=== PATIENT | female | born 1955 | race Caucasian/White ===

== ENCOUNTER → 2017-08-29 07:03 | Outpatient (CLI) | payer BC, SELFPAY ==
[2017-08-29 07:53] LABS: Absolute Lymphocyte Count 1.95 X10^3/ul (0.83-4.51); Absolute Neutrophil Count 3.5 X10^3/uL (2.0-7.7); Basophil# 0.03 X10^3/uL; Basophil% 0.5 % (0-1); Eosinophil# 0.12 X10^3/uL; Eosinophils% 1.9 % (0-5); Hematocrit 40.6 % (37-47); Hemoglobin 13.5 g/dl (12.0-15.0); Lymphocyte # 1.95 X10^3/ul (4.0); Lymphocyte % 31.3 % (19-41); Mean Corp Hgb Conc 33.3 g/gl (32-36); Mean Corpuscular Hgb 30.7 pg (27.0-32.0); Mean Corpuscular Volume 92.3 fL (81-99); Mean Platelet Vol. 9.9 fl (6.2-12.0); Monocyte# 0.65 X10^3/uL; Monocyte% 10.4 % (0-10); Neutrophil # 3.47 X10^3/uL (2.7-7.7); Neutrophil % 55.7 % (47-70); POSITIVE COUNT NO; POSITIVE DIFFERENTIAL NO; POSITIVE MORPHOLOGY NO; Platelet Count 281 K/mm3 (150-450); RBC Distribution Width CV 12.2 % (11.6-14.6); RBC Distribution Width SD 40.9 fl (35.1-43.9); White Blood Count 6.2 K/mm3 (4.4-11.0)
[2017-08-29 08:23] LABS: ALB/GLOB Ratio 1.1 RATIO (0.9-2.4); AST(SGOT) 18 U/L (15-37); Alanine Aminotransfer ALT/SGPT 28 U/L (13-56); Albumin, Serum 3.7 g/dL (3.2-5.0); Alkaline Phosphatase 88 U/L (45-117); Anion Gap 8 (5-15); BUN 15 mg/dL (7-18); BUN/Creat Ratio 18.9 RATIO (10-20); Calcium,Total 8.8 mg/dL (8.5-10.1); Chloride 107 mmol/L (98-107); Cholesterol 191 mg/dL (200); Creatinine, Serum 0.79 mg/dL (0.55-1.02); EST Glomerular Filtration Rate 78 mL/min (>60); Est Glom Filt Rate - Afr Amer 95 mL/min (>60); Globulin 3.5 g/dL (2.2-4.2); Glucose 128 mg/dL (74-106); High Density Lipoprotein 39 mg/dL; Potassium 4.6 mmol/L (3.5-5.1); Protein, Total 7.2 g/dL (6.4-8.2); Sodium Level 139 mmol/L (136-145); Thyroid Stim Hormone (TSH) 2.31 uIU/mL (0.358-3.74); Triglycerides 223 mg/dL; Very Low Density Lipoprotein 45 mg/dL (5-40)
[2017-08-29 08:46] LABS: Hemoglobin A1c 6.9 % (4.2-6.3)
[2017-08-31 10:00] LABS: Hep C Antibodies <0.1 s/co ratio (0.0-0.9)
[2017-08-31 13:14] LABS: Vitamin D,25 Hydroxy 35.8 ng/mL (29.95-100.01)
== END ==
PROVIDERS: Family Provider Family Medicine Geriatric Medicine; PCP Family Medicine Geriatric Medicine; Visit Provider Family Medicine Geriatric Medicine
DX: E11.9 Type 2 diabetes mellitus without complications (principal); E78.4 Other hyperlipidemia; E55.9 Vitamin D deficiency, unspecified; Z13.89 Encounter for screening for other disorder
CPT/HCPCS: 36415; 80053; 80061; 82306; 83036; 84443; 85025; 86803

== ENCOUNTER → 2018-02-11 15:43 | Outpatient (CLI) | payer BC, SELFPAY ==
--- NOTE | 2018-02-11 15:48 | BD_ITS ---
STUDY: DUAL ENERGY X-RAY ABSORPTIOMETRY / DXA REASON FOR EXAM: Female, 62 years old. The patient is postmenopausal. No loss of height. TECHNIQUE: Bone Mineral Density (BMD) measurements of lumbar spine and bilateral hips were obtained. COMPARISON: Comparison is made with prior study dated November 21, 2010. FINDINGS: Lumbar Spine (L1-L4): g/cm2 (1.213) / T-score (0.3) / Z-score (1.5) Findings are suggestive of normal bone density with a low fracture risk. Left Femur Total: g/cm2 (0.922) / T-score (-0.7) / Z-score (0.3) Left Femoral Neck: g/cm2 (0.915) / T-score (-0.9) / Z-score (0.4) Right Femur Total: g/cm2 (0.901) / T-score (-0.8) / Z-score (0.1) Right Femoral Neck: g/cm2 (0.872) / T-score (-1.2) / Z-score (0.1) The T-Scores on the most recent prior examination were: Lumbar Spine (L1-L4): There has been improvement of bone density since the previous examination. Left Femur Total: which represents a worsening of 3.3%. Right Femur Total: which represents a worsening of 7.5%. BD/Dexa Bone Density Study IMPRESSION: The patient is considered osteopenic as outlined below according to World Drew Organization (WHO) criteria with a low fracture risk. There has been worsening of bone density since the previous examination. Reference Information: The T-score is the number of standard deviations above or below the standard which is normal for young adults at their peak bone mineral density. The World Health Organization (WHO) interprets the T-scores as follows: Above -1 Normal bone density Between -1 and -2.5 Osteopenia Equal to / or below -2.5 Osteoporosis As a practical clinical guideline, osteopenia may be graded as follows: Mild -1 through -1.5 Moderate -1.6 through -2.0 Severe -2.1 through -2.4 The Z-score is the number of standard deviations above or below age-matched controls. A Z-score of less than -1.5 would be considered abnormal. References: 1. NIH Osteoporosis and Related Bone Diseases http://www.osteo.org 2. International Society for Clinical Densitometry http://www.iscd.org 3. National Osteoporosis Foundation http://www.nof.org Electronically Signed: Hira Hoyt MD at 16:04 EST Tel [phone], Service support ,
== END ==
PROVIDERS: Family Provider Family Medicine Geriatric Medicine; PCP Family Medicine Geriatric Medicine
DX: E89.40 Asymptomatic postprocedural ovarian failure (principal); M85.80 Other specified disorders of bone density and structure, unspecified site
CPT/HCPCS: 77080

== ENCOUNTER → 2018-03-06 06:54 | Outpatient (CLI) | payer BC, SELFPAY ==
[2018-03-06 09:05] LABS: Absolute Lymphocyte Count 1.97 X10^3/ul (0.83-4.51); Absolute Neutrophil Count 2.8 X10^3/uL (2.0-7.7); Basophil# 0.04 X10^3/uL; Basophil% 0.7 % (0-1); Eosinophil# 0.06 X10^3/uL; Eosinophils% 1.1 % (0-5); Hematocrit 41.3 % (37-47); Hemoglobin 13.4 g/dl (12.0-15.0); Lymphocyte # 1.97 X10^3/ul (4.0); Lymphocyte % 36.4 % (19-41); Mean Corp Hgb Conc 32.4 g/gl (32-36); Mean Corpuscular Hgb 30.2 pg (27.0-32.0); Monocyte# 0.51 X10^3/uL; Monocyte% 9.4 % (0-10); Neutrophil # 2.82 X10^3/uL (2.7-7.7); Neutrophil % 52.2 % (47-70); Platelet Count 268 K/mm3 (150-450); RBC Distribution Width CV 12.3 % (11.6-14.6); RBC Distribution Width SD 41.8 fl (35.1-43.9); Red Blood Count 4.44 M/mm3 (4.2-5.4); White Blood Count 5.4 K/mm3 (4.4-11.0)
[2018-03-06 09:06] LABS: POSITIVE COUNT NO; POSITIVE DIFFERENTIAL NO; POSITIVE MORPHOLOGY NO
[2018-03-06 09:27] LABS: Hemoglobin A1c 7.3 % (4.2-6.3)
[2018-03-06 09:43] LABS: ALB/GLOB Ratio 1.1 RATIO (0.9-2.4); AST(SGOT) 21 U/L (15-37); Alanine Aminotransfer ALT/SGPT 31 U/L (13-56); Albumin, Serum 3.8 g/dL (3.2-5.0); Alkaline Phosphatase 89 U/L (45-117); Anion Gap 9 (5-15); BUN 15 mg/dL (7-18); BUN/Creat Ratio 21.8 RATIO (10-20); Calcium,Total 8.9 mg/dL (8.5-10.1); Chloride 106 mmol/L (98-107); Cholesterol 185 mg/dL (200); Creatinine, Serum 0.69 mg/dL (0.55-1.02); EST Glomerular Filtration Rate 92 mL/min (>60); Est Glom Filt Rate - Afr Amer 112 mL/min (>60); Globulin 3.4 g/dL (2.2-4.2); Glucose 119 mg/dL (74-106); High Density Lipoprotein 41 mg/dL; Potassium 4.2 mmol/L (3.5-5.1); Protein, Total 7.2 g/dL (6.4-8.2); Sodium Level 141 mmol/L (136-145); Thyroid Stim Hormone (TSH) 1.98 uIU/mL (0.358-3.74); Triglycerides 192 mg/dL; Very Low Density Lipoprotein 38 mg/dL (5-40)
== END ==
PROVIDERS: Family Provider Family Medicine Geriatric Medicine; PCP Family Medicine Geriatric Medicine; Referring Provider Family Medicine Geriatric Medicine; Visit Provider Family Medicine Geriatric Medicine
DX: E11.9 Type 2 diabetes mellitus without complications (principal); E78.49 Other hyperlipidemia
CPT/HCPCS: 36415; 80053; 80061; 83036; 84443; 85025

== ENCOUNTER → 2018-07-27 07:54 | Outpatient (CLI) | payer BC, SELFPAY ==
[2018-07-01 13:52] VITALS: BMI 28.9
--- NOTE | 2018-07-27 07:56 | ECHOD_ITS ---
Reason For Study: MVP Procedure This was a 2D Doppler, Color Flow transthoracic echocardiogram. The exam was of adequate technical quality. Exam performed in department. Left Ventricle Normal LV size. Left ventricular systolic function is normal. The estimated ejection fraction is 65 %. Diastolic function is indeterminate. No regional wall motion abnormalities noted. Right Ventricle Normal RV size. Normal systolic function. Atria Normal left atrium. Normal right atrium. No doppler evidence for ASD. Mitral Valve There is no mitral annular calcification. Mild diffuse mitral valve thickening. Mild mitral valve prolapse. Trivial mitral valve insufficiency. Tricuspid Valve Normal tricuspid valve. Trivial tricuspid valve insufficiency. Right ventricular systolic pressure estimated to be 22 mmHg. Aortic Valve Trisinus/trileaflet aortic valve. Normal aortic valve. Pulmonic Valve The pulmonic valve is not well visualized. Great Vessels Normal sized aortic root. Pericardium/Pleural No pericardial effusion. MMode/2D Measurements & Calculations LVIDd: 4.1 cm IVSd: 0.81 cm Ao root diam: 3.4 cm LVIDs: 2.6 cm LVPWd: 0.84 cm RVDd: 2.3 cm FS: 35.3 % LAV(MOD-bp): 38.8 ml LA A4 area: 15.4 cm2 LA dimension(2D): 3.0 cm LAV(MOD-bp) Indexed: 20.8 ml/m2 LAV(MOD-sp2): 35.6 ml LAV(MOD-sp4): 40.5 ml RA A4 area: 9.8 cm2 Time Measurements MV dec time: 0.23 sec Doppler Measurements & Calculations MV E max rolly: 75.0 cm/sec Lat Peak E' Rolly: 7.7 cm/sec Med Peak E' Rolly: 5.4 cm/sec MV A max rolly: 63.4 cm/sec E/E' lat: 9.7 E/E' med: 13.8 MV E/A: 1.2 Ao V2 max: 91.3 cm/sec LV V1 max: 84.0 cm/sec PA V2 max: 95.2 cm/sec Ao max P.3 mmHg LV V1 max P.8 mmHg TR max rolly: 217.4 cm/sec TR max P.1 mmHg Interpretation Summary Left ventricular systolic function is normal. The estimated ejection fraction is 65 %. Mild diffuse mitral valve thickening. Mild mitral valve prolapse. Trivial mitral valve insufficiency. Trivial tricuspid valve insufficiency. Right ventricular systolic pressure estimated to be 22 mmHg. Diastolic function is indeterminate. Ordering Physician: Tee Haskins Referring Physician: GIAN CANTRELL CHI Performed By: Deana Booker, HENOKCS, RVT
== END ==
PROVIDERS: Family Provider Family Medicine Geriatric Medicine; PCP Family Medicine Geriatric Medicine; Referring Provider Internal Medicine Cardiovascular Disease; Visit Provider Internal Medicine Cardiovascular Disease
DX: R07.9 Chest pain, unspecified (principal); I34.1 Nonrheumatic mitral (valve) prolapse
CPT/HCPCS: 93306

== ENCOUNTER → 2018-07-30 09:17 | Outpatient (CLI) | payer BC, SELFPAY ==
[2018-07-01 13:52] VITALS: BMI 28.9
--- NOTE | 2018-07-30 09:20 | STE_ITS ---
Reason For Study: CHEST PAIN Stress Results Protocol: Stress Echocardiogram Maximum Predicted HR: 159 bpm Target HR: 135 bpm % Maximum Predicted HR: 104 % DurationHeart Rate Stage (mm:ss) (bpm) BP Comment BASELINE 79 110/70 BRENNA PROTOCOL- STAGE 1 3:00 102 114/74 BRENNA PROTOCOL- STAGE 2 3:00 122 120/68 BRENNA PROTOCOL- STAGE 3 3:00 146 124/70 BRENNA PROTOCOL- STAGE 4 1:00 166 / SL SOB, FATIGUE, NO CP RECOVERY 102 120/64 Stress Duration: 10:00 mm:ss Maximum Stress HR: 166 bpm METS: 13 Baseline Echocardiogram Findings Stress Echo Wall motion Data Resting WM Intermediate WM Stress WM Resting Wall Motion Wall Motion Stress All segments Normal. All segments Hyperkinetic. Ejection Fraction 55 %. Ejection Fraction 70 %. Stress Results Heart rate response: Appropriate Blood pressure response: Normal resting blood pressure-appropriate response Arrhythmias: None Functional capacity: Good Stopped secondary to fatigue. EKG Data Baseline ECG: Normal sinus rhythm. Peak exercise ECG: no obvious ECG changes. Symptoms with Stress No c/o chest discomfort during exercise / recovery. Interpretation Summary Negative (adequate) Stress Echocardiogram Ordering Physician: Tee Haskins Referring Physician: Tee Haskins Performed By: Nelda Osorio, MILTON, RVT
== END ==
PROVIDERS: Family Provider Family Medicine Geriatric Medicine; PCP Family Medicine Geriatric Medicine; Referring Provider Internal Medicine Cardiovascular Disease; Visit Provider Internal Medicine Cardiovascular Disease
DX: R07.9 Chest pain, unspecified (principal)
CPT/HCPCS: 93017; 93350

== ENCOUNTER → 2018-09-04 06:57 | Outpatient (CLI) | payer BC, SELFPAY ==
[2018-07-01 13:52] VITALS: BMI 28.9
[2018-09-04 08:05] LABS: Absolute Lymphocyte Count 2.12 X10^3/ul (0.83-4.51); Basophil# 0.03 X10^3/uL; Basophil% 0.5 % (0-1); Eosinophil# 0.13 X10^3/uL; Eosinophils% 2.2 % (0-5); Hematocrit 39.7 % (37-47); Lymphocyte # 2.12 X10^3/ul (4.0); Lymphocyte % 35.3 % (19-41); Mean Corp Hgb Conc 32.7 g/gl (32-36); Mean Corpuscular Hgb 30.4 pg (27.0-32.0); Mean Corpuscular Volume 92.8 fL (81-99); Mean Platelet Vol. 9.6 fl (6.2-12.0); Monocyte# 0.72 X10^3/uL; Neutrophil % 49.8 % (47-70); Platelet Count 277 K/mm3 (150-450); RBC Distribution Width CV 12.6 % (11.6-14.6); RBC Distribution Width SD 42.3 fl (35.1-43.9); Red Blood Count 4.28 M/mm3 (4.2-5.4)
[2018-09-04 08:08] LABS: POSITIVE COUNT NO; POSITIVE DIFFERENTIAL NO; POSITIVE MORPHOLOGY NO
[2018-09-04 08:44] LABS: Hemoglobin A1c 6.8 % (4.2-6.3)
[2018-09-04 08:47] LABS: ALB/GLOB Ratio 1.1 RATIO (0.9-2.4); AST(SGOT) 19 U/L (15-37); Alanine Aminotransfer ALT/SGPT 25 U/L (13-56); Albumin, Serum 3.5 g/dL (3.2-5.0); Alkaline Phosphatase 86 U/L (45-117); Anion Gap 6 (5-15); BUN 23 mg/dL (7-18); BUN/Creat Ratio 28.6 RATIO (10-20); Calcium,Total 8.5 mg/dL (8.5-10.1); Chloride 109 mmol/L (98-107); EST Glomerular Filtration Rate 77 mL/min (>60); Est Glom Filt Rate - Afr Amer 93 mL/min (>60); Globulin 3.3 g/dL (2.2-4.2); Glucose 121 mg/dL (74-106); Potassium 4.2 mmol/L (3.5-5.1); Protein, Total 6.8 g/dL (6.4-8.2); Sodium Level 142 mmol/L (136-145); Thyroid Stim Hormone (TSH) 1.95 uIU/mL (0.358-3.74)
== END ==
PROVIDERS: Family Provider Family Medicine Geriatric Medicine; PCP Family Medicine Geriatric Medicine; Referring Provider Family Medicine Geriatric Medicine; Visit Provider Family Medicine Geriatric Medicine
DX: E11.9 Type 2 diabetes mellitus without complications (principal); E78.5 Hyperlipidemia, unspecified; E55.9 Vitamin D deficiency, unspecified
CPT/HCPCS: 80053; 82306; 83036; 84443; 85025

== ENCOUNTER → 2018-09-25 07:02 | Outpatient (CLI) | payer BC, SELFPAY ==
[2018-07-01 13:52] VITALS: BMI 28.9
[2018-09-25 08:18] LABS: Cholesterol 202 mg/dL (200); High Density Lipoprotein 45 mg/dL; Triglycerides 203 mg/dL; Very Low Density Lipoprotein 41 mg/dL (5-40)
== END ==
PROVIDERS: Family Provider Family Medicine Geriatric Medicine; PCP Family Medicine Geriatric Medicine; Referring Provider Family Medicine Geriatric Medicine; Visit Provider Family Medicine Geriatric Medicine
DX: E78.49 Other hyperlipidemia (principal)
CPT/HCPCS: 80061

== ENCOUNTER → 2019-09-24 07:29 | Outpatient (CLI) | payer BC, SELFPAY ==
[2018-07-01 13:52] VITALS: BMI 28.9
[2019-09-24 08:25] LABS: Absolute Lymphocyte Count 2.12 X10^3/uL (0.83-4.51); Absolute Neutrophil Count 3.1 X10^3/uL (2.0-7.7); Basophil# 0.06 X10^3/uL; Eosinophil# 0.11 X10^3/uL; Eosinophils% 1.8 % (0-5); Hematocrit 42.2 % (37-47); Hemoglobin 13.5 g/dL (12.0-15.0); Lymphocyte # 2.12 X10^3/ul (4.0); Mean Corpuscular Hgb 30.1 pg (27.0-32.0); Mean Corpuscular Volume 94.2 fL (81-99); Mean Platelet Vol. 9.8 fl (6.2-12.0); Monocyte% 9.9 % (0-10); NRBC Flagged by Analyzer 0 % (0-5); Neutrophil # 3.14 X10^3/uL (2.7-7.7); Neutrophil % 51.8 % (47-70); Platelet Count 304 K/mm3 (150-450); RBC Distribution Width CV 11.9 % (11.6-14.6); RBC Distribution Width SD 41.2 fl (35.1-43.9); Red Blood Count 4.48 M/mm3 (4.2-5.4); White Blood Count 6.1 K/mm3 (4.4-11.0)
[2019-09-24 09:01] LABS: Cholesterol 201 mg/dL (200); High Density Lipoprotein 40 mg/dL; Thyroid Stim Hormone (TSH) 2.18 uIU/mL (0.358-3.74); Triglycerides 202 mg/dL; Very Low Density Lipoprotein 40 mg/dL (5-40)
[2019-09-24 09:09] LABS: Microalbumin,Random Urine 16.4 mg/L (NO RANGE EST.); Microalbumin:Creatinine Ratio 12.3 mg/g CRE (<30 mg/g CRE)
[2019-09-24 12:50] LABS: Hemoglobin A1c 6.7 % (3.8-5.6)
[2019-09-26 08:42] LABS: Vitamin D,25 Hydroxy 52.8 ng/mL
== END ==
PROVIDERS: PCP Family Medicine; Referring Provider Family Medicine; Visit Provider Family Medicine
DX: E11.9 Type 2 diabetes mellitus without complications (principal); E55.9 Vitamin D deficiency, unspecified; E03.9 Hypothyroidism, unspecified
CPT/HCPCS: 36415; 80061; 82043; 82306; 82570; 83036; 84443; 85025

== ENCOUNTER → 2020-08-25 07:46 | Outpatient (CLI) | payer OTHER, SELFPAY ==
[2018-07-01 13:52] VITALS: BMI 28.9
--- NOTE | 2020-08-25 07:50 | RAD_ITS ---
STUDY: X-RAY - CERVICAL SPINE REASON FOR EXAM: Female, 65 years old. left posterior neck pain/spasms TECHNIQUE: 3 view(s) of the cervical spine were obtained. COMPARISON: None FINDINGS: Normal anterior atlantoaxial articulation. Normal odontoid process. Normal cervical lordosis. Disc space narrowing with endplate sclerosis and uncovertebral hypertrophy at C5-C6 Normal remaining disc space heights. No subluxation. The soft tissue structures are unremarkable. RAD/Cerv Spine 2 or 3 Views IMPRESSION: Degenerative disc disease at C5-C6. Electronically Signed: Uziel Santiago MD (Brooks) at 15:33 EDT , Service support ,
== END ==
PROVIDERS: PCP Family Medicine; Referring Provider Family Medicine; Visit Provider Family Medicine
DX: M62.838 Other muscle spasm (principal)
CPT/HCPCS: 72040

== ENCOUNTER → 2020-09-08 07:08 | Outpatient (CLI) | payer OTHER, SELFPAY ==
[2018-07-01 13:52] VITALS: BMI 28.9
[2020-09-08 08:23] LABS: Hemoglobin A1c 6.7 % (3.8-5.6)
[2020-09-08 08:24] LABS: Microalbumin,Random Urine 14.5 mg/L (NO RANGE EST.); Microalbumin:Creatinine Ratio 13.8 mg/g CRE (<30 mg/g CRE)
[2020-09-08 08:34] LABS: Vitamin D,25 Hydroxy 44.1 ng/mL
[2020-09-08 08:45] LABS: ALB/GLOB Ratio 1.1 RATIO (0.9-2.4); AST(SGOT) 18 U/L (15-37); Alanine Aminotransfer ALT/SGPT 27 U/L (13-56); Albumin, Serum 3.9 g/dL (3.2-5.0); Alkaline Phosphatase 102 U/L (45-117); Anion Gap 7 (5-15); BUN 17 mg/dL (7-18); BUN/Creat Ratio 22.4 RATIO (10-20); Calcium,Total 8.7 mg/dL (8.5-10.1); Chloride 105 mmol/L (98-107); Cholesterol 183 mg/dL (200); Creatinine, Serum 0.76 mg/dL (0.55-1.02); EST Glomerular Filtration Rate 82 mL/min (>60); Est Glom Filt Rate - Afr Amer 99 mL/min (>60); Globulin 3.4 g/dL (2.2-4.2); Glucose 124 mg/dL (74-106); High Density Lipoprotein 47 mg/dL; Protein, Total 7.3 g/dL (6.4-8.2); Sodium Level 138 mmol/L (136-145); Thyroid Stim Hormone (TSH) 1.72 uIU/mL (0.358-3.74); Triglycerides 155 mg/dL; Very Low Density Lipoprotein 31 mg/dL (5-40)
== END ==
PROVIDERS: PCP Family Medicine; Visit Provider Family Medicine
DX: E11.9 Type 2 diabetes mellitus without complications (principal); E03.9 Hypothyroidism, unspecified; E55.9 Vitamin D deficiency, unspecified
CPT/HCPCS: 36415; 80053; 80061; 82043; 82306; 82570; 83036; 84443

== ENCOUNTER 2020-11-05 17:00 | Outpatient (RCR) | payer OTHER, SELFPAY ==
[2018-07-01 13:52] VITALS: BMI 28.9
--- NOTE | 2020-09-13 18:15 | HP.PTEVAL_ITS ---
Patient's Visit Information JONATHON LAW is a 65 year old F referred to Physical Therapy by Dr. Haydee Workman MD with a diagnosis of CERVICAL PAIN. Date of Evaluation: 09/13/20 Physical Therapist: Simone Chin PT, Cert MDT, OCS - Visit Plan Frequency: 2x /Week Duration: 4 Weeks Plan: PT INERVETIONS MODALTIES US/ICTX 15# 22# X15-20 MINS,CELIO EX'S ,AND POSTURAL EX'S - Subjective This 65 y/o female presents to physical therapy with left neck pain. Patient has had left neck pain for 9 months . Location of pain mastoid to jaw UT ,at one point patient has had triceps symptoms. Patient seen chiropractor and massage therapist didn't help. Seen DR x-rays DDD and muscle relaxers. Aggravating factors turning neck, flexion and lifting . Alleviating factors rest. Denies parathesia/tingling. Pain affects sleeping. Denies CANELA/tinnitus/nausea/dizziness. Patient pain affects job demands and housework . Patient goal to eliminate pain. Patient pain affects QOL. SOCIAL: . VOCATION: [employer] - Pain Left Neck Pain Intensity (Out of 10): 8 Pain Intensity Range: 10 - Objective POSTURE: mild forward posture. PALAPTION: tender C1-2 ,UT/levator. NEURO: denies parathesia/tingling, reflexes C5-6-7 2/3. CERVICAL ROM: flexion min pain, extension min/mod loss, lateral flexion /rotation min loss, retraction min loss. BUE: left shoulder 4-/5,right 4/5 except shoulder 4-/5 - Special Tests C/S Radiculapathy - Left Upper limb tension test: Negative C/S Radiculapathy - Right Upper limb tension test: Negative C/S Radiculapathy - Left Spurlings: Positive C/S Radiculapathy - Right Spurlings: Negative C/S Radiculapathy - Left Cervical distraction: Negative C/S Radiculapathy - Right Cervical distraction: Negative C/S Radiculapathy - Left Relief test: Negative Sharp Soco: Negative Vertebral Artery Test: Negative Alar Ligament Test: Negative Cervical Sitting: Protrusion - Mechanical Response: No effect Cervical Sitting: Protrusion - Symptoms During Testing: Increases Cervical Sitting: Protrusion - Symptoms After Testing: No worse Cervical Sitting: Retraction - Mechanical Response: No effect Cervical Sitting: Retraction - Symptoms During Testing: Increases Cervical Sitting: Retraction - Symptoms After Testing: No worse Cervical Sitting: Retraction-Extension - Mechanical Response: No effect Cerv Sitting: Retraction-Extension - Symptoms During Testing: Increases Cerv Sitting: Retraction-Extension - Symptoms After Testing: No worse Cervical Sitting: Sidebend Right - Mechanical Response: No effect Cervical Sitting: Sidebend Right - Symptoms After Testing: No worse Cervical Sitting: Sidebend Left - Mechanical Response: No effect Cervical Sitting: Sidebend Left - Symptoms During Testing: Increases Cervical Sitting: Sidebend Left - Symptoms After Testing: No worse Cervical Sitting: Rotation Right - Mechanical Response: No effect Cervical Sitting: Rotation Right - Symptoms During Testing: Increases Cervical Sitting: Rotation Right - Symptoms After Testing: No worse Cervical Sitting: Rotation Left - Mechanical Response: No effect Cervical Sitting: Rotation Left - Symptoms During Testing: Increases Cervical Sitting: Rotation Left - Symptoms After Testing: No worse Cervical Sitting: Flexion - Symptoms After Testing: Worse Cervical Lying: Retraction - Mechanical Response: No effect Cervical Lying: Retraction - Symptoms During Testing: Decreases Cervical Lying: Retraction - Symptoms After Testing: No better Comments:: increases in cervical spine - Goals Goal 1:: I with HEP Goal Time Frame: 4-6 Weeks Goal 2:: Improve posture for ADL'S Goal Time Frame: 4-6 Weeks Goal 3:: Decrease left neck pain by 50 % or greater to improve function Goal Time Frame: 4-6 Weeks Goal 4:: Patient improve cervical ROM for function of recovery Goal Time Frame: 4-6 Weeks Goal 5:: Patient to increase neck owestry score by 5 points or> to improve function/QOL. Goal Time Frame: 4-6 Weeks - Rehabilitation Potential Physical Therapy Diagnosis: This patient has left cervical pain increase with test movements , Spurling test to left ,positioning better ,decrease cervical ROM ,with supine neck retraction and traction thus benefit from skilled PT Rehabilitation Potential: Good - Anticipated Interventions Patient/Client Instruction: Educate patient on: Condition, Plan of Care For the Purpose of:: To decrease pain, To increase ROM, To improve muscle performance and motor function, To improve ability to perform ADL's, To increase tolerance to activity/condition/position, To decrease level of supervision to perform tasks, To improve health of tissue, To decrease soft tissue restriction, To increase flexibility/ROM, To reduce risk of recurrence, To improve ability to perform tasks related to life management Therapeutic Exercise to Include: Strength training, Postural training, Active ROM, Celio Exercises For the Purpose of:: To decrease pain, To improve muscle performance and motor function, To improve performance and independence with ADL's, To improve ability of physical actions for home/community/work/leisure, To improve health of tissue, To decrease soft tissue restriction, To increase flexibility/ROM, To reduce risk of recurrence, To improve ability to perform tasks related to life management TENS: Yes IF ES: Yes Cryotherapy (ice pack, ice massage): Yes Thermo therapy (hot pack): Yes Ultrasound (thermal/non thermal): Yes Intermittent cervical traction: Yes For the Purpose of:: To decrease pain, To increase ROM, To improve muscle performance and motor function, To improve ability to perform ADL's, To increase tolerance to activity/condition/position, To improve ability of physical actions for home/community/work/leisure, To improve gait and locomotor functions, To decrease soft tissue restriction, To increase flexibility/ROM, To reduce risk of recurrence, To improve ability to perform tasks related to life management Thank you for the opportunity to evaluate your patient. For Medicare and Medicare HMO plans, please review the plan of care and approve it. It will need to be FAXED BACK to us at [phone] for Medicare purposes. For Medicare only, by signing this I certify the plan of care. Please let me know if there are questions or concerns regarding this plan of care. Physician Signature: Date:
--- NOTE | 2020-11-05 17:26 | HP.PTDCSUM ---
It has been my pleasure to treat JONATHON LAW referred by Dr. Haydee Workman MD, with the diagnosis of CERVICAL PAIN for a total of 7 visit(s). Discharge Date: 11/05/20 Please see the following information for a summary of their discharge status. Subjective: Doing alot better, Ready for d/c . See how I do on own Left Neck Pain Intensity (Out of 10): 0 % Improvement: 90 Objective/Function: POSTURE: WFL. NEURO: INTACT. CERVICAL ROM; MIN LOSS LATERAL FLEXION/ROTATION,EXTENISON Goal 1:: I with HEP Goal Progress: Goal Met Goal 2:: Improve posture for ADL'S Goal Progress: Goal Met Goal 3:: Decrease left neck pain by 50 % or greater to improve function Goal Progress: Goal Met Goal 4:: Patient improve cervical ROM for function of recovery Goal Progress: Goal Met Goal 5:: Patient to increase neck owestry score by 5 points or> to improve function/QOL. Goal Progress: Goal Met Plan: d/c If there are questions or concerns regarding this patient's physical therapy, please feel free to call me at [phone]. Thank you for the referral of this patient. Sincerely, Simone Chin, PT, Cert MDT, OCS Balance/Gait/Functional tests - Balance/Special Test Scores Oswestry Neck Score: 2
== END 2020-11-05 19:00 | disposition home or self-care (01) ==
LOC: PT 17:00
PROVIDERS: PCP Family Medicine; Referring Provider Family Medicine; Visit Provider Family Medicine
DX: M54.2 Cervicalgia (principal)
CPT/HCPCS: 97012; 97035; 97162

== ENCOUNTER → 2021-09-14 | Outpatient (CLI) | payer BC, SELFPAY ==
[2021-09-14 08:28] LABS: Microalbumin,Random Urine 7.2 mg/L (NO RANGE EST.); Microalbumin:Creatinine Ratio 16.5 mg/g CRE (<30 mg/g CRE)
[2021-09-14 08:45] LABS: ALB/GLOB Ratio 1.1 RATIO (0.9-2.4); AST(SGOT) 19 U/L (15-37); Alanine Aminotransfer ALT/SGPT 30 U/L (13-56); Albumin, Serum 3.7 g/dL (3.2-5.0); Alkaline Phosphatase 96 U/L (45-117); Anion Gap 5 (5-15); BUN 18 mg/dL (7-18); BUN/Creat Ratio 23.2 RATIO (10-20); Calcium,Total 9.2 mg/dL (8.5-10.1); Chloride 108 mmol/L (98-107); Cholesterol 201 mg/dL (200); Creatinine, Serum 0.78 mg/dL (0.55-1.02); EST Glomerular Filtration Rate 79 mL/min (>60); Est Glom Filt Rate - Afr Amer 96 mL/min (>60); Globulin 3.3 g/dL (2.2-4.2); Glucose 131 mg/dL (74-106); High Density Lipoprotein 45 mg/dL; Potassium 4.5 mmol/L (3.5-5.1); Sodium Level 140 mmol/L (136-145); Thyroid Stim Hormone (TSH) 2.07 uIU/mL (0.358-3.74); Triglycerides 225 mg/dL; Very Low Density Lipoprotein 45 mg/dL (5-40)
[2021-09-14 08:46] LABS: Hemoglobin A1c 6.7 % (3.8-5.6)
[2021-09-16 08:30] LABS: Vitamin D,25 Hydroxy 37.2 ng/mL
== END | disposition home or self-care (01) ==
LOC: LAB 07:03
PROVIDERS: PCP Family Medicine; Visit Provider Family Medicine
DX: E11.9 Type 2 diabetes mellitus without complications (principal); E03.9 Hypothyroidism, unspecified; E55.9 Vitamin D deficiency, unspecified
CPT/HCPCS: 36415; 80053; 80061; 82043; 82306; 82570; 83036; 84443

== ENCOUNTER → 2022-08-27 | Outpatient (CLI) | payer BC, SELFPAY ==
[2022-08-27 08:10] LABS: Absolute Lymphocyte Count 1.59 X10^3/uL (0.83-4.51); Absolute Neutrophil Count 2.6 X10^3/uL (2.0-7.7); Basophil# 0.06 X10^3/uL; Basophil% 1.2 % (0-1); Eosinophil# 0.09 X10^3/uL; Eosinophils% 1.8 % (0-5); Hematocrit 42.1 % (37-47); Hemoglobin 13.9 g/dL (12.0-15.0); Lymphocyte # 1.59 X10^3/ul (0.83-4.51); Lymphocyte % 32.1 % (19-41); Mean Platelet Vol. 9.5 fl (6.2-12.0); Monocyte# 0.58 X10^3/uL; Monocyte% 11.7 % (0-10); NRBC Flagged by Analyzer 0 % (0-5); Neutrophil % 52.6 % (47-70); Platelet Count 258 K/mm3 (150-450); RBC Distribution Width CV 12.2 % (11.6-14.6); RBC Distribution Width SD 42.6 fl (35.1-43.9); Red Blood Count 4.48 M/mm3 (4.2-5.4)
[2022-08-27 08:33] LABS: Microalbumin,Random Urine 5.6 mg/L (NO RANGE EST.)
[2022-08-27 08:34] LABS: Vitamin D,25 Hydroxy 49.9 ng/mL
[2022-08-27 08:50] LABS: Hemoglobin A1c 6.9 % (3.8-5.6)
[2022-08-27 09:06] LABS: ALB/GLOB Ratio 1.1 RATIO (0.9-2.4); AST(SGOT) 24 U/L (15-37); Alanine Aminotransfer ALT/SGPT 37 U/L (13-56); Albumin, Serum 3.6 g/dL (3.2-5.0); Alkaline Phosphatase 91 U/L (45-117); Anion Gap 6 (5-15); BUN 15 mg/dL (7-18); BUN/Creat Ratio 22.6 RATIO (10-20); Calcium,Total 8.9 mg/dL (8.5-10.1); Chloride 108 mmol/L (98-107); Cholesterol 207 mg/dL (200); Creatinine, Serum 0.66 mg/dL (0.55-1.02); EST Glomerular Filtration Rate 95 mL/min (>60); Est Glom Filt Rate - Afr Amer 115 mL/min (>60); Globulin 3.3 g/dL (2.2-4.2); Glucose 142 mg/dL (74-106); High Density Lipoprotein 42 mg/dL; Potassium 4.3 mmol/L (3.5-5.1); Protein, Total 6.9 g/dL (6.4-8.2); Sodium Level 141 mmol/L (136-145); Thyroid Stim Hormone (TSH) 3.55 uIU/mL (0.358-3.74); Triglycerides 286 mg/dL; Very Low Density Lipoprotein 57 mg/dL (5-40)
== END | disposition home or self-care (01) ==
LOC: LAB 07:30
PROVIDERS: PCP Family Medicine; Referring Provider Family Medicine; Visit Provider Family Medicine
DX: E11.9 Type 2 diabetes mellitus without complications (principal); E03.9 Hypothyroidism, unspecified; E55.9 Vitamin D deficiency, unspecified
CPT/HCPCS: 36415; 80053; 80061; 82043; 82306; 82570; 83036; 84443; 85025

== ENCOUNTER → 2023-09-18 | Outpatient (CLI) | payer MEDICARE, SELFPAY ==
[2023-09-18 08:00] LABS: Absolute Lymphocyte Count 2.19 X10^3/uL (0.83-4.51); Absolute Neutrophil Count 3.5 X10^3/uL (2.0-7.7); Basophil# 0.07 X10^3/uL; Basophil% 1.1 % (0-1); Eosinophil# 0.09 X10^3/uL; Eosinophils% 1.4 % (0-5); Hematocrit 42.5 % (37-47); Hemoglobin 13.6 g/dL (12.0-15.0); Lymphocyte # 2.19 X10^3/ul (0.83-4.51); Lymphocyte % 33.4 % (19-41); Mean Corpuscular Hgb 30.1 pg (27.0-32.0); Monocyte# 0.68 X10^3/uL; Monocyte% 10.4 % (0-10); NRBC Flagged by Analyzer 0 % (0-5); Neutrophil % 53.4 % (47-70); Platelet Count 311 K/mm3 (150-450); RBC Distribution Width CV 12.1 % (11.6-14.6); RBC Distribution Width SD 41.5 fl (35.1-43.9); Red Blood Count 4.52 M/mm3 (4.2-5.4); White Blood Count 6.6 K/mm3 (4.4-11.0)
[2023-09-18 08:28] LABS: Microalbumin,Random Urine 24.7 mg/L (NO RANGE EST.); Microalbumin:Creatinine Ratio 15.8 mg/g CRE (<30 mg/g CRE)
[2023-09-18 08:53] LABS: Vitamin D,25 Hydroxy 45.5 ng/mL
[2023-09-18 20:28] LABS: Hemoglobin A1c 7.1 % (3.8-5.6)
[2023-09-19 06:51] LABS: ALB/GLOB Ratio 1.1 RATIO (0.9-2.4); AST(SGOT) 28 U/L (15-37); Alanine Aminotransfer ALT/SGPT 33 U/L (13-56); Albumin, Serum 3.9 g/dL (3.2-5.0); Alkaline Phosphatase 92 U/L (45-117); Anion Gap 6 (5-15); BUN 18 mg/dL (7-18); BUN/Creat Ratio 24.4 RATIO (10-20); Calcium,Total 9.3 mg/dL (8.5-10.1); Chloride 105 mmol/L (98-107); Cholesterol 202 mg/dL (200); Creatinine, Serum 0.74 mg/dL (0.55-1.02); EST Glomerular Filtration Rate 84 mL/min (>60); Est Glom Filt Rate - Afr Amer 101 mL/min (>60); Globulin 3.5 g/dL (2.2-4.2); Glucose 167 mg/dL (74-106); High Density Lipoprotein 40 mg/dL; Potassium 4.3 mmol/L (3.5-5.1); Protein, Total 7.4 g/dL (6.4-8.2); Sodium Level 138 mmol/L (136-145); Thyroid Stim Hormone (TSH) 1.98 uIU/mL (0.358-3.74); Triglycerides 270 mg/dL; Very Low Density Lipoprotein 54 mg/dL (5-40)
== END | disposition home or self-care (01) ==
LOC: LAB 07:11
PROVIDERS: PCP Family Medicine; Referring Provider Family Medicine; Visit Provider Family Medicine
DX: E11.9 Type 2 diabetes mellitus without complications (principal); E03.9 Hypothyroidism, unspecified; E55.9 Vitamin D deficiency, unspecified
CPT/HCPCS: 36415; 80053; 80061; 82043; 82306; 82570; 83036; 84443; 85025

== ENCOUNTER 2023-10-16 12:48 | Emergency (ER) | payer MEDICARE, SELFPAY ==
[2023-10-16 12:49] VITALS: PULSE 84; RESP 14; TEMP 35.4; O2SAT 100; BMI 32.4
--- NOTE | 2023-10-16 13:29 | EDS_ITS ---
HPI History of Present Illness Chief Complaint: Upper Extremity Injury Detail of Chief Complaint: Right wrist injury Informant: patient Narrative Narrative: Patient presents the emergency department with complaint of injury to the right wrist. Patient states that she was on a flat trailer about 2 feet off the ground when she lost her balance and fell onto her right side injuring her right wrist and hip. She denies wrecking her head. No loss of consciousness. She denies neck pain. She denies chest pain or abdominal pain. She has been ambulatory since the fall. Patient is right-hand dominant. [facility] Medical History (Updated 10/16/23 @ 14:[address] Kristi Pang, DO) Chest pain History of left heart catheterization (LHC) (~12/29/07) Hypothyroidism Mixed hyperlipidemia Type 2 diabetes mellitus Home Medications ?Medication ?Instructions ?Recorded ?Last Taken ?Type ergocalciferol (vitamin D2) 1,250 50,000 unit PO QMONTH 07/01/18 Unknown History mcg (50,000 unit) capsule levothyroxine 50 mcg tablet 50 mcg PO DAILY 07/01/18 Unknown History lisinopril 2.5 mg tablet 2.5 mg PO DAILY 07/01/18 Unknown History metformin 500 mg tablet 500 mg PO DAILY 07/01/18 Unknown History multivitamin 1 tab PO DAILY 07/01/18 Unknown History simvastatin 40 mg tablet 40 mg PO .COMPLEX 07/01/18 Unknown History hydrocodone-acetaminophen 5-325mg 1 tab PO Q4H PRN PRN Pain 2 days 10/16/23 Unknown Rx 5mg-325mg #10 TABLETS Allergy/AdvReac Type Severity Reaction Status Date / Time Sulfa (Sulfonamide Allergy Severe Rash Verified 10/16/23 12:51 Antibiotics) Tetanus Vaccines and Toxoid Allergy Severe swelling, Verified 10/16/23 12:51 pain Family History Father CAD (coronary artery disease) Myocardial infarction Surgical History History of total hysterectomy History of cholecystectomy Social History (Updated 07/01/18 @ 14:[address] Tee Haskins MD) Smoking Status: Never smoker alcohol intake: current details: occasional substance use type: does not use ROS ROS ED Review of Systems ROS Unobtainable: other Constitutional Constitutional ED: Reports lethargy; Denies chills, fever(s), sweats or weight loss Eyes Eyes: Denies blurry vision, change in vision or diplopia ENT ENT ED: Denies rhinorrhea or sore throat Cardiovascular Cardiovascular: Denies chest pain, orthopnea or racing heartbeat Respiratory/Chest Respiratory/Chest: Denies cough, dyspnea, dyspnea on exertion, orthopnea or sputum Gastrointestinal Gastrointestinal: Denies abdominal pain, diarrhea, nausea or vomiting Genitourinary Genitourinary ED: Denies dysuria, hematuria or urinary frequency Musculoskeletal Musculoskeletal: Reports other Details: Right wrist injury/pain ; Denies arthralgias, back pain, myalgias or neck pain Integumentary Denies abscess, Abrasions or rash Neurologic Neurologic: Denies headache(s) or weakness Psychiatric Psychiatric: Denies anxiety, depression or suicidal thoughts Endocrine Endocrinology: Denies polydipsia, polyphagia or polyuria Hematologic/Lymphatic Hematologic/Lymphatic: Denies easy bleeding, easy bruising or lymphadenopathy Allergic/Immunologic Allergic/Immunologic ED: Denies mouth swelling, tongue swelling or urticaria EXAM Physical Exam Const Vital Signs: 10/16/23 12:49 Temperature 95.7 F L Temperature Source Temporal Pulse Rate 84 Respiratory Rate 14 Pulse Ox 100 Oxygen Delivery Method Room Air Positive well nourished and well developed General Appearance ED: well developed and NAD HEENT Reports TM's clear and moist mucous membranes normocephalic and atraumatic; Negative for trauma or tenderness Tympanic Membrane ED: Yes TM's clear Eyes PERRL and EOMs intact bilaterally General Eye ED: Negative for pale conjunctiva or scleral icterus Neck no lymphadenopathy, supple and no JVD General: Negative for tenderness Chest Wall inspection of chest normal and palpation of chest normal Chest: Negative for tenderness Resp normal respiratory effort and clear to auscultation bilaterally Effort and Inspection: Negative for respiratory distress or pain with movement Auscultation: Negative for rhonchi, wheezes or diminished lung sounds Cardio regular rate, regular rhythm, S1 normal heart sound, S2 normal heart sound and no murmurs Peripheral Pulses: pulses 2+ throughout GI normal to inspection, nondistended, normoactive bowel sounds, soft to palpation, non-tender, non-distended and no masses Back/Spine no CVA tenderness and no thoracic nor lumbar tenderness Extremity Extremity Narrative: Right wrist-patient has some mild soft tissue swelling diffusely about the right wrist with tenderness diffusely over the distal radius and ulna. Neurovascular intact distally. Good range of motion flexion extension of all digits. She does have a ring on her right ring finger and this was removed. No pain at the elbow. General Extremety ED: Negative for edema General Extremity: Negative for edema Neuro oriented x3, CN's II-XII intact bilaterally, no sensory deficits noted and gait normal Sensorium / Orientation: awake, alert, oriented to person, oriented to place and oriented to time Motor Exam: strength 5/5 throughout and strength abnormal Psych mental status grossly normal Skin no rashes or lesions noted and no wounds MDM MDM MDM Narrative Medical decision making narrative: Patient presents with a fall and injury to the right wrist. Patient had x-rays of the wrist that showed a nondisplaced distal radius fracture that is intra- articular. Discussed case with orthopedic surgeon on-call Dr. Tello. I did place patient in an AP splint that was fabricated by myself with [employer]. Patient will follow-up with their office. She will be given a prescription for [place] for pain. She will be given a sling. She is instructed to ice and elevate the extremity. Radiography Diagnostic Testing: Three-view x-rays of the right wrist obtained interpreted by myself as fracture of the distal radius comminuted and intra-articular without significant displacement. Radiology in agreement. Discharge Plan Triage Chief Complaint: Upper Extremity Injury ED Provider: Kristi Pang Dx/Rx/DC Orders Clinical Impression: Closed fracture of right distal radius Instructions: Distal Radius Fx Prescriptions: New hydrocodone-acetaminophen 5-325 mg tablet 1 tab PO Q4H PRN PRN (Reason: Pain) 2 Days Qty: 10 0RF No Action simvastatin 40 mg tablet 40 mg PO .COMPLEX Patient Comments: 40 mg PO alternates 40mg, 20mg; Rx Instructions: 40 mg PO alternates 40mg, 20mg; lisinopril 2.5 mg tablet 2.5 mg PO DAILY levothyroxine 50 mcg tablet 50 mcg PO DAILY ergocalciferol (vitamin D2) 50,000 unit capsule 50,000 unit PO QMONTH multivitamin tablet 1 tab PO DAILY metformin 500 mg tablet 500 mg PO DAILY Primary Care Provider: Haydee Workman Referrals: Haydee Workman MD [Primary Care Provider] - Chano Tello DO [Med Staff - Active Staff] - 3-5 Days Print Language: Welsh Disposition Disposition: Home, Self Care
--- NOTE | 2023-10-16 13:35 | RAD_ITS ---
STUDY: X-RAY - RIGHT WRIST REASON FOR EXAM: Female, 68 years old. Pain and swelling following injury. TECHNIQUE: 3 view(s) of the wrist were obtained. COMPARISON: None. FINDINGS: Nondisplaced comminuted fracture through the distal radial metaphysis with extension to the articular surface. Avulsion fracture of the ulnar styloid. Normal radiocarpal articulation. Normal distal radioulnar articulation. Normal carpal bones. Normal carpal articulations. There is degenerative arthrosis of the carpometacarpal articulation of the thumb. Normal second through fifth carpometacarpal articulations. Normal visualized metacarpal bones. Soft tissue swelling. RAD/Wrist min 3 Views IMPRESSION: Nondisplaced comminuted fracture of the distal radial metaphysis with extension to the articular surface. Avulsion fracture of the ulnar styloid. Soft tissue swelling. Electronically Signed: Hira Hoyt MD at 13:46 EDT ,
[2023-10-16] MEDS: HYDROcodone Bitartrate/Apap 5/325 Tablet PO (14:24)
== END 2023-10-16 14:28 | disposition home or self-care (01) ==
PROVIDERS: Emergency Provider Emergency Medicine; PCP Family Medicine; Visit Provider Emergency Medicine
DX: S52.571A Other intraarticular fracture of lower end of right radius, initial encounter for closed fracture (principal); E11.9 Type 2 diabetes mellitus without complications; W17.89XA Other fall from one level to another, initial encounter; E78.2 Mixed hyperlipidemia; E03.9 Hypothyroidism, unspecified; Z79.84 Long term (current) use of oral hypoglycemic drugs; Z79.890 Hormone replacement therapy; Z79.899 Other long term (current) drug therapy
CPT/HCPCS: 29125; 73110; 99283

== ENCOUNTER 2024-01-07 08:30 | Outpatient (RCR) | payer MEDICARE, SELFPAY ==
--- NOTE | 2023-12-02 09:17 | HP.OTEVAL ---
Patient's Visit Information Visit Information Visit Information: JONATHON LAW is a 68 year old F, referred to Occupational Therapy by Dr. James Valencia MD, with a diagnosis of R distal radius fx. Date of Evaluation: 11/30/23 Occupational Therapist: Luh Knox, CADY/Phoebe, CHT Subjective Subjective: this 68-year-old female arrives with dx of R distal end radius fx, pt fell off end of trailer October 15, was casted and out of cast for a week now (11/24/23). pt arrives wearing R wrist brace. pt wearing L hand/forearm prosthetic. pt demo limited ROM and strength R hand/wrist. exercises from doctor ulnar/radial dev, squeezing out sponge, pro/sup, wrist flex/ex. pt difficulty with cooking/cleaning, self care, opening jars/containers, yard work, groceries. lives with who is able to help if needed. Pain R wrist: Current Pain Intensity: 1 Pain Intensity Range: 2 Objective Objective/Observation: pt arrives wearing R wrist brace. pt wearing L hand/forearm prosthetic. ROM Wrist: R 20/15 ROM Comments: R radial dev 10* R ulnar dev 15* Strength Transportation Dispatcher: R 13# Lateral Pinch: R 5# Tripod Pinch: R 4# Sensation Sensation Comments: denies Quick DASH-Disab of Arm,Shoulder& Hand Quick DASH Score: 65.9075 Goals Goal:: pt to increase RUE strength in order to complete daily functional tasks. pt will increase R kitchen mechanic strength 20# or more to increase I in ADLs/IADLs. Goal:: pt to increase R wrist extension by 20* or more in order to complete self-care and other daily functional tasks pt to increase R wrist flexion by 30* or more in order to complete self-care and other daily functional tasks Goal:: pt will demo 100% adherence to joint protection principles by end of POC. Goal:: pt will report increase I in all ADLs/IADLs by end of POC. Goal:: pt will improve QuickDASH score by 40 points or more to maximize use of RUE. (65.90) Rehabilitation General Assessment: This 68-year-old female arrives with dx of R distal radius fx. pt demo limited RUE ROM and strength impacting pt ability to complete ADLs/IADLs, cooking, cleaning, yard work, opening jars, carrying groceries, etc. pt recommended to complete OT services 1x a week for 6 weeks. to address above impairments. Therapy session was directly supervised and doc. approved by Luh LAZAR/Phoebe,ARTURT. Rehabilitation Potential: Good Anticipated Interventions Anticipated Interventions: A/AAROM/PROM, Strengthening, Modalities, Orthoses, Joint Protection/Energy Conservation, Ergonomic Education, Education re assistive Equipment, Education re Diagnosis and Home Program Visit Plan Frequency: 1x/Week Duration: 6 Weeks General Plan: improve ROM increase strength use wrist/hand normally again TEXT: Thank you for the opportunity to evaluate your patient. For Medicare and Medicare HMO plans, please review the plan of care and approve it. It will need to be FAXED BACK to us at [phone] for Medicare purposes. Please let me know if there are questions or concerns regarding this plan of care. Physician Signature: Date:
--- NOTE | 2024-01-07 12:32 | OTREVAL_ITS ---
Re-Evaluation Intro: Dr. James Valencia MD, It has been my pleasure to treat JONATHON LAW over the last 6 visits for R distal radius fx. Please see the progress note below for an update on the occupational therapy plan of care! Subjective Subjective: arrives doing well no new concerns. pt is 11 weeks and 6 days from sx Objective Objective/Function: Wrist 60/40 able to make full fist supination 70 degrees kelly machine operator strength 5# lateral pinch 5# tripod pinch 3# pt has progressed in ROM as well as strength reduction in pain and improved ability to utilize during all functional tasks Plan Plan Frequency: 1x/Week Duration: 6 Weeks Visits in this POC: (Insurance- No limit-Med Rani) 6 weeks (1x week) Plan: pt leaving on trip today was last scheduled visit however states she may decide to schedule more depending on how wrist is doing after vacation. to see Doctor in mean time. Goals Goals Patient Goals: Regain Strength, Decrease Pain, Decrease Swelling/Stiffness, Use Hand/Wrist/Arm Normally Again, Increase ROM, Be More Independent in ADLS, Resume Former Household Responsibilities (Cooking,Cleaning,Yard, etc.) and Resume Hobbies Goal:: pt to increase RUE strength in order to complete daily functional tasks. pt will increase R kelly machine operator strength 20# or more to increase I in ADLs/IADLs. R and L kelly machine operator 5# Ongoing Goal:: pt to increase R wrist extension by 20* or more in order to complete self-care and other daily functional tasks now 60 degrees pt to increase R wrist flexion by 30* or more in order to complete self-care and other daily functional tasks now 40 degrees Goal:: pt will demo 100% adherence to joint protection principles by end of POC. GOAL MET Goal:: pt will report increase I in all ADLs/IADLs by end of POC. assist for bathing otherwise able to complete ed on adaptive larger soap bar Goal:: pt will improve QuickDASH score by 40 points or more to maximize use of RUE. (65.90) now 38.63 Anticipated Interventions Anticipated Interventions Anticipated Interventions: A/AAROM/PROM, Strengthening, Modalities, Orthoses, Joint Protection/Energy Conservation, Ergonomic Education, Education re assistive Equipment, Education re Diagnosis and Home Program Re-Evaluation Ending Re-evaluation ending: Please do not hesitate to contact me at [phone] by phone or if you have questions or concerns regarding this new plan of care! Sincerely, Janice Canales
== END 2024-01-07 19:00 | disposition home or self-care (01) ==
LOC: OT 08:30
PROVIDERS: PCP Family Medicine; Referring Provider Orthopaedic Surgery; Visit Provider Orthopaedic Surgery
DX: S52.551A Other extraarticular fracture of lower end of right radius, initial encounter for closed fracture (principal)
CPT/HCPCS: 97110; 97140; 97165

== ENCOUNTER → 2024-02-18 | Outpatient (CLI) | payer MEDICARE, SELFPAY ==
--- NOTE | 2024-02-18 13:47 | BD_ITS ---
STUDY: DUAL ENERGY X-RAY ABSORPTIOMETRY / DXA REASON FOR EXAM: Female, 68 years old. 733.00OsteoporosisBONE DENSITY REASON FOR EXAM TECHNIQUE: Bone Mineral Density (BMD) measurements of lumbar spine and bilateral hips were obtained. COMPARISON: Comparison is made with prior study February 11, 2018. FINDINGS: Lumbar Spine (L1-L4): g/cm2 (1.017) / T-score (-0.3) / Z-score (1.6) Findings are suggestive of normal bone density with a low fracture risk. Left Femur Total: g/cm2 (0.849) / T-score (-0.8) / Z-score (0.6) Left Femoral Neck: g/cm2 (0.702) / T-score (-1.3) / Z-score (0.3) Right Femur Total: g/cm2 (0.800) / T-score (-1.2) / Z-score (0.2) Right Femoral Neck: g/cm2 (0.720) / T-score (-1.2) / Z-score (0.4) The T-Scores on the most recent prior examination were: Lumbar Spine (L1-L4): There has been worsening of bone density since the previous examination. Left Femur Total: which represents a worsening of 1.1%. Right Femur Total: which represents a worsening of 4.5%. BD/Dexa Bone Density Study IMPRESSION: The patient is considered osteopenic as outlined below according to World Drew Organization (WHO) criteria with a low fracture risk. There has been worsening of bone density since the previous examination. Reference Information: The T-score is the number of standard deviations above or below the standard which is normal for young adults at their peak bone mineral density. The World Health Organization (WHO) interprets the T-scores as follows: Above -1 Normal bone density Between -1 and -2.5 Osteopenia Equal to / or below -2.5 Osteoporosis As a practical clinical guideline, osteopenia may be graded as follows: Mild -1 through -1.5 Moderate -1.6 through -2.0 Severe -2.1 through -2.4 The Z-score is the number of standard deviations above or below age-matched controls. A Z-score of less than -1.5 would be considered abnormal. References: 1. NIH Osteoporosis and Related Bone Diseases www osteo.org 2. International Society for Clinical Densitometry www iscd.org 3. National Osteoporosis Foundation www nof.org Electronically Signed: Hira Hoyt MD at 15:27 EST ,
== END | disposition home or self-care (01) ==
LOC: OPBD 13:46
PROVIDERS: PCP Family Medicine; Referring Provider Family Medicine; Visit Provider Family Medicine
DX: Z13.820 Encounter for screening for osteoporosis (principal); E55.9 Vitamin D deficiency, unspecified; M81.0 Age-related osteoporosis without current pathological fracture
CPT/HCPCS: 77080

== ENCOUNTER → 2024-11-10 | Outpatient (CLI) | payer MEDICARE, SELFPAY ==
--- OUTSIDE RECORDS SUMMARY | 2024-11-10 07:38 | XMS RPT_ITS | CCD ---
Author Organization [facility] Care Team Providers Care Vp Customer Service Name Role Phone Sprpoornima, Frankie Unavailable Unavailable Sprang, Frankie Unavailable Unavailable Unavailable Primary Care Provider Unavailabl e Gail, Frankie Jes Unavailable [phone] Sprpoornima, Frankie Jes Primary Care Provider Sprang, Frankie Unavailable Sprang, Frankie Primary Care Provider [phone] Unavailable Primary Care Provider Unavailabl e Unavailable Primary Care Provider Unavailrory e Jacinta Haydeelino Kapadia Primary Care Provider [phone] Frankie Arias CNP Primary Care Provider [phone] Haydee Workman MD Primary Care Provider Frankie Arias CNP Primary Care Provider Haydee Workman MD Primary Care Provider FRANKIE ARIAS Attending Unavailable SPRANG, FRANKIE JES Primary Care Unavailable SPRANG, FRANKIE JES Referring Unavailable SPRANG, FRANKIE JES Attending Unavailable SPRANG, FRANKIE JES Primary Care Unavailable Mijayeshel, Haydee Attending Unavailable Miedel, Haydee Primary Care Unavailable Miedel, Haydee Primary Care Unavailable Miedel, Haydee Attending Unavailable Miedel, Haydee Referring Unavailable Miedel, Haydee Primary Care Unavailable Kristi Pang Attending Unavailable Miedel, Haydee Primary Care Unavailable Uriahel, Haydee Attending Unavailable Roroedel, Haydee Referring Unavailable Miedel, Haydee Primary Care Unavailable James Valencia Attending Unavailable James Valencia Referring Unavailable Haydee Workman Primary Care Unavailable Haydee Workman Attending Unavailable Haydee Workman Referring Unavailable RACHAEL MCARTHUR Attending Unavailable HAYDEE WORKMAN Primary Care Unavailable RACHAEL MCARTHUR Attending Unavailable HAYDEE WORKMAN Primary Care Unavailable Allergies Allergy Classification Reported Allergen(s) Allergy Type Date of Onset Reaction(s) Facility (9 sources) Sulfonamides (Antibiotic); Translations: [SULFA (SULFONAMIDE ANTIBIOTICS)] Propensity to adverse reactions to drug 5 Rash [facility] Work Phone: (8 sources) TETANUS VACCINES AND TOXOID; Translations: [TETANUS VACCINES AND TOXOID] Propensity to adverse reactions to drug 5 swelling, pain [facility] Work Phone: (15 sources) Sulfonamides (Antibiotic) Drug Allergy 5 Hives [facility] (11 sources) Tetanus vaccine; Translations: [TETANUS TOXOID] Drug Allergy 8 Other: See Comments [facility] (5 sources) Tetanus Vaccines And Toxoid Propensity to adverse reactions to drug 5 [facility] (1 source) Sulfonamides (Antibiotic) Drug allergy (disorder) 4 [facility] (1 source) Tetanus Vaccines and Toxoid Drug allergy (disorder) 4 [facility] Medications Current Medications Medication Drug Class(es) Dates Sig (Normalized) Sig (Original) amoxicillin 875 mg / clavulanate 125 mg oral tablet (3 sources) Penicillin-class Antibacterial Start: 10-17-2021 End: 10-27-2021 take 1 tablet by mouth twice daily amoxicillin-clavula marek acid (AUGMENTIN) 875-125 mg per tablet Take 1 tablet by mouth twice daily for 10 days. 20 tablet 0 10/17/2021 10/27/2021 Active Comment on above: Take 1 tablet by michael twice daily for 10 days. cephalexin 500 mg oral capsule (1 source) Cephalosporin Antibacterial Start: 01-28-2022 End: 02-04-2022 take 1 capsule by mouth twice daily cephALEXin (KEFLEX) 500 mg capsule Take 1 capsule by mouth twice daily for 7 days. 14 capsule 0 01/28/2022 02/04/2022 Active Comment on above: Take 1 capsule by [facility] twice daily for 7 days. ergocalciferol 1.25 mg oral capsule (8 sources) Provitamin D2 Compound Start: 07-01-2018 take 85401 [IU] by mouth every month Ergocalciferol (Vitamin D2) Active 44331 UNIT PO EVERY MONTH July 01, 2018 1:54pm Start: 12-21-2014 End: 04-08-2023 ergocalciferol (ERGOCALCIFER OL) 50,000 unit capsule Take by mouth every 30 (thirty) days. 0 12/21/2014 04/08/2023 Discontinued (Patient's Request) ergocalciferol, vitamin D2, (VITAMIN D2 ORAL) (10 sources) ergocalciferol, vitamin D2, (VITAMIN D2 ORAL) Take by mouth. Active ergocalciferol, vitamin D2, (VITAMIN D2 ORAL) Take by mouth. 0 Active Comment on above: Take by mouth. erythromycin 0.005 mg/mg ophthalmic ointment (9 sources) Macrolide, Macrolide Antimicrobial Start: 12-21-2014 erythromycin 0.5% (ROMYCIN) ophthalmic ointment Apply to eye at bedtime. 12/21/2014 Active estradiol 0.1 mg/ml vaginal cream (9 sources) Estrogen Start: 06-14-2024 End: 10-10-2024 estradioL (ESTRACE) 0.01 % (0.1 mg/gram) vaginal cream Indications: Atrophic vaginitis INSERT 1 GRAM VAGINALLY TWICE A WEEK 43 g 10/10/2024 Active Start: 02-24-2022 End: 04-21-2025 estradioL (ESTRACE) 0.01 % ( 0.1 mg/gram) vaginal cream Indications: Atrophic vaginitis Insert 1 (one) g into the vagina twice weekly Start: 04/21/24. 42.5 g 2 04/21/2024 06/14/2024 Discontinued FA/mv,Ca,iron,min/lycopene/l ut (MULTIVITAL ORAL) (10 sources) FA/mv,Ca,iron,mi n/lycopene/lut (MULTIVITAL ORAL) Take by mouth. Active FA/mv,Ca,iron,mi n/lycopene/lut (MULTIVITAL ORAL) Take by mouth. 0 Active Comment on above: Take by mouth. fluticasone propionate 0.05 mg/actuat metered dose nasal spray (19 sources) Corticosteroid Start: 01-03-20 18 take 2 spray(s) by mouth once daily fluticasone (FLONASE) 50 mcg/actuation nasal spray Use 2 Sprays in each nostril once daily. Rinse mouth after use. 11.1 mL 10/17/2021 Active Comment on above: Use 2 Sprays in each nostril once daily. Rinse mouth after use. levothyroxine sodium 0.05 mg oral tablet (20 sources) l-Thyroxine Start: 01-01-20 15 levothyroxine (SYNTHROID, LEVOTHROID) 50 MCG tablet Take by mouth daily. 12/31/2014 Active Levothyroxine 50 mcg cap Take by mouth. Active Comment on above: Take by mouth. lisinopril 2.5 mg oral tablet (12 sources) Angiotensin Converting Enzyme Inhibitor Start: 07-01-2018 take 2.5 mg by mouth once daily Lisinopril Active 2.5 MG PO DAILY July 01, 2018 1:54pm LISINOPRIL ORAL Take by mouth. Active LISINOPRIL ORAL Take by mouth. 0 Active Comment on above: Take by mouth. metFORMIN hydrochloride 500 mg oral tablet (20 sources) Biguanide Start: 06-28-2018 End: 07-01-2018 take 500 mg by mouth twice daily Metformin Discontinued 500 MG PO TWICE A DAY June 28, 2018 8:28am July 01, 2018 1:55pm Start: 11-21-2014 metFORMIN (GLU COPHAGE) 500 MG tablet Take by mouth daily. 11/21/2014 Active metformin HCl (M ETFORMIN ORAL) Take by mouth. Active metformin HCl (M ETFORMIN ORAL) Take by mouth. 0 Active Comment on above: Take by mouth. multivitamin per tablet (4 sources) take 1 tablet by mouth once daily multivitamin per tablet Take 1 (one) tablet by mouth daily . Active take 1 tablet by mouth once kim y multivitamin per tablet Take 1 (one) tablet by mouth daily . 0 Active Multivitamin preparation (2 sources) Start: 07-01-2018 take 1 tablet by mouth once daily Multivitamin Active 1 TABLET PO DAILY July 01, 2018 1:55pm Start: 07-01-2018 take 1 tablet by [facility] once daily Multivitamin Active 1 TABLET PO DAILY July 01, 2018 12:00am phenazopyridine hydrochloride 100 mg oral tablet (1 source) Start: 01-28-2022 End: 01-30-2022 take 2 tablets by mouth every eight hours as needed phenazopyridine (PYRIDIUM) 100 mg tablet Take 2 tablets by mouth three times daily as needed for up to 2 days. 6 tablet 0 01/28/2022 01/30/2022 Active Comment on above: Take 2 tablets by mo uth three times daily as needed for up to 2 days. predniSONE 10 mg oral tablet (9 sources) Start: 10-17-2021 predniSONE (DELTASONE) 10 mg tablet Take 4 tabs daily for 3 days, then 2 tabs daily for 3 days, then 1 tab daily for 3 days with food. 21 tablet 10/17/2021 Active Comment on above: Take 4 tabs daily fo r 3 days, then 2 tabs daily for 3 days, then 1 tab daily for 3 days with food. simvastatin 40 mg oral tablet (20 sources) HMG-CoA Reductase Inhibitor Start: 07-01-2018 Simvastatin Active 40 MG PO .COMPLEX July 01, 2018 1:53pm 40 mg PO alternates 40mg, 20mg; SIMVASTATIN ORAL Take by mouth. Active SIMVASTATIN ORAL Take by mouth. 0 Active take 1 tablet by mouth once at b edtime simvastatin (ZOCOR) 40 MG tablet Take 40 mg by mouth See Admin Instructions. Take 1 1/2 tablet once per bedtime 0 Active Comment on above: Take by mouth. Problems Active Problems Problem Classification Problem Date Documented Date Episodic/Chronic Diabetes mellitus without complication (3 sources) Type 2 diabetes mellitus; Translations: [Type 2 diabetes mellitus without complications] Onset: 10-02-2023 06-28-2018 Chronic Disorders of lipid metabolism (2 sources) Mixed hyperlipidemia; Translations: [Mixed hyperlipidemia] 06-28-2018 Chronic Genitourinary symptoms and ill-defined conditions (1 source) Urgent desire to urinate; Translations: [Urgency of urination] Episodic Menopausal disorders (8 sources) Atrophic vaginitis; Translations: [Postmenopausal atrophic vaginitis] Onset: 04-20-2024 Chronic Nonmalignant breast conditions (2 sources) Lump in right breast; Translations: [Breast mass, right] Onset: 01-19-2015 01-19-2015 Nonspecific chest pain (2 sources) Chest pain; Translations: [Chest pain, unspecified] 06-28-2018 Episodic Osteoporosis (1 source) Age-related osteoporosis without current pathological fracture; Translations: [Age-related osteoporosis without current pathological fracture] Onset: 10-16-2023 Chronic Other ear and sense organ disorders (16 sources) Sensorineural hearing loss, bilateral; Translations: [Sensorineural hearing loss, bilateral] Onset: 09-19-2020 Chronic Other nutritional; endocrine; and metabolic disorders (1 source) Body mass index 25-29 - overweight; Translations: [Overweight with body mass index (BMI) 25.0-29.9] Onset: 02-09-2019 02-09-2019 Chronic Other upper respiratory infections (1 source) Acute sinusitis; Translations: [Acute sinusitis, unspecified] Episodic Thyroid disorders (2 sources) Hypothyroidism; Translations: [Hypothyroidism, unspecified] 06-28-2018 Chronic Unclassified (1 source) Unspecified lump in the right breast, unspecified quadrant; Translations: [Breast mass, right] Onset: 01-19-2015 01-19-2015 Unclassified (1 source) Patient encounter status; Translations: [Breast screening, unspecified] Urinary tract infections (1 source) Acute lower urinary tract infection; Translations: [Urinary tract infection, site not specified] Episodic Past or Other Problems Problem Classification Problem Date Documented Da te Episodic/Chronic Nonmalignant breast conditions (6 sources) Breast lump; Translations: [Lump in right breast] Onset: 01-19-2015 01-19-2015 Episodic Other nutritional; endocrine; and metabolic disorders (5 sources) Body mass index 25-29 - overweight; Translations: [Overweight] Onset: 02-09-2019 02-09-2019 Episodic Other screening for suspected conditions (not mental disorders or infectious disease) (7 sources) Breast neoplasm screening status; Translations: [Cancer cervix screening status] Onset: 03-19-2024 Episodic Residual codes; unclassified (9 sources) Family history of malignant neoplasm of ovary; Translations: [Family history of malignant neoplasm of ovary] Onset: 01-19-2015 01-19-2015 Episodic Superficial injury; contusion (1 source) Unspecified superficial injury of right wrist, initial encounter; Translations: [Unspecified superficial injury of right wrist, initial encounter] Onset: 10-21-2023 Episodic Results Test Name Value Interpretation Reference Range Facility MM SCREENING DEO BILATERALo n 06-07-2024 MM SCREENING DEO BILATERAL EXAMINATION: MM SCREENING DEO BILATERAL 06/07/2024 Computer-assisted detection utilized in the interpretation of this exam. COMPARISON: Mammograms dated 04/28/2023 through 11/30/2014. FINDINGS: MLO and CC views of both breasts were obtained using 2D and 3D tomosynthesis techniques. There are scattered areas of fibroglandular density. No standout mass, suspicious calcification, or architectural distortion identified. IMPRESSION: No mammographic evidence of malignancy. BIRADS - CATEGORY 1 Negative, no evidence of malignancy. Normal interval follow-up is recommended in 12 months. OVERALL ASSESSMENT - NEGATIVE A letter of notification will be sent to the patient regarding the results. [facility], along with the National Comprehensive Cancer Network and the [employer] recommend annual screening mammograms for women age 40 and older. [facility]/ Workstation ID: [id number] Dictated by: CRISTOFER ROJAS on ThuJun 07, 2024 1:31:10 PM EST Transcribed by: ABEBA BEAN on ThuJun 07, 2024 1:38:38 PM EST Finalized by: CRISTOFER ROJAS on ThuJun 07, 2024 2:00:48 PM EST Normal [facility] Dexa Bone Density Studyon Dexa Bone Density Study [facility] Imaging Services [address] [place] [id number] Dexa Bone Density Study MR#: [id number] Acct: [id number] Name: JONATHON PENNINGTON Rep #: [id number] : 1955 F 68 From: Hira crane MD PCP: Dr. Haydee Workman MD Status: [facility] Study: Dexa Bone Density Study Date of Exam: 02/18/24 Exam# [id number] Ordering Dr: Haydee Workman MD [id number] STUDY: DUAL ENERGY X-RAY ABSORPTIOMETRY / DXA REASON FOR EXAM: Female, 68 years old. 733.00OsteoporosisBON E DENSITY REASON FOR EXAM TECHNIQUE: Bone Mineral Density (BMD) measurements of lumbar spine and bilateral hips were obtained. COMPARISON: Comparison is made with prior study February 11, 2018. FINDINGS: Lumbar Spine (L1-L4): g/cm2 (1.017) / T-score (-0.3) / Z-score (1.6) Findings are suggestive of normal bone density with a low fracture risk. Left Femur Total: g/cm2 (0.849) / T-score (-0.8) / Z-score (0.6) Left Femoral Neck: g/cm2 (0.702) / T-score (-1.3) / Z-score (0.3) Right Femur Total: g/cm2 (0.800) / T-score (-1.2) / Z-score (0.2) Right Femoral Neck: g/cm2 (0.720) / T-score (-1.2) / Z-score (0.4) The T-Scores on the most recent prior examination were: Lumbar Spine (L1-L4): There has been worsening of bone density since the previous examination. Left Femur Total: which represents a worsening of 1.1%. Right Femur Total: which represents a worsening of 4.5%. BD/Dexa Bone Density Study IMPRESSION: The patient is considered osteopenic as outlined below according to World Drew Organization (WHO) criteria with a low fracture risk. There has been worsening of bone density since the previous examination. Reference Information: The T-score is the number of standard deviations above or below the standard which is normal for young adults at their peak bone mineral density. The World Health Organization (WHO) interprets the T-scores as follows: Above -1 Normal bone density Between -1 and -2.5 Osteopenia Equal to / or below -2.5 Osteoporosis As a practical clinical guideline, osteopenia may be graded as follows: Mild -1 through -1.5 Moderate -1.6 through -2.0 Severe -2.1 through -2.4 The Z-score is the number of standard deviations above or below age-matched controls. A Z-score of less than -1.5 would be considered abnormal. References: 1. NIH Osteoporosis and Related Bone Diseases www osteo.org 2. International Society for Clinical Densitometry www iscd.org 3. National Osteoporosis Foundation www nof.org Electronically Signed: Hira Hoyt MD at 15:27 EST , CC: Dr. Haydee Workman MD Core Carrier[facility] (OT[facility]UDIE ) JONATHON PENNINGTON ([id number]) 1955 F Date Time Provider Department 02/15/24 4:30 PM RACHAEL MCARTHUR During your visit today, we recorded the following information about you: Rachael Mcarthur AUD 02/16/2024 9:48 PM Signed [facility] [place] [place] HEARING AID CHECK Name: Jonathon Aditi CCF#: [id number] Date of Service: 02/15/2024 Date of : 1955 Age: [age] year old DEVICE INFORMATION RIGHT: Phonak Audeo L90-RL SN: [id number] Earmold/Tubing/Receiv er/Dome: 1M/largeopen no retention line LEFT: Phonak Audeo L90-RL SN: [id number] Earmold/Tubing/Receiv er/Dome: 1M/small open no retention line MEDICAL DOCTOR MD: Life Adult Literacy Teacher SN: [id number] Replacement Adult Literacy Teacher Case Go: SN: [id number] Fitting Date: 01/27/2022 Repair Warranty Expiration Date: 04/06/2025 Loss/Damage Expiration Date: 04/06/2025 Fitting All Source Intelligence Technician: Cresencio Magallon CCC/Celine Wax Traps: CeruShield (disk) Retention: No Remote Support Activated: Yes Phone Connectivity: Yes Adelia Connectivity: Yes Patient came to the office to pickler helper wax traps and domes. FINANCIAL COMPONENT No charge-TIP RECOMMENDATIONS * Use of hearing device(s) during all waking hours except when activities preclude device safety. * Schedule a hearing aid check annually or sooner if concerns arise. * Return for re-evaluation as medically indicated or sooner if change is noted. Cresencio Magallon CCC-A Clinical and Senior Hearing Implant All Source Intelligence Technician Allergies As of Date: 02/15/2024 Noted Allergy Reaction SULFA (SULFONAMIDE ANTIBIOTICS) 01/02/2018 4 - Hives TETANUS TOXOID 01/02/2018 14 - Other: See Comments Comments: lump Date Reviewed: 01/28/2022 Reviewed by: Delfina Michel LPN - Fully Assessed Primary Visit Diagnosis:Sensorineur al hearing loss, bilateral [H90.3] Prescriptions as of 02/16/2024 - predniSONE (DELTASONE) 10 mg tablet Take 4 tabs daily for 3 days, then 2 tabs daily for 3 days, then 1 tab daily for 3 days with food. - fluticasone (FLONASE) 50 mcg/actuation nasal spray Use 2 Sprays in each nostril once daily. Rinse mouth after use. - metformin HCl (METFORMIN ORAL) Take by mouth. - SIMVASTATIN ORAL Take by mouth. - LISINOPRIL ORAL Take by mouth. - Levothyroxine 50 mcg cap Take by mouth. - ergocalciferol, vitamin D2, (VITAMIN D2 ORAL) Take by mouth. - FA/mv,Ca,iron,min/lyc opene/lut (MULTIVITAL ORAL) Take by mouth. - fluticasone (FLONASE) 50 mcg/actuation nasal spray Use 2 Sprays in each nostril once daily. Rinse mouth after use. Problem List As Of Date 02/15/2024 Noted Resolved Sensorineural hearing loss, bilateral [H90.3] 09/19/2020 Encounter Status:Closed by RACHAEL MCARTHUR on 02/16/[address] [facility] Re-Evalution OTon 01-07-2024 Re-Evalution OT [facility] Occupational Therapy [facility] [address] [place] [address] / REEVALUATION / MEDICARE RECERTIFICATION OCCUPATIONAL THERAPY MR#: [id number] Acct: [id number] Name: JONATHON PENNINGTON Rep #: [id number] : 1955 68 From: Janice Canales Referring Dr.: Dr. James Valencia MD Status: REG RCR [facility] Date: SELF PAY INSURANCE Re-Evaluation Intro: Dr. James aVlencia MD, It has been my pleasure to treat JONATHON PENNINGTON over the last 6 visits for R distal radius fx. Please see the progress note below for an update on the occupational therapy plan of care! Subjective Subjective: arrives doing well no new concerns. pt is 11 weeks and 6 days from sx Objective Objective/Function: Wrist 60/40 able to make full fist supination 70 degrees director of marketing strength 5# lateral pinch 5# tripod pinch 3# pt has progressed in ROM as well as strength reduction in pain and improved ability to utilize during all functional tasks Plan Plan Frequency: 1x/Week Duration: 6 Weeks Visits in this POC: (Insurance- No limit-Med Rani) 6 weeks (1x week) Plan: pt leaving on trip today was last scheduled visit however states she may decide to schedule more depending on how wrist is doing after vacation. to see Doctor in mean time. Goals Goals Patient Goals: Regain Strength, Decrease Pain, Decrease Swelling/Stiffness, Use Hand/Wrist/Arm Normally Again, Increase ROM, Be More Independent in ADLS, Resume Former Household Responsibilities (Cooking,Cleaning,Samuel d, etc.) and Resume Hobbies Goal:: pt to increase RUE strength in order to complete daily functional tasks. pt will increase R director of marketing strength 20# or more to increase I in ADLs/IADLs. R and L director of marketing 5# Ongoing Goal:: pt to increase R wrist extension by 20* or more in order to complete self-care and other daily functional tasks now 60 degrees pt to increase R wrist flexion by 30* or more in order to complete self-care and other daily functional tasks now 40 degrees Goal:: pt will demo 100% adherence to joint protection principles by end of POC. GOAL MET Goal:: pt will report increase I in all ADLs/IADLs by end of POC. assist for bathing otherwise able to complete ed on adaptive larger soap bar Goal:: pt will improve QuickDASH score by 40 points or more to maximize use of RUE. (65.90) now 38.63 Anticipated Interventions Anticipated Interventions Anticipated Interventions: A/AAROM/PROM, Strengthening, Modalities, Orthoses, Joint Protection/Energy Conservation, Ergonomic Education, Education re assistive Equipment, Education re Diagnosis and Home Program Re-Evaluation Ending Re-evaluation ending: Please do not hesitate to contact me at [phone] by phone or if you have questions or concerns regarding this new plan of care! Sincerely, Janice Canales 01/07/24 1235 CC: Dr. Haydee Workman MD; Dr. James Valencia MD CK Signed For Medicare only, by signing this I certify the plan of care. Physicians Signature Date Normal [facility] OT General Evaluationon 11-05 OT General Evaluation [facility] Occupational Therapy [facility] [place] [address] / REHABILITATION SERVICES INITIAL EVALUATION MR#: [id number] Acct: [id number] Name: JONATHON PENNINGTON Rep #: [id number] : 1955 68 From: Luh Knox OTR/L, CHT Referring Dr.: Dr. Jmaes Valencia MD Status: REG RCR Insurance: [facility] Date: SELF PAY INSURANCE Patient's Visit Information Visit Information Visit Information: JONATHON PENNINGTON is a 68 year old F, referred to Occupational Therapy by Dr. James Valencia MD, with a diagnosis of R distal radius fx. Date of Evaluation: 11/30/23 Occupational Therapist: Luh Knox, OTR/Phoebe, CHT Subjective Subjective: this 68-year-old female arrives with dx of R distal end radius fx, pt fell off end of trailer October 15, was casted and out of cast for a week now (11/24/23). pt arrives wearing R wrist brace. pt wearing L hand/forearm prosthetic. pt demo limited ROM and strength R hand/wrist. exercises from doctor ulnar/radial dev, squeezing out sponge, pro/sup, wrist flex/ex. pt difficulty with cooking/cleaning, self care, opening jars/containers, yard work, groceries. lives with who is able to help if needed. Pain R wrist: Current Pain Intensity: 1 Pain Intensity Range: 2 Objective Objective/Observation : pt arrives wearing R wrist brace. pt wearing L hand/forearm prosthetic. ROM Wrist: R 20/15 ROM Comments: R radial dev 10* R ulnar dev 15* Strength Supervisory Investigative Specialist: R 13# Lateral Pinch: R 5# Tripod Pinch: R 4# Sensation Sensation Comments: denies Quick DASH-Disab of Arm,Shoulder Hand Quick DASH Score: 65.9075 Goals Goal:: pt to increase RUE strength in order to complete daily functional tasks. pt will increase R director of marketing strength 20# or more to increase I in ADLs/IADLs. Goal:: pt to increase R wrist extension by 20* or more in order to complete self-care and other daily functional tasks pt to increase R wrist flexion by 30* or more in order to complete self-care and other daily functional tasks Goal:: pt will demo 100% adherence to joint protection principles by end of POC. Goal:: pt will report increase I in all ADLs/IADLs by end of POC. Goal:: pt will improve QuickDASH score by 40 points or more to maximize use of RUE. (65.90) Rehabilitation General Assessment: This 68-year-old female arrives with dx of R distal radius fx. pt demo limited RUE ROM and strength impacting pt ability to complete ADLs/IADLs, cooking, cleaning, yard work, opening jars, carrying groceries, etc. pt recommended to complete OT services 1x a week for 6 weeks. to address above impairments. Therapy session was directly supervised and doc. approved by Luh LAZAR/Phoebe,CHT. Rehabilitation Potential: Good Anticipated Interventions Anticipated Interventions: A/AAROM/PROM, Strengthening, Modalities, Orthoses, Joint Protection/Energy Conservation, Ergonomic Education, Education re assistive Equipment, Education re Diagnosis and Home Program Visit Plan Frequency: 1x/Week Duration: 6 Weeks General Plan: improve ROM increase strength use wrist/hand normally again TEXT: Thank you for the opportunity to evaluate your patient. For Medicare and Medicare HMO plans, please review the plan of care and approve it. It will need to be FAXED BACK to us at [phone] for Medicare purposes. Please let me know if there are questions or concerns regarding this plan of care. Physician Signature: Date : 12/02/23 0918 CC: Dr. Haydee Workman MD; Dr. James Valencia MD MK Signed For Medicare only, by signing this I certify the plan of care. Physicians Signature Date Normal [facility] Emergency Department Summary on 10-16-2023 Emergency Department Summary [facility] Medical Records Department [address] [place] [address] Emergency Department Summary 10/16/23 MR#: [id number] Acct: [id number] Name: JONATHON PENNINGTON Rep #: [id number] : 1955 68 From: Kristi Pang DO PCP: Dr. Haydee Workman MD Status:DEP ER Location: ED HPI History of Present Illness Chief Complaint: Upper Extremity Injury Detail of Chief Complaint: Right wrist injury Informant: patient Narrative Narrative: Patient presents the emergency department with complaint of injury to the right wrist. Patient states that she was on a flat trailer about 2 feet off the ground when she lost her balance and fell onto her right side injuring her right wrist and hip. She denies wrecking her head. No loss of consciousness. She denies neck pain. She denies chest pain or abdominal pain. She has been ambulatory since the fall. Patient is right-hand dominant. [facility] Medical History (Updated 10/16/23 @ 14:[address] Kristi Pang DO) Chest pain History of left heart catheterization (LHC) ( 12/29/07) Hypothyroidism Mixed hyperlipidemia Type 2 diabetes mellitus Home Medications ???Medication ???Instructions ???Recorded ???Last Taken ???Type ergocalciferol (vitamin D2) 1,250 50,000 unit PO QMONTH 07/01/18 Unknown History mcg (50,000 unit) capsule levothyroxine 50 mcg tablet 50 mcg PO DAILY 07/01/18 Unknown History lisinopril 2.5 mg tablet 2.5 mg PO DAILY 07/01/18 Unknown History metformin 500 mg tablet 500 mg PO DAILY 07/01/18 Unknown History multivitamin 1 tab PO DAILY 07/01/18 Unknown History simvastatin 40 mg tablet 40 mg PO .COMPLEX 07/01/18 Unknown History hydrocodone-acetamino phen 5-325mg 1 tab PO Q4H PRN PRN Pain 2 days 10/16/23 Unknown Rx 5mg-325mg #10 TABLETS Allergy/AdvReac Type Severity Reaction Status Date / Time Sulfa (Sulfonamide Allergy Severe Rash Verified 10/16/23 12:51 Antibiotics) Tetanus Vaccines and Toxoid Allergy Severe swelling, Verified 10/16/23 12:51 pain Family History Father CAD (coronary artery disease) Myocardial infarction Surgical History History of total hysterectomy History of cholecystectomy Social History (Updated 07/01/18 @ 14:[address] Tee Haskins MD) Smoking Status: Never smoker alcohol intake: current details: occasional substance use type: does not use ROS ROS ED Review of Systems ROS Unobtainable: other Constitutional Constitutional ED: Reports lethargy; Denies chills, fever(s), sweats or weight loss Eyes Eyes: Denies blurry vision, change in vision or diplopia ENT ENT ED: Denies rhinorrhea or sore throat Cardiovascular Cardiovascular: Denies chest pain, orthopnea or racing heartbeat Respiratory/Chest Respiratory/Chest: Denies cough, dyspnea, dyspnea on exertion, orthopnea or sputum Gastrointestinal Gastrointestinal: Denies abdominal pain, diarrhea, nausea or vomiting Genitourinary Genitourinary ED: Denies dysuria, hematuria or urinary frequency Musculoskeletal Musculoskeletal: Reports other Details: Right wrist injury/pain ; Denies arthralgias, back pain, myalgias or neck pain Integumentary Denies abscess, Abrasions or rash Neurologic Neurologic: Denies headache(s) or weakness Psychiatric Psychiatric: Denies anxiety, depression or suicidal thoughts Endocrine Endocrinology: Denies polydipsia, polyphagia or polyuria Hematologic/Lymphatic Hematologic/Lymphatic : Denies easy bleeding, easy bruising or lymphadenopathy Allergic/Immunologic Allergic/Immunologic ED: Denies mouth swelling, tongue swelling or urticaria EXAM Physical Exam Const Vital Signs: 10/16/23 12:49 Temperature 95.7 F L Temperature Source Temporal Pulse Rate 84 Respiratory Rate 14 Pulse Ox 100 Oxygen Delivery Method Room Air Positive well nourished and well developed General Appearance ED: well developed and NAD HEENT Reports TM's clear and moist mucous membranes normocephalic and atraumatic; Negative for trauma or tenderness Tympanic Membrane ED: Yes TM's clear Eyes PERRL and EOMs intact bilaterally General Eye ED: Negative for pale conjunctiva or scleral icterus Neck no lymphadenopathy, supple and no JVD General: Negative for tenderness Chest Wall inspection of chest normal and palpation of chest normal Chest: Negative for tenderness Resp normal respiratory effort and clear to auscultation bilaterally Effort and Inspection: Negative for respiratory distress or pain with movement Auscultation: Negative for rhonchi, wheezes or diminished lung sounds Cardio regular rate, regular rhythm, S1 normal heart sound, S2 normal heart sound and no murmurs Peripheral Pulses: pulses 2+ throughout GI normal to inspection, nondi (more content not included)... Normal [facility] Wrist min 3 Viewson 10-16-19 Wrist min 3 Views [facility] Imaging Services [address] [place], [place] [address] Wrist min 3 Views MR#: [id number] Acct: [id number] Name: JONATHON PENNINGTON Rep #: [id number] : 1955 F 68 From: Hira crane MD PCP: Dr. Haydee Workman MD Status: REG ER Study: Wrist min 3 Views Date of Exam: 10/16/23 Exam# [id number] Ordering Dr: Kristi Pang DO [id number] STUDY: X-RAY - RIGHT WRIST REASON FOR EXAM: Female, 68 years old. Pain and swelling following injury. TECHNIQUE: 3 view(s) of the wrist were obtained. COMPARISON: None. FINDINGS: Nondisplaced comminuted fracture through the distal radial metaphysis with extension to the articular surface. Avulsion fracture of the ulnar styloid. Normal radiocarpal articulation. Normal distal radioulnar articulation. Normal carpal bones. Normal carpal articulations. There is degenerative arthrosis of the carpometacarpal articulation of the thumb. Normal second through fifth carpometacarpal articulations. Normal visualized metacarpal bones. Soft tissue swelling. RAD/Wrist min 3 Views IMPRESSION: Nondisplaced comminuted fracture of the distal radial metaphysis with extension to the articular surface. Avulsion fracture of the ulnar styloid. Soft tissue swelling. Electronically Signed: Hira Hoyt MD at 13:46 EDT , CC: Dr. Haydee Workman MD; Dr. Kristi Pang DO Core Carrier: Signed Normal [facility] Comprehensive Metabolic Prof ilon 09-19-2023 Albumin [Mass/Vol] 3.9 g/dL Normal 3.2-5.0 [facility] Comment on above: Performed By: #### L 502.0250, L500.4050, L100.0100, L506.1000, L500.4100, L501.9520, L501.9985 #### [facility] [address] [place], [address] Albumin/Globulin [Mass ratio] 1.1 {ratio} Normal 0.9-2.4 [facility] Comment on above: Performed By: #### L 502.0250, L500.4050, L100.0100, L506.1000, L500.4100, L501.9520, L501.9985 #### [facility] [address] [place], [address] ALK P 92 U/L Normal 45-117 [facility] Comment on above: Performed By: #### L 502.0250, L500.4050, L100.0100, L506.1000, L500.4100, L501.9520, L501.9985 #### [facility] [address] [place], [address] ALT [Catalytic activity/Vol] 33 U/L Normal 13-56 [facility] Comment on above: Performed By: #### L 502.0250, L500.4050, L100.0100, L506.1000, L500.4100, L501.9520, L501.9985 #### [facility] [address] [place], [address] AST [Catalytic activity/Vol] 28 U/L Normal 15-37 [facility] Comment on above: Performed By: #### L 502.0250, L500.4050, L100.0100, L506.1000, L500.4100, L501.9520, L501.9985 #### [facility] [address] [place], [address] Bilirubin [Mass/Vol] 0.60 mg/dL Normal 0.20-1.00 [facility] Comment on above: Result Comment: For patients on eltrombopag therapy, use of Dimension [place] TBIL is not recommended. Performed By: #### L 502.0250, L500.4050, L100.0100, L506.1000, L500.4100, L501.9520, L501.9985 #### [facility] [address] [place], [address] BUN/CRE 24.4 RATIO High 10-20 [facility] Comment on above: Performed By: #### L 502.0250, L500.4050, L100.0100, L506.1000, L500.4100, L501.9520, L501.9985 #### [facility] [address] [place], [address] CA,Total 9.3 mg/dL Normal 8.5-10.1 [facility] Comment on above: Performed By: #### L 502.0250, L500.4050, L100.0100, L506.1000, L500.4100, L501.9520, L501.9985 #### [facility] [address] [place], [address] Chloride [Moles/Vol] 105 mmol/L Normal 98-107 [facility] Comment on above: Performed By: #### L 502.0250, L500.4050, L100.0100, L506.1000, L500.4100, L501.9520, L501.9985 #### [facility] [address] [place], [address] CO2 [Moles/Vol] 27.0 mmol/L Normal 21.0-32.0 [facility] Comment on above: Performed By: #### L 502.0250, L500.4050, L100.0100, L506.1000, L500.4100, L501.9520, L501.9985 #### [facility] [address] [place], [address] Creatinine [Mass/Vol] 0.74 mg/dL Normal 0.55-1.02 [facility] Comment on above: Result Comment: The validity of the calculated GFR GFRAA in patients over 70 years has not been determined. Clinical correlation is essential. Performed By: #### L 502.0250, L500.4050, L100.0100, L506.1000, L500.4100, L501.9520, L501.9985 #### [facility] [address] [place], [address] EST GFR - AA 101 mL/min Normal >60 [facility] Comment on above: Result Comment: Afri can German GFR Calc Performed By: #### L 502.0250, L500.4050, L100.0100, L506.1000, L500.4100, L501.9520, L501.9985 #### [facility] [address] [place], [place], [id number] (375) GAP 6 Normal 5-15 [facility] Comment on above: Performed By: #### L 502.0250, L500.4050, L100.0100, L506.1000, L500.4100, L501.9520, L501.9985 #### [facility] [address] [place], [address] GFR/1.73 sq M.predicted among non-blacks MDRD (S/P/Bld) [Vol rate/Area] 84 mL/min/{1.73_m2} Normal >60 [facility] Comment on above: Result Comment: Non- GFR Calc Performed By: #### L 502.0250, L500.4050, L100.0100, L506.1000, L500.4100, L501.9520, L501.9985 #### [facility] [address] [place], [address] Globulin (S) [Mass/Vol] 3.5 g/dL Normal 2.2-4.[address] [facility] Comment on above: Performed By: #### L 502.0250, L500.4050, L100.0100, L506.1000, L500.4100, L501.9520, L501.9985 #### [facility] [address] [place], [address] Glucose [Mass/Vol] 167 mg/dL High 74-106 [facility] Comment on above: Result Comment: Fast ing Glucose result greater than or equal to 126 mg/dL suggests DIABETES MELLITUS per A.D.A. criteria. Performed By: #### L 502.0250, L500.4050, L100.0100, L506.1000, L500.4100, L501.9520, L501.9985 #### [facility] [address] [place], [address] Potassium [Moles/Vol] 4.3 mmol/L Normal 3.5-5.1 [facility] Comment on above: Performed By: #### L 502.0250, L500.4050, L100.0100, L506.1000, L500.4100, L501.9520, L501.9985 #### [facility] [address] [place], [address] Sodium [Moles/Vol] 138 mmol/L Normal 136-145 [facility] Comment on above: Performed By: #### L 502.0250, L500.4050, L100.0100, L506.1000, L500.4100, L501.9520, L501.9985 #### [facility] [address] [place], [address] T PROT 7.4 g/dL Normal 6.4-8.2 [facility] Comment on above: Performed By: #### L 502.0250, L500.4050, L100.0100, L506.1000, L500.4100, L501.9520, L501.9985 #### [facility] [address] [place], [address] Urea nitrogen [Mass/Vol] 18 mg/dL Normal 7-18 [facility] Comment on above: Performed By: #### L 502.0250, L500.4050, L100.0100, L506.1000, L500.4100, L501.9520, L501.9985 #### [facility] [address] [place], [address] Lipid Profileon 09-19-2023 Cholesterol [Mass/Vol] 202 mg/dL High 200 [facility] Comment on above: Result Comment: <200 mg/dL Desirable 200-240 mg/dL Borderline >240 mg/dL High Risk Performed By: #### L 502.0250, L500.4050, L100.0100, L506.1000, L500.4100, L501.9520, L501.9985 #### [facility] [address] [place], [address] Cholesterol in HDL [Mass/Vol] 40 mg/dL Normal [facility] Comment on above: Result Comment: The drugs N-Acetylcysteine and Metamizole may falsely depress this assay. Reference Range HDL <40 mg/dL Low HDL Cholesterol HDL >or= 60 mg/dL High HDL Cholesterol Performed By: #### L 502.0250, L500.4050, L100.0100, L506.1000, L500.4100, L501.9520, L501.9985 #### [facility] [address] [place], [address] Cholesterol in LDL [Mass/Vol] 108 mg/dL Normal 0-130 [facility] Comment on above: Performed By: #### L 502.0250, L500.4050, L100.0100, L506.1000, L500.4100, L501.9520, L501.9985 #### [facility] [address] [place], [address] Cholesterol in VLDL [Mass/Vol] 54 mg/dL High 5-40 [facility] Comment on above: Performed By: #### L 502.0250, L500.4050, L100.0100, L506.1000, L500.4100, L501.9520, L501.9985 #### [facility] [address] [place], [address] Triglyceride [Mass/Vol] 270 mg/dL High W [facility] Comment on above: Result Comment: The drugs N-Acetylcysteine and Metamizole may falsely depress this assay. Serum Triglycerides Reference Interval Normal <150 mg/dL Borderline high 150 - 199 mg/dL High 200 - 499 mg/dL Very High > or = 500 mg/dL Performed By: #### L 502.0250, L500.4050, L100.0100, L506.1000, L500.4100, L501.9520, L501.9985 #### [facility] [address] [place], [place], [id number] Thyroid Stim Hormone (TSH)on 09-19-2023 TSH 1.98 uIU/mL Normal 0.358-3.74 [facility] Comment on above: Performed By: #### L 502.0250, L500.4050, L100.0100, L506.1000, L500.4100, L501.9520, L501.9985 #### [facility] [address] [place], [address] CBC W/Diff, Automatedon 09-04 Absolute Lymph 2.19 X10 3/uL Normal 0.83-4.51 [facility] Comment on above: Performed By: #### L 502.0250, L500.4050, L100.0100, L506.1000, L500.4100, L501.9520, L501.9985 #### [facility] [address] [place], [address] Absolute Neut 3.5 X10 3/uL Normal 2.0-7.7 [facility] Comment on above: Performed By: #### L 502.0250, L500.4050, L100.0100, L506.1000, L500.4100, L501.9520, L501.9985 #### [facility] [address] [place], [address] Basophils/100 WBC (Bld) 1.1 % High 0-[address] [facility] Comment on above: Performed By: #### L 502.0250, L500.4050, L100.0100, L506.1000, L500.4100, L501.9520, L501.9985 #### [facility] [address] [place], [address] Eosinophils/100 WBC (Bld) 1.4 % Normal 0-5 [facility] Comment on above: Performed By: #### L 502.0250, L500.4050, L100.0100, L506.1000, L500.4100, L501.9520, L501.9985 #### [facility] [address] [place], [address] Erythrocyte distribution width (RBC) [Ratio] 12.1 % Normal 11.6-14.6 [facility] Comment on above: Performed By: #### L 502.0250, L500.4050, L100.0100, L506.1000, L500.4100, L501.9520, L501.9985 #### [facility] [address] [place], [address] Hematocrit (Bld) [Volume fraction] 42.5 % Normal 37-47 [facility] Comment on above: Performed By: #### L 502.0250, L500.4050, L100.0100, L506.1000, L500.4100, L501.9520, L501.9985 #### [facility] [address] [place], [address] Hemoglobin (Bld) [Mass/Vol] 13.6 g/dL Normal 12.0-15.0 [facility] Comment on above: Performed By: #### L 502.0250, L500.4050, L100.0100, L506.1000, L500.4100, L501.9520, L501.9985 #### [facility] [address] [place], [address] IG% 0.300 Normal 0.0-0.9 [facility] Comment on above: Result Comment: IG% - Immature Granulocytes (promyelocytes, myelocytes and metamyelocytes) > 1% indicates that a LEFT SHIFT is Present. Performed By: #### L 502.0250, L500.4050, L100.0100, L506.1000, L500.4100, L501.9520, L501.9985 #### [facility] [address] [place], [address] Lymphocytes/100 WBC (Bld) 33.4 % Normal 19-41 [facility] Comment on above: Performed By: #### L 502.0250, L500.4050, L100.0100, L506.1000, L500.4100, L501.9520, L501.9985 #### [facility] [address] [place], [address] MCH (RBC) [Entitic mass] 30.1 pg Normal 27.0-32.0 [facility] Comment on above: Performed By: #### L 502.0250, L500.4050, L100.0100, L506.1000, L500.4100, L501.9520, L501.9985 #### [facility] [address] [place], [address] MCHC (RBC) [Mass/Vol] 32.0 g/dL Normal 32-36 [facility] Comment on above: Performed By: #### L 502.0250, L500.4050, L100.0100, L506.1000, L500.4100, L501.9520, L501.9985 #### [facility] [address], [address] MCV (RBC) [Entitic vol] 94.0 fL Normal 81-[address] [facility] Comment on above: Performed By: #### L 502.0250, L500.4050, L100.0100, L506.1000, L500.4100, L501.9520, L501.9985 #### [facility] [address] [place], [address] Monocytes/100 WBC (Bld) 10.4 % High 0-[address] [facility] Comment on above: Performed By: #### L 502.0250, L500.4050, L100.0100, L506.1000, L500.4100, L501.9520, L501.9985 #### [facility] [address], [address] Neutrophils/100 WBC (Bld) 53.4 % Normal 47-70 [facility] Comment on above: Performed By: #### L 502.0250, L500.4050, L100.0100, L506.1000, L500.4100, L501.9520, L501.9985 #### [facility] [address] [place], [address] Nucleated RBC (Bld) [#/Vol] 0 10*3/uL Normal 0-5 [facility] Comment on above: Performed By: #### L 502.0250, L500.4050, L100.0100, L506.1000, L500.4100, L501.9520, L501.9985 #### [facility] [address] [place], [address] Platelet mean volume (Bld) [Entitic vol] 10.0 fL Normal 6.2-12.0 [facility] Comment on above: Performed By: #### L 502.0250, L500.4050, L100.0100, L506.1000, L500.4100, L501.9520, L501.9985 #### [facility] [address] [place], [address] Platelets (Bld) [#/Vol] 311 10*3/uL Normal 150-450 [facility] Comment on above: Performed By: #### L 502.0250, L500.4050, L100.0100, L506.1000, L500.4100, L501.9520, L501.9985 #### [facility] [address] [place], [address] RBC (Bld) [#/Vol] 4.52 10*6/uL Normal 4.2-5.4 [facility] Comment on above: Performed By: #### L 502.0250, L500.4050, L100.0100, L506.1000, L500.4100, L501.9520, L501.9985 #### [facility] [address] [place], [address] RDW SD 41.5 fl Normal 35.1-43.9 [facility] Comment on above: Performed By: #### L 502.0250, L500.4050, L100.0100, L506.1000, L500.4100, L501.9520, L501.9985 #### [facility] [address] [place], [address] WBC (Bld) [#/Vol] 6.6 10*3/uL Normal 4.4-11.0 [facility] Comment on above: Performed By: #### L 502.0250, L500.4050, L100.0100, L506.1000, L500.4100, L501.9520, L501.9985 #### [facility] [address] [place], [address] Hemoglobin A1con 09-18-2023 HbA1c (Bld) [Mass fraction] 7.1 % High 3.8-5.6 [facility] Comment on above: Result Comment: Norm al < 5.7 % Prediabetic 5.7 - 6.4 % Diabetic >or= 6.5 % Please note range changes. Performed By: #### L 502.0250, L500.4050, L100.0100, L506.1000, L500.4100, L501.9520, L501.9985 #### [facility] [address] [place], [address] Microalb:Creat Ratio,Random URon 09-18-2023 Creatinine [Mass/Vol] 156.00 mg/dL Normal NO RANGE EST . [facility] Comment on above: Performed By: #### L 502.0250, L500.4050, L100.0100, L506.1000, L500.4100, L501.9520, L501.9985 #### [facility] [address] [place], [address] MALB:CRE 15.8 mg/g CRE Normal <30 mg/g CRE [facility] Comment on above: Performed By: #### L 502.0250, L500.4050, L100.0100, L506.1000, L500.4100, L501.9520, L501.9985 #### [facility] [address] [place], [address] MICROALBUMIN,UR 24.7 mg/L Normal NO RANGE EST. [facility] Comment on above: Performed By: #### L 502.0250, L500.4050, L100.0100, L506.1000, L500.4100, L501.9520, L501.9985 #### [facility] [address] [place], [address] Vitamin D,25 Hydroxyon 09-17 Vitamin D 25-OH 45.5 ng/mL Normal [facility] Comment on above: Result Comment: Peggy min D 25(OH) Status Range Deficiency <20 ng/mL (50nmol/L) Insufficiency 20 - 30 ng/mL (50 - 75 nmol/L) Sufficiency 30 - 100 ng/mL (75 - 250 nmol/L) Toxicity >100 ng/mL (>250 nmol/L) Performed By: #### L 502.0250, L500.4050, L100.0100, L506.1000, L500.4100, L501.9520, L501.9985 #### [facility] [address] [place], [place], [id number] Absolute lymphocyte countOrd ered By: Dr. Workman on 08-27-2022 Lymphocytes Auto (Unsp spec) [#/Vol] 1.59 10*3/uL 0.83-4.51 [facility] Basophil percentageOrdered B y: Dr. Workman on 08-27-2022 Basophils/100 WBC (Bld) 1.2 % 0-1 [facility] Bilirubin [Mass/Vol] 0.30 mg/dL 0.20-1.00 [facility] Comment on above: For patients on eltr ombopag therapy, use of Dimension [place] TBIL is not recommended. Chloride [Moles/Vol] 108 mmol/L 98-107 [facility] Cholesterol [Mass/Vol] 207 mg/dL <200 [facility] Comment on above: <200 mg/dL Desirable 200-240 mg/dL Borderline >240 mg/dL High Risk Eosinophils/100 WBC (Bld) 1.8 % 0-5 [facility] Glucose [Mass/Vol] 142 mg/dL 74-106 [facility] Comment on above: Fasting Glucose resu lt greater than or equal to 126 mg/dL suggests DIABETES MELLITUS per A.D.A. criteria. Neutrophils (Bld) [#/Vol] 2.6 10*3/uL 2.0-7.7 [facility] Neutrophils/100 WBC (Bld) 52.6 % 47-70 [facility] Potassium [Moles/Vol] 4.3 mmol/L 3.5-5.1 [facility] Protein [Mass/Vol] 6.9 g/dL 6.4-8.2 [facility] Sodium [Moles/Vol] 141 mmol/L 136-145 [facility] Triglyceride [Mass/Vol] 286 mg/dL <[address] [facility] Comment on above: The drugs N-Acetylcy steine and Metamizole may falsely depress this assay.Serum Triglycerides Reference Interval Normal <150 mg/dL Borderline high 150 - 199 mg/dL High 200 - 499 mg/dL Very High > or = 500 mg/dL WBC (Bld) [#/Vol] 5.0 10*3/uL 4.4-11.0 [facility] Blood erythrocytes count (nu mber/volume)Ordered By: Dr. Workman on 08-27-2022 RBC (Bld) [#/Vol] 4.48 10*6/uL 4.2-5.4 [facility] Blood hemoglobin measurement (mass/volume)Ordered By: Dr. Workman on 08-27-2022 Hemoglobin (Bld) [Mass/Vol] 13.9 g/dL 12.0-15.0 [facility] Blood lymphocytes/100 leukoc ytesOrdered By: Dr. Workman on 08-27-2022 Lymphocytes/100 WBC (Bld) 32.1 % 19-41 [facility] Blood monocytes/100 leukocyt esOrdered By: Dr. Workman on 08-27-2022 Monocytes/100 WBC (Bld) 11.7 % 0-[address] [facility] Blood platelet mean volumeOr dered By: Dr. Workman on 08-27-2022 Platelet mean volume (Bld) [Entitic vol] 9.5 fL 6.2-12.0 [facility] Determination of erythrocyte mean corpuscular volume (MCV)Ordered By: Dr. Workman on 08-27-2022 MCV (RBC) [Entitic vol] 94.0 fL 81-[address] [facility] Hematocrit Auto (Bld) [Volum e fraction]Ordered By: Dr. Workman on 08-27-2022 Hematocrit (Bld) [Volume fraction] 42.1 % 37-47 [facility] Laboratory - Chemistry and C hemistry - challengeOrdered By: Dr. Workman on 08-27-2022 ALP [Catalytic activity/Vol] 91 U/L 45-117 [facility] ALT [Catalytic activity/Vol] 37 U/L 13-56 [facility] CO2 [Moles/Vol] 27.0 mmol/L 21.0-32.0 [facility] Globulin (S) [Mass/Vol] 3.3 g/dL 2.2-4.[address] [facility] Urea nitrogen/Creatinine [Mass ratio] 22.6 mg/mg 10-20 [facility] Laboratory - Hematology and Cell countsOrdered By: Dr. Workman on 08-27-2022 Erythrocyte distribution width (RBC) [Entitic vol] 42.6 fL 35.1-43.9 [facility] Erythrocyte distribution width (RBC) [Ratio] 12.2 % 11.6-14.6 [facility] Immature granulocytes/100 WBC (Bld) 0.600 % 0.0-0.9 [facility] Comment on above: IG% - Immature Granu locytes (promyelocytes, myelocytes and metamyelocytes) > 1% indicates that a LEFT SHIFT is Present. MCH (RBC) [Entitic mass] 31.0 pg 27.0-32.0 [facility] Nucleated RBC/100 WBC (Bld) [Ratio] 0 % 0-5 [facility] MCHC Auto (RBC) [Mass/Vol]Or dered By: Dr. Workman on 08-27-2022 MCHC (RBC) [Mass/Vol] 33.0 g/dL 32-36 [facility] No Panel InformationOrdered By: Dr. Workman on 08-27-2022 Estimated GFR (MDRD) Amer 115 mL/min >60 [facility] Comment on above: GFR Calc Estimated GFR (MDRD) Non-Af Amer 95 mL/min >60 [facility] Comment on above: Non- GFR Calc Thyroid Stimulating Hormone (TSH) 3.55 uIU/mL 0.358-3.74 [facility] Urine Microalbumin/Creatinine Ratio 8.0 mg/g CRE <30 [facility] Vitamin D 25-Hydroxy 49.9 ng/mL [facility] Comment on above: Vitamin D 25(OH) Sta tus Range Deficiency <20 ng/mL (50nmol/L) Insufficiency 20 - 30 ng/mL (50 - 75 nmol/L) Sufficiency 30 - 100 ng/mL (75 - 250 nmol/L) Toxicity >100 ng/mL (>250 nmol/L) Platelets bldOrdered By: Dr. Workman on 08-27-2022 Platelets (Bld) [#/Vol] 258 10*3/uL 150-450 [facility] Serum or plasma albumin thomas urement (mass/volume)Ordered By: Dr. Workman on 08-27-2022 Albumin [Mass/Vol] 3.6 g/dL 3.2-5.0 [facility] Serum or plasma albumin/glob ulin mass ratioOrdered By: Dr. Workman on 08-27-2022 Albumin/Globulin [Mass ratio] 1.1 {ratio} 0.9-2.4 [facility] Serum or plasma calcium thomas urement (mass/volume)Ordered By: Dr. Workman on 08-27-2022 Calcium [Mass/Vol] 8.9 mg/dL 8.5-10.1 [facility] Serum or plasma cholesterol in HDL measurement (mass/volume)Ordered By: Dr. Workman on 08-27-2022 Cholesterol in HDL [Mass/Vol] 42 mg/dL >40 [facility] Comment on above: The drugs N-Acetylcy steine and Metamizole may falsely depress this assay. Reference Range HDL <40 mg/dL Low HDL Cholesterol HDL >or= 60 mg/dL High HDL Cholesterol Serum or plasma cholesterol in VLDL measurement (mass/volume)Ordered By: Dr. Workman on 08-27-2022 Cholesterol in VLDL [Mass/Vol] 57 mg/dL 5-40 [facility] Serum or plasma creatinine m easurement (mass/volume)Ordered By: Dr. Workman on 08-27-2022 Creatinine [Mass/Vol] 0.66 mg/dL 0.55-1.02 [facility] Comment on above: The validity of the calculated GFR & GFRAA in patients over 70 years has not been determined. Clinical correlation is essential. Serum or plasma low density lipoprotein (LDL) cholesterol measurement (mass/volume)Ordered By: Dr. Workman on 08-27-2022 Cholesterol in LDL [Mass/Vol] 108 mg/dL 0-130 [facility] Serum or plasma urea nitroge n measurement (mass/volume)Ordered By: Dr. Workman on 08-27-2022 Urea nitrogen [Mass/Vol] 15 mg/dL 7-18 [facility] Thin prep Papanicolaou smear with manual screeningOrdered By: Dr. Workman on 08-27-2022 Thin prep Papanicolaou smear with manual screening 24 U/L 15-37 [facility] Thin prep Papanicolaou smear with manual screening 6 5-15 [facility] Thin prep Papanicolaou smear with manual screening 5.6 mg/L NO RANGE EST. [facility] Urine creatinine measurement (mass/volume)Ordered By: Dr. Workman on 08-27-2022 Creatinine (U) [Mass/Vol] 69.60 mg/dL NO RANGE EST. [facility] Whole blood hemoglobin A1c/t otal hemoglobin ratio (mass fraction)Ordered By: Dr. Workman on 08-27-2022 HbA1c (Bld) [Mass fraction] 6.9 % 3.8-5.6 [facility] Comment on above: Normal < 5.7 % Predi abetic 5.7 - 6.4 % Diabetic >or= 6.5 % Please note range changes. UA DIP, URINE (POC)on 2021 BILIRUBIN UA (POCT) Negative Negative [facility] CLARITY UA (POCT) Cloudy [facility] COLOR UA (POCT) Dark yellow [facility] GLUCOSE UA (POCT) Negative Negative mg/dL [facility] HEMOGLOBIN/BLOOD UA (POCT) Large Abnormal Negative [facility] KETONE UA (POCT) Negative Negative mg/dL [facility] LEUKOCYTES UA (POCT) Moderate Abnormal Negative [facility] NITRITE UA (POCT) Negative Negative [facility] PH UA (POCT) 5.5 4.5 - 8.0 [facility] Protein Ql (U) 100 mg/dL Abnormal Negative mg/dL [facility] SPECIFIC GRAVITY UA (POCT) 1.015 1.005 - 1.030 [facility] UROBILINOGEN UA (POCT) 0.2 E.U./dL Suni l E.U./dL [facility] Basophil percentageon 2021 Bilirubin [Mass/Vol] 0.40 mg/dL 0.20-1.00 [facility] Work Phone: Comment on above: For patients on eltr ombopag therapy, use of Dimension [place] TBIL is not recommended. Chloride [Moles/Vol] 108 mmol/L 98-107 [facility] Work Phone: Cholesterol [Mass/Vol] 201 mg/dL <200 [facility] Work Phone: Comment on above: <200 mg/dL Desirable 200-240 mg/dL Borderline >240 mg/dL High Risk Glucose [Mass/Vol] 131 mg/dL 74-106 [facility] Work Phone: Comment on above: Fasting Glucose resu lt greater than or equal to 126 mg/dL suggests DIABETES MELLITUS per A.D.A. criteria. Potassium [Moles/Vol] 4.5 mmol/L 3.5-5.1 [facility] Work Phone: Protein [Mass/Vol] 7.0 g/dL 6.4-8.2 [facility] Work Phone: Sodium [Moles/Vol] 140 mmol/L 136-145 [facility] Work Phone: Triglyceride [Mass/Vol] 225 mg/dL [facility] Work Phone: Comment on above: The drugs N-Acetylcy steine and Metamizole may falsely depress this assay.Serum Triglycerides Reference Interval Normal <150 mg/dL Borderline high 150 - 199 mg/dL High 200 - 499 mg/dL Very High > or = 500 mg/dL Laboratory - Chemistry and C hemistry - challengeon 09-14-2021 ALP [Catalytic activity/Vol] 96 U/L 45-117 [facility] Work Phone: ALT [Catalytic activity/Vol] 30 U/L 13-56 [facility] Work Phone: CO2 [Moles/Vol] 27.0 mmol/L 21.0-32.0 [facility] Work Phone: Globulin (S) [Mass/Vol] 3.3 g/dL 2.2-4.[address] [facility] Work Phone: Urea nitrogen/Creatinine [Mass ratio] 23.2 mg/mg 10-20 [facility] Work Phone: No Panel Informationon 09-14 Estimated GFR (MDRD) Amer 96 mL/min >60 [facility] Work Phone: Comment on above: GFR Calc Estimated GFR (MDRD) Non-Af Amer 79 mL/min >60 [facility] Work Phone: Comment on above: Non- GFR Calc Thyroid Stimulating Hormone (TSH) 2.07 uIU/mL 0.358-3.74 [facility] Work Phone: Urine Microalbumin/Creatinine Ratio 16.5 mg/g CRE <30 [facility] Work Phone: Vitamin D 25-Hydroxy 37.2 ng/mL [facility] Work Phone: Comment on above: Vitamin D 25(OH) Sta tus Range Deficiency <20 ng/mL (50nmol/L) Insufficiency 20 - 30 ng/mL (50 - 75 nmol/L) Sufficiency 30 - 100 ng/mL (75 - 250 nmol/L) Toxicity >100 ng/mL (>250 nmol/L) Serum or plasma albumin thomas urement (mass/volume)on 09-14-2021 Albumin [Mass/Vol] 3.7 g/dL 3.2-5.0 [facility] Work Phone: Serum or plasma albumin/glob ulin mass ratioon 09-14-2021 Albumin/Globulin [Mass ratio] 1.1 {ratio} 0.9-2.4 [facility] Work Phone: Serum or plasma calcium thomas urement (mass/volume)on 09-14-2021 Calcium [Mass/Vol] 9.2 mg/dL 8.5-10.1 [facility] Work Phone: Serum or plasma cholesterol in HDL measurement (mass/volume)on 09-14-2021 Cholesterol in HDL [Mass/Vol] 45 mg/dL [facility] Work Phone: Comment on above: The drugs N-Acetylcy steine and Metamizole may falsely depress this assay. Reference Range HDL <40 mg/dL Low HDL Cholesterol HDL >or= 60 mg/dL High HDL Cholesterol Serum or plasma cholesterol in VLDL measurement (mass/volume)on 09-14-2021 Cholesterol in VLDL [Mass/Vol] 45 mg/dL 5-40 [facility] Work Phone: Serum or plasma creatinine m easurement (mass/volume)on 09-14-2021 Creatinine [Mass/Vol] 0.78 mg/dL 0.55-1.02 [facility] Work Phone: Comment on above: The validity of the calculated GFR & GFRAA in patients over 70 years has not been determined. Clinical correlation is essential. Serum or plasma low density lipoprotein (LDL) cholesterol measurement (mass/volume)on 09-14-2021 Cholesterol in LDL [Mass/Vol] 111 mg/dL 0-130 [facility] Work Phone: Serum or plasma urea nitroge n measurement (mass/volume)on 09-14-2021 Urea nitrogen [Mass/Vol] 18 mg/dL 7-18 [facility] Work Phone: Thin prep Papanicolaou smear with manual screeningon 09-14-2021 Thin prep Papanicolaou smear with manual screening 19 U/L 15-37 [facility] Work Phone: Thin prep Papanicolaou smear with manual screening 5 5-15 [facility] Work Phone: Thin prep Papanicolaou smear with manual screening 7.2 mg/L NO RANGE EST. [facility] Work Phone: Urine creatinine measurement (mass/volume)on 09-14-2021 Creatinine (U) [Mass/Vol] 43.80 mg/dL NO RANGE EST. [facility] Work Phone: Whole blood hemoglobin A1c/t otal hemoglobin ratio (mass fraction)on 09-14-2021 HbA1c (Bld) [Mass fraction] 6.7 % 3.8-5.6 [facility] Work Phone: Comment on above: Normal < 5.7 % Predi abetic 5.7 - 6.4 % Diabetic >or= 6.5 % Please note range changes. Vital Signs Date Time Vital Sign Value Performing Clinician Faci idrisy 04-20-2024 14:15-0500 Body height 165.1 cm Frankiekevin Hartmanang CHIROPRACTIC NEUROLOGIST Work Phone: [facility] 04-20-2024 14:15-0500 Body mass index (BMI) [Ratio] 29.02 kg/m2 Frankie Sprang CHIROPRACTIC NEUROLOGIST Work Phone: [facility] 04-20-2024 14:15-0500 Body weight 79.11 kg Frankiekevin Arias CNP Work Phone: [facility] 04-20-2024 14:15-0500 Diastolic blood pressure 73 mm[Hg] Frankie Sprang CHIROPRACTIC NEUROLOGIST Work Phone: [facility] 04-20-2024 14:15-0500 Heart rate 83 /min Frankie Devanang CHIROPRACTIC NEUROLOGIST Work Phone: [facility] 04-20-2024 14:15-0500 Systolic blood pressure 127 mm[Hg] Frankie Sprang CHIROPRACTIC NEUROLOGIST Work Phone: [facility] 04-08-2023 09:18-0500 Body height 165.1 cm Frankie Devanang CHIROPRACTIC NEUROLOGIST Work Phone: [facility] 04-08-2023 09:18-0500 Body mass index (BMI) [Ratio] 29.05 kg/m2 Frankie Sprang CHIROPRACTIC NEUROLOGIST Work Phone: [facility] 04-08-2023 09:18-0500 Body weight 79.2 kg Frankie Sprang CHIROPRACTIC NEUROLOGIST Work Phone: [facility] 04-08-2023 09:18-0500 Diastolic blood pressure 76 mm[Hg] Frankie Sprang CHIROPRACTIC NEUROLOGIST Work Phone: [facility] 04-08-2023 09:18-0500 Heart rate 77 /min Frankie Sprang CHIROPRACTIC NEUROLOGIST Work Phone: [facility] 04-08-2023 09:18-0500 Systolic blood pressure 143 mm[Hg] Frankie Sprang CHIROPRACTIC NEUROLOGIST Work Phone: [facility] 02-24-2022 15:32-0500 Body height 165.1 cm Frankie Sprang CHIROPRACTIC NEUROLOGIST Work Phone: [facility] 02-24-2022 15:32-0500 Body mass index (BMI) [Ratio] 29.35 kg/m2 Frankie Sprang CHIROPRACTIC NEUROLOGIST Work Phone: [facility] 02-24-2022 15:32-0500 Body weight 80.02 kg Frankie Sprang CHIROPRACTIC NEUROLOGIST Work Phone: [facility] 02-24-2022 15:32-0500 Diastolic blood pressure 71 mm[Hg] Frankie Sprang CHIROPRACTIC NEUROLOGIST Work Phone: [facility] 02-24-2022 15:32-0500 Heart rate 76 /min Frankie Sprang CHIROPRACTIC NEUROLOGIST Work Phone: [facility] 02-24-2022 15:32-0500 Systolic blood pressure 117 mm[Hg] Frankie Sprang CHIROPRACTIC NEUROLOGIST Work Phone: [facility] 01-28-2022 16:13-0400 Body temperature 97.39 [degF] Kalee Kaylie SMOKE ROOM OPERATOR.CHIROPRACTIC NEUROLOGIST Work Phone: [facility] 01-28-2022 16:13-0400 Body weight 80.47 kg Kalee Kaylie SMOKE ROOM OPERATOR.CHIROPRACTIC NEUROLOGIST Work Phone: [facility] 01-28-2022 16:13-0400 Diastolic blood pressure 68 mm[Hg] Kalee Kaylie SMOKE ROOM OPERATOR.CHIROPRACTIC NEUROLOGIST Work Phone: [facility] 01-28-2022 16:13-0400 Heart rate 65 /min Kalee Kaylie SMOKE ROOM OPERATOR.CHIROPRACTIC NEUROLOGIST Work Phone: [facility] 01-28-2022 16:13-0400 Respiratory rate 18 /min Kalee Kaylie SMOKE ROOM OPERATOR.CHIROPRACTIC NEUROLOGIST Work Phone: [facility] 01-28-2022 16:13-0400 SaO2% (BldA) [Mass fraction] 97 % Kalee Kaylie SMOKE ROOM OPERATOR.CHIROPRACTIC NEUROLOGIST Work Phone: [facility] 01-28-2022 16:13-0400 Systolic blood pressure 122 mm[Hg] Kalee Kaylie SMOKE ROOM OPERATOR.CHIROPRACTIC NEUROLOGIST Work Phone: [facility] 10-17-2021 16:09-0400 Body temperature 98.71 [degF] Babita Lakhani SMOKE ROOM OPERATOR.CHIROPRACTIC NEUROLOGIST Work Phone: [facility] 10-17-2021 16:09-0400 Body weight 80.11 kg Babita Lakhani SMOKE ROOM OPERATOR.CHIROPRACTIC NEUROLOGIST Work Phone: [facility] 10-17-2021 16:09-0400 Diastolic blood pressure 78 mm[Hg] Babita Lakhani SMOKE ROOM OPERATOR.CHIROPRACTIC NEUROLOGIST Work Phone: [facility] 10-17-2021 16:09-0400 Heart rate 90 /min Babita Lakhani SMOKE ROOM OPERATOR.CHIROPRACTIC NEUROLOGIST Work Phone: [facility] 10-17-2021 16:09-0400 Respiratory rate 20 /min Babita Lakhani SMOKE ROOM OPERATOR.CHIROPRACTIC NEUROLOGIST Work Phone: [facility] 10-17-2021 16:09-0400 SaO2% (BldA) [Mass fraction] 96 % Babita Lakhani SMOKE ROOM OPERATOR.CHIROPRACTIC NEUROLOGIST Work Phone: [facility] 10-17-2021 16:09-0400 Systolic blood pressure 126 mm[Hg] Babita Lakhani SMOKE ROOM OPERATOR.CHIROPRACTIC NEUROLOGIST Work Phone: [facility] Encounters Encounter Date Encounter Type Care Provider Facility Start: 10-31-2024 End: 10-31-2024 ambulatory RACHAEL MCARTHUR Facility:[facility] Start: 10-09-2024 End: 10-10-2024 Refill Frankie Arias CHIROPRACTIC NEUROLOGIST Work Phone: [facility] Comment on above: Atrophic vaginitis Start: 07-21-2024 ambulatory Haydee Workman Facility: [facility] Start: 06-13-2024 End: 06-14-2024 Refill Frankie Arias CNP Work Phone: [facility] Comment on above: Atrophic vaginitis Start: 06-07-2024 End: 06-07-2024 ambulatory FRANKIE JESKayla ARIAS [facility] Start: 04-20-2024 End: 04-20-2024 Office outpatient visit 15 minutes Frankie Arias CNP Work Phone: [facility] Comment on above: Atrophic vaginitis ( Primary Dx); Encounter for gynecological examination without abnormal finding Start: 04-20-2024 End: 04-20-2024 Patient encounter status Frankie Arias CNP Work Phone: [facility] Start: 04-20-2024 End: 04-20-2024 ambulatory FRANKIEKEVIN ARIAS [facility] Start: 02-18-2024 End: 02-18-2024 ambulatory [facility] Facility:[facility] Start: 02-15-2024 End: 02-15-2024 Patient encounter procedure Rachael DUPONT Work Phone: Audiology Comment on above: Sensorineural hearin g loss, bilateral (Primary Dx) Start: 02-15-2024 End: 02-15-2024 ambulatory RACHAEL MCARTHUR Facility:[facility] Start: 01-07-2024 End: 01-07-2024 ambulatory [facility] Facility:[facility] Start: 11-03-2023 ambulatory [facility] Facility: [facility] Start: 10-16-2023 End: 10-16-2023 Emergency department patient visit [facility] Facility:[facility] Start: 09-18-2023 End: 09-18-2023 ambulatory [facility] Facility:[facility] Start: 04-08-2023 End: 04-08-2023 Patient encounter status Frankie Gloriae Gail LOVETT Work Phone: [facility] Work Phone: Start: 04-08-2023 End: 04-08-2023 Periodic preventive med est patient 65yrs& older Frankie Arias CHIROPRACTIC NEUROLOGIST Work Phone: [facility] Comment on above: Encounter for gyneco logical examination without abnormal finding (Primary Dx); Genitourinary syndrome of menopause; Atrophic vaginitis Start: 08-27-2022 End: 08-27-2022 ambulatory [facility] Work Phone: Start: 08-27-2022 End: 08-27-2022 Patient encounter procedure [facility] Start: 08-15-2022 ambulatory Rachael Mcarthur A UD Work Phone: Audiology Start: 08-11-2022 End: 08-11-2022 Patient encounter procedure Rachael Mcarthur AUD Work Phone: Audiology Comment on above: Sensorineural hearin g loss, bilateral (Primary Dx) Start: 06-18-2022 End: 06-18-2022 Patient encounter procedure Kennedi Hicks AUD Work Phone: Audiology Comment on above: Sensorineural hearin g loss, bilateral (Primary Dx) Start: 02-24-2022 End: 02-24-2022 Patient encounter status Frankie Arias RACHELL Work Phone: [facility] Start: 02-24-2022 End: 02-24-2022 Periodic preventive med est patient 40-64yrs Frankie Arias RACHELL Work Phone: [facility] Comment on above: Encounter for gyneco logical examination without abnormal finding (Primary Dx); Screening for malignant neoplasm of cervix; Screening mammogram, encounter for; Atrophic vaginitis Start: 02-10-2022 End: 02-10-2022 Patient encounter procedure Rachael Mcarthur AUD Work Phone: Audiology Comment on above: Sensorineural hearin g loss, bilateral (Primary Dx) Start: 01-28-2022 End: 01-28-2022 Patient encounter procedure Kalee Lott APRN.CHIROPRACTIC NEUROLOGIST Work Phone: [facility] Comment on above: Urgency of urination (Primary Dx); Acute lower UTI Start: 01-27-2022 End: 01-27-2022 Patient encounter procedure Rachael Mcarthur AUD Work Phone: Audiology Comment on above: Sensorineural hearin g loss, bilateral (Primary Dx) Start: 10-18-2021 Telephone encounter Tamela Nichols SMOKE ROOM OPERATOR.CHIROPRACTIC NEUROLOGIST Work Phone: [facility] Comment on above: Results Start: 10-17-2021 End: 10-17-2021 Patient encounter procedure Babita Lakhani SMOKE ROOM OPERATOR.CHIROPRACTIC NEUROLOGIST Work Phone: [facility] Comment on above: Acute sinusitis, rec urrence not specified, unspecified location (Primary Dx) Start: 10-14-2021 End: 10-14-2021 Patient encounter procedure Kennedi Hicks AUD Work Phone: Audiology Comment on above: Sensorineural hearin g loss, bilateral (Primary Dx) Start: 09-14-2021 End: 09-14-2021 Patient encounter procedure [facility] Start: 06-07-2020 End: 06-07-2020 Orders Only Bel Corrales Work Phone: [facility] Start: 12-25-2018 End: 12-25-2018 Subsequent hospital visit by physician Frankie Arias Work Phone: [facility] Comment on above: Breast screening, un specified Start: 12-19-2017 End: 12-19-2017 Patient encounter Isa Stiles Work Phone: [facility] Comment on above: Visit for screening mammogram Start: 11-22-2016 End: 11-22-2016 Patient encounter procedure Isa Stiles Work Phone: [facility] Comment on above: Encounter for screen ing mammogram for malignant neoplasm of breast Procedures Date Procedure Procedure Detail Performing Clinician Start: 06-07-2024 Mammography Frankie estrella CHIROPRACTIC NEUROLOGIST Work Phone: Start: 06-16-2023 Colonoscopy Frankie estrella CHIROPRACTIC NEUROLOGIST Work Phone: Start: 04-28-2023 Mammography Frankie estrella CHIROPRACTIC NEUROLOGIST Work Phone: Start: 04-26-2022 Mammography Kennedi del real AUD Work Phone: Start: 01-28-2022 Urnls dip stick/tabl et rgnt auto w/o microscopy Jael Roberts PA-C Work Phone: Start: 09-14-2021 Microalbumin [Mass/v olume] in Urine by Test strip Frankie Arias CHIROPRACTIC NEUROLOGIST Work Phone: Start: 03-16-2021 Mammography Kennedi del real AUD Work Phone: Start: 02-15-2020 Microscopic observat ion [Identifier] in Cervix by Cyto stain Bel Corrales Start: 01-28-2020 Mammography Bel potter Start: 02-09-2019 Adult depression scr eening assessment Frankie Arias [facility] Work Phone: Start: 07-05-2018 Colonoscopy Bel potter Start: 12-19-2017 Mammography Frankie estrella Start: 01-28-2017 Microscopic observat ion [Identifier] in Cervix by Cyto stain Frankie rAias Plan of Treatment Date Care Activity Detail Author Start: 06-15-2033 Screening for malign ant neoplasm of colon [facility] Start: 2032 Respiratory Syncytia l Virus Immunization: Risk, 60-74 Risk, or 75+ (1 - 1-dose 75+ series) Respiratory Syncytial Virus Immunization: Risk, 60-74 Risk, or 75+ (1 - 1-dose 75+ series) [facility] Start: 2032 RSV Vaccine (1 - 1-d ose 75+ series) RSV Vaccine (1 - 1-dose 75+ series) [facility] Start: 09-25-2031 Tetanus vaccination Tetanus: Every 1 0yrs [facility] Start: 09-25-2031 Urine microalbumin profile DTaP,Tdap,Td Vaccine (2 - Td or Tdap) [facility] Start: 07-05-2028 Screening for malign ant neoplasm of colon [facility] Start: 06-29-2025 End: 06-29-2025 Patient encounter procedure 06/29/2025 7:45 AM EDT Office Visit [facility] Obstetrics and Gynecology [address] [place] [phone] Frankie Arias, RACHELL [address] [place] [id number] [facility] Physician [facility] Obstetrics and Gynecology Start: 06-07-2025 Screening for malign ant neoplasm of breast Mammogram [facility] Start: 12-05-2024 Influenza vaccination Influenza Vacc ine (#1) [facility] Start: 10-03-2024 COVID-19 Vaccine ( season) COVID-19 Vaccine () [facility] Start: 06-07-2024 End: 06-07-2024 Patient encounter procedure 06/07/2024 9:15 AM EST Appointment [facility] [address] [place] [address] Frankie Arias, CHIROPRACTIC NEUROLOGIST [address] [place] [id number] [facility] Start: 04-28-2024 Screening for malign ant neoplasm of breast [facility] Start: 04-12-2024 End: 04-12-2024 Patient encounter procedure 04/12/2024 9:30 AM EST Office Visit [facility] Physician [facility] Obstetrics and Gynecology [address] [place] [phone] Frankie Arias, CHIROPRACTIC NEUROLOGIST [address] [place] [id number] [facility] Obstetrics and Gynecology Start: 04-08-2024 History and physical examination, annual for health maintenance Wellness Visit [facility] Start: 12-06-2023 Covid-19 Vaccine ( season) Covid-19 Vaccine () [facility] Start: 12-06-2023 Influenza vaccination Influenza Vacc ine (#1) [facility] Start: 04-28-2023 End: 04-28-2023 Patient encounter procedure 04/28/2023 3:15 PM EST Appointment [facility] [address] [place] [address] Frankie Arias, CHIROPRACTIC NEUROLOGIST [address] [place] [address] [facility] Start: 04-26-2023 Mammography MAMMOGRAM [facility] Start: 04-26-2023 Screening for malign ant neoplasm of breast Mammogram [facility] Start: 04-11-2023 Glaucoma screening Diabetic Eye Exam [facility] Start: 04-06-2023 Advance Directive Discussion Advance Directive Discussion [facility] Start: 02-25-2023 End: 02-25-2023 Patient encounter procedure 02/25/2023 Office Visit Obstetrics and Gynecology Frankie Arias, RACHELL [address] [place] [address] [facility] Obstetrics [facility] Gynecology Start: 02-24-2023 History and physical examination, annual for health maintenance Wellness Visit [facility] Start: 02-14-2023 Screening for malign ant neoplasm of cervix Pap Smear [facility] Start: 12-05-2022 Influenza vaccination [facility] Start: 09-16-2022 Hemoglobin A1c measurement A1C [facility] Start: 2022 ADVANCE DIRECTIVE DISCUSSION ADVANCE DIRECTIVE DISCUSSION [facility] Start: 2022 BONE DENSITY BONE DENSITY [facility] Start: 2022 Fall risk assessment Falls Risk Asse ssment [facility] Start: 2022 Pneumococcal Vaccine : 65+ (2 of 2 - PCV) Pneumococcal Vaccine: 65+ (2 of 2 - PCV) [facility] Start: 2022 Pneumococcal Vaccine : Age 65+ (2 - PCV) Pneumococcal Vaccine: Age 65+ (2 - PCV) [facility] Start: 2022 PNEUMOCOCCAL: 65+ (1 - PCV) PNEUMOCOCCAL: 65+ (1 - PCV) [facility] Start: 2022 Screening for osteoporosis Bone Density Screening [facility] Start: 04-06-2022 DEPRESSION ASSESSMENT DEPRESSION ASS ESSMENT [facility] Start: 03-16-2022 Mammography MAMMOGRAM [facility] Start: 03-16-2022 Screening for malign ant neoplasm of breast Mammogram [facility] Start: 03-16-2022 Urine screening for protein Urine Microalbumin [facility] Start: 12-05-2021 Influenza vaccination C [facility] Start: 10-17-2021 End: 10-31-2021 Influenza virus A and B RNA and SARS-CoV-2 (COVID-19) N gene panel - Respiratory specimen by JONG with probe detection COVID WITH FLUA+B, ROUTINE Microbiology Routine Acute sinusitis, recurrence not specified, unspecified location Expected: 10/17/2021, Expires: 10/31/2021 [facility] Work Phone: Comment on above: Expected: 10/17/2021 , Expires: 10/31/2021 Start: 07-20-2021 COVID-19 VACCINE (4 - Booster for Pfizer series) COVID-19 VACCINE (4 - Booster for Pfizer series) [facility] Start: 04-06-2021 DEPRESSION ASSESSMENT DEPRESSION ASS ESSMENT [facility] Start: 02-14-2021 History and physical examination, annual for health maintenance Wellness Visit [facility] Start: 01-27-2021 Screening mammography Mammogram O [facility] Start: 02-10-2020 Depression screening using PHQ-9 (Patient Health Questionnaire 9) score [facility] Start: 01-29-2020 Screening for malign ant neoplasm of cervix PAP SMEAR [facility] Start: 12-06-2019 Influenza vaccinatio n given Sequential Influenza Vaccine (#1) [facility] Start: 02-03-2019 History and physical examination, annual for health maintenance Wellness Visit [facility] Start: 12-19-2018 Screening mammography Mammogram O [facility] Start: 12-05-2018 Influenza vaccinatio n given SEQUENTIAL INFLUENZA VACCINE (#1) [facility] Start: 02-15-2018 Administration of he rpes zoster vaccine Zoster Vaccines (2 of 2) [facility] Start: 02-15-2018 Shingrix Vaccine (2 of 2) Shingrix Vaccine (2 of 2) [facility] Start: 12-05-2017 Influenza vaccination SEQUENTI AL INFLUENZA VACCINE (#1) [facility] Start: 12-05-2016 SEQUENTIAL INFLUENZA VACCINE (#1) SEQUENTIAL INFLUENZA VACCINE (#1) [facility] Work Phone: Start: 08-27-2016 Pneumococcal Vaccine : Age 50+ (2 of 2 - PCV) Pneumococcal Vaccine: Age 50+ (2 of 2 - PCV) [facility] Start: 2007 Administration of he rpes zoster vaccine Zoster Vaccines (1 of 2) [facility] Start: 2007 Screening for malign ant neoplasm of colon [facility] Start: 2007 SHINGRIX VACCINE (1 of 2) SHINGRIX VACCINE (1 of 2) [facility] Start: 2007 ZOSTER VACCINES (1 of 2) ZOSTE R VACCINES (1 of 2) [facility] Start: 2002 COLOGUARD (FIT-DNA) COLOGUARD (FIT-D NA) [facility] Start: 2002 Colonoscopy COLONOSCOPY [facility] Start: 2002 COLORECTAL CANCER SCREENING COLORECTAL CANCER SCREENING [facility] Start: [address] COLONOGRAPHY [facility] Start: 2002 DIABETES SCREEN DIABETES SCREEN [facility] Start: 2002 Diabetes Screening Diabetes Screenin g [facility] Start: 2002 FECAL OCCULT BLOOD FECAL OCCULT BLOO D [facility] Start: 2002 Lipid panel Lipid Screening [facility] Start: 2002 LIPID SCREEN LIPID SCREEN [facility] Start: 2002 Screening for malign ant neoplasm of colon [facility] Start: 2002 SIGMOIDOSCOPY SIGMOIDOSCOPY [facility] Start: 1987 HPV TESTING HPV TESTING [facility] Start: 1978 PAP TESTING PAP TESTING [facility] Start: 1976 Urine microalbumin profile DTAP,TDAP,TD (1 - Tdap) [facility] Start: 1975 Anxiety Screening Anxiety Screening [facility] Start: 1975 Depression Screening Depression Scre ening [facility] Start: 1975 Hepatitis C antibody , confirmatory test Hepatitis C Screening [facility] Start: 1975 HEPATITIS C SCREENING HEPATITIS C [facility] Start: 1975 Hepatitis C screening Hepatitis C [facility] Start: 1975 HIV SCREENING HIV SCREENING [facility] Start: 1973 COVID-19 Vaccine (1 of 2) COVID-19 Vaccine (1 of 2) [facility] Start: 1972 HIV screening HIV Screening [facility] Start: 1969 Adolescent depressio n screening assessment [facility] Start: 1967 Diabetic foot examination [facility] Start: 1967 Glaucoma screening Ophthalmology Exa m [facility] Start: 1967 Urine screening for protein Urine Microalbumin [facility] Start: 1960 Medicare Wellness Visit Medicare Wel lness Visit [facility] Start: 1957 Colonoscopy COLONOSCOPY [facility] Work Phone: Start: 1957 Hemoglobin A1c measurement A1C [facility] Start: 1957 Hepatitis C antibody , confirmatory test HEPATITIS C SCREENING [facility] Start: 1957 HEPATITIS C SCREENING HEPATITIS C SC REENING [facility] Work Phone: Start: 1957 Microscopic observat ion Cyto stain Nom (Cvx) PAP SMEAR [facility] Work Phone: Start: 1957 Screening colonoscopy [facility]COPY [facility] Start: 1957 Screening for malign ant neoplasm of colon [facility] Start: 1957 Screening for osteoporosis Dexa Scan [facility] Start: 1957 TETANUS EVERY 10 YR TETANUS EVERY 10 YR [facility] Work Phone: Start: 1957 Tetanus vaccination [facility] Bacteria identified in Urine by Culture URINE CULTURE Microbiology Routine Urgency of urination Acute lower UTI Ordered: 01/28/2022 [facility] Work Phone: Comment on above: Ordered: 01/28/2022 End: 12-19-2017 MG Breast - bilateral screening Mammography Screening Bilateral Routine Visit for screening mammogram Once for 1 Occurrences starting 12/19/2017 until 12/19/2017 [facility] Comment on above: Once for 1 Occurrenc es starting 12/19/2017 until 12/19/2017 MG Breast - bilatera l screening [facility] Work Phone: End: 11-22-2016 MG Breast - bilateral screening Mammography Screening Bilateral Routine Encounter for screening mammogram for malignant neoplasm of breast Once for 1 Occurrences starting 11/22/2016 until 11/22/2016 [facility] Work Phone: Comment on above: Once for 1 Occurrenc es starting 11/22/2016 until 11/22/2016 End: 12-25-2018 MG Breast - bilateral screening Mammography Screening Bilateral Imaging Routine Breast screening, unspecified Once for 1 Occurrences starting 12/25/2018 until 12/25/2018 [facility] Comment on above: Once for 1 Occurrenc es starting 12/25/2018 until 12/25/2018 End: 04-26-2023 MG Breast - bilateral Screening Mammography Screening Deo Bilateral Imaging Routine Screening Mammogram, Encounter For 1 Occurrences starting 02/24/2022 until 04/26/2023 [facility] Comment on above: 1 Occurrences starti ng 02/24/2022 until 04/26/2023 End: 02-24-2023 Microscopic examination of vaginal Papanicolaou smear Thinprep Pap Smear Pathology and Cytology Routine Encounter for gynecological examination without abnormal finding Screening for malignant neoplasm of cervix 1 Occurrences starting 02/24/2022 until 02/24/2023 [facility] Work Phone: Comment on above: 1 Occurrences starti ng 02/24/2022 until 02/24/2023 [facility] Payers Date Payer Category Payer Self-pay [id number] 2022 Medicare [id number] 2022 Medicare PPO [employer] MED[employer] P ZAINAB (PPO) [id number] 2022 Medicare [id number] 2021 Unknown [id number] 2006 Unknown [id number] 2006 Unknown ANTHEM ANTHEM BLUE/PREF/HMO/PPO [id number] 2006-Present [id number] 1957 Unknown [id number] 1957 Unknown [id number] Unknown [id number] Unknown SELF PAY INSURANCE [id number] Unknown [id number] Unknown ANTHEM [id number] Unknown [id number] Unknown [id number] Unknown [id number] Unknown [id number] Unknown [id number] Unknown [id number] Social History Date Type Detail Facility Start: 12-19-2017 End: 02-24-2022 Tobacco smoking status [facility] Never smoker [facility] Start: 1955 Sex Assigned At Not on file [facility] Work Phone: Start: 02-15-2020 End: 02-24-2022 Tobacco use and exposure Never used [facility] Start: 02-15-2020 End: 06-07-2024 Alcohol intake Current drinker of alcohol (finding) [facility] Start: 01-19-2015 Alcohol Comment 4 drinks per month [facility] Start: 07-01-2018 Tobacco smoking status NHIS Unknown if ever smoked [facility] Start: 1955 Sex Assigned At Female [facility] Start: 10-04-2021 End: 02-24-2022 Exposure to SARS-CoV-2 (event) Not sure [facility] Start: 01-28-2022 Alcohol intake Lifetime non-drinker (finding) [facility] Start: 02-24-2022 End: 04-20-2024 Alcohol intake [facility] Start: 04-08-2023 End: 04-20-2024 Tobacco use panel [facility] Start: 02-03-2018 Gender identity Identifies as female gender (finding) [facility] Start: 02-03-2018 Sexual orientation Heterosexual (finding) [facility] National Score (1-10 0), lower number is lower risk 72 [facility] Goals Date Patient Goal Desired Activity /State Personal health goal Clinical Notes 10-14-2021 to 04-20-2024 Frankie Arias, RACHELL - 04/20/2024 1:54 PM Rachael Meyers AUD - 02/16/2024 9:47 PM Frankie Meléndez CNP - 04/08/2023 9:13 AM Dejan Mcarthur AUD - 08/15/2022 1:02 PM EDT Note Date & Type Note Facility 04-20-2024 Note [facility] Exam Patient Name: Jonathon Pennington : 1955 MR #: [id number] SUBJECTIVE: Jonathon Pennington is a 69 y.o. 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 and medication refill Chief Complaint Patient presents with Annual Exam Last annual 04/08/23, pap 02/24/22 neg, mmg elinor'd 06/07/24, Hx TRAN/BSO HPI Presents for breast exam /PRODUCE SORTER exam and follow up to atrophic vaginitis S/P TRAN/BSO / for benign reasons Currently using vaginal estrogen biweekly with relief of vaginal dryness and dysparunea Denies vaginal bleeding ,discharge , pelvic pain //GI symptoms She is currently sexually active / monogamous relationship She has already completed hereditary cancer genetic testing due to FH Ovarian cancer in [facility] and was negative Retired and has been traveling with her Likes to walk for exercise Taking Vit D /calcium some days Under care PCP in [place] for hypothyroid and type 2 diabetes Reports she had a recent DEXA screening at [facility] Has screening MMG scheduled at [facility] 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 Patient has had a hysterectomy. Denies a history of abnormal cervical cytology Denies a history of abnormal cervical cytology 04/26/22 normal screening MMG/[facility] /[place] Last vaginal pap normal 02/2022 Past Medical History Past Medical History: Diagnosis Date Breast mass, right 01/19/2015 Breast pain left breast Diabetes mellitus, type 2 (HCC) Family history of ovarian cancer 01/19/2015 Hypercholesteremia Hypothyroidism Past Surgical History has a past surgical history that includes Blepharoplasty (12/2014); [place] tooth extraction; Cholecystectomy; Amputation Hand (Left); Hysterectomy (1997); and Oophorectomy. Family History Her family history includes Lung cancer in her maternal grandfather; Lung cancer (age of onset: 81) in her father; Multiple sclerosis in her mother; Ovarian cancer (age of onset: 50) in her maternal grandmother. Medications She has a current medication list which includes the following prescription(s): erythromycin 0.5%, estradiol, levothyroxine, metformin, multivitamin, and simvastatin. Allergies She is allergic to sulfa (sulfonamide antibiotics) and tetanus vaccines and toxoid. Social History She reports that she has never smoked. She has never used smokeless tobacco. She reports current alcohol use. She reports that she does not use drugs. Review of Systems Review of Systems Constitutional: Negative for appetite change, chills, fatigue, fever and unexpected weight change. HENT: Negative for congestion, sinus pain and sore throat. Eyes: Negative for visual disturbance. Respiratory: Negative for cough, shortness of breath and wheezing. Cardiovascular: Negative for chest pain, palpitations and leg swelling. Gastrointestinal: Negative for abdominal pain, constipation, diarrhea, nausea and vomiting. Endocrine: Negative for cold intolerance and heat intolerance. Genitourinary: Negative for difficulty urinating, dyspareunia, dysuria, flank pain, frequency, genital sores, hematuria, menstrual problem, pelvic pain, urgency, vaginal bleeding, vaginal discharge and vaginal pain. Musculoskeletal: Negative for arthralgias and joint swelling. Skin: Negative for color change and rash. Neurological: Negative for dizziness, syncope, numbness and headaches. Hematological: Does not bruise/bleed easily. Psychiatric/Behavioral: Negative for dysphoric mood and sleep disturbance. The patient is not nervous/anxious. OBJECTIVE: Vitals: 04/20/24 1415 BP: 127/73 Pulse: 83 Weight: 79.1 kg (174 lb 6.4 oz) Height: 5' 5 Body mass index is 29.02 kg/m . Physical Examination: Physical Exam Constitutional: Appearance: Normal appearance. HENT: Head: Normocephalic. Neck: Thyroid: No thyroid mass or thyromegaly. Cardiovascular: Rate and Rhythm: Normal rate and regular rhythm. Pulmonary: Effort: Pulmonary effort is normal. Breath sounds: Normal breath sounds. Chest: Chest wall: No mass. Breasts: Right: Normal. No swelling, bleeding, mass, nipple discharge, skin change or tenderness. Left: Normal. No swelling, bleeding, mass, nipple discharge, skin change or tenderness. Abdominal: Palpations: Abdomen is soft. There is no mass. Tenderness: There is no abdominal tenderness. Genitourinary: Labia: Right: No rash, tenderness or lesion. Left: No rash, tenderness or lesion. Urethra: No urethral swelling. Vagina: No vaginal discharge, erythema, tenderness or bleeding. Uterus: Absent. Adnexa: Right: No mass, tenderness or fullness. Left: No mass, tenderness or fullness. Lymphadenopathy: Cervical: No cervical adenopathy. Upper Body: Right upper body: No supraclavicular, axillary or pectoral adenopathy. Left upper body: No supraclavicular, axillary or pector (more content not included)... [facility] 04-20-2024 History of Present illness Narrative [facility] Exam Patient Name: Jonathon Pennington : 1955 [id number] SUBJECTIVE: Jonathon Pennington is a 69 y.o. 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 and medication refill Chief Complaint Patient presents with Annual Exam Last annual 04/08/23, pap 02/24/22 neg, mmg elinor'd 06/07/24, Hx TRAN/BSO HPI Presents for breast exam /PRODUCE SORTER exam and follow up to atrophic vaginitis S/P TRAN/BSO / for benign reasons Currently using vaginal estrogen biweekly with relief of vaginal dryness and dysparunea Denies vaginal bleeding ,discharge , pelvic pain //GI symptoms She is currently sexually active / monogamous relationship She has already completed hereditary cancer genetic testing due to FH Ovarian cancer in [facility] and was negative Retired and has been traveling with her Likes to walk for exercise Taking Vit D /calcium some days Under care PCP in [place] for hypothyroid and type 2 diabetes Reports she had a recent DEXA screening at [place] [facility] Has screening MMG scheduled at [facility] 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 Patient has had a hysterectomy. Denies a history of abnormal cervical cytology Denies a history of abnormal cervical cytology 04/26/22 normal screening MMG/[facility] /[place] Last vaginal pap normal 02/2022 Past Medical History Past Medical History: Diagnosis Date Breast mass, right 01/19/2015 Breast pain left breast Diabetes mellitus, type 2 (HCC) Family history of ovarian cancer 01/19/2015 Hypercholesteremia Hypothyroidism Past Surgical History has a past surgical history that includes Blepharoplasty (12/2014); [place] tooth extraction; Cholecystectomy; Amputation Hand (Left); Hysterectomy (1997); and Oophorectomy. Family History Her family history includes Lung cancer in her maternal grandfather; Lung cancer (age of onset: 81) in her father; Multiple sclerosis in her mother; Ovarian cancer (age of onset: 50) in her maternal grandmother. Medications She has a current medication list which includes the following prescription(s): erythromycin 0.5%, estradiol, levothyroxine, metformin, multivitamin, and simvastatin. Allergies She is allergic to sulfa (sulfonamide antibiotics) and tetanus vaccines and toxoid. Social History She reports that she has never smoked. She has never used smokeless tobacco. She reports current alcohol use. She reports that she does not use drugs. Review of Systems Review of Systems Constitutional: Negative for appetite change, chills, fatigue, fever and unexpected weight change. HENT: Negative for congestion, sinus pain and sore throat. Eyes: Negative for visual disturbance. Respiratory: Negative for cough, shortness of breath and wheezing. Cardiovascular: Negative for chest pain, palpitations and leg swelling. Gastrointestinal: Negative for abdominal pain, constipation, diarrhea, nausea and vomiting. Endocrine: Negative for cold intolerance and heat intolerance. Genitourinary: Negative for difficulty urinating, dyspareunia, dysuria, flank pain, frequency, genital sores, hematuria, menstrual problem, pelvic pain, urgency, vaginal bleeding, vaginal discharge and vaginal pain. Musculoskeletal: Negative for arthralgias and joint swelling. Skin: Negative for color change and rash. Neurological: Negative for dizziness, syncope, numbness and headaches. Hematological: Does not bruise/bleed easily. Psychiatric/Behavioral: Negative for dysphoric mood and sleep disturbance. The patient is not nervous/anxious. OBJECTIVE: Vitals: 04/20/24 1415 BP: 127/73 Pulse: 83 Weight: 79.1 kg (174 lb 6.4 oz) Height: 5' 5 Body mass index is 29.02 kg/m . Physical Examination: Physical Exam Constitutional: Appearance: Normal appearance. HENT: Head: Normocephalic. Neck: Thyroid: No thyroid mass or thyromegaly. Cardiovascular: Rate and Rhythm: Normal rate and regular rhythm. Pulmonary: Effort: Pulmonary effort is normal. Breath sounds: Normal breath sounds. Chest: Chest wall: No mass. Breasts: Right: Normal. No swelling, bleeding, mass, nipple discharge, skin change or tenderness. Left: Normal. No swelling, bleeding, mass, nipple discharge, skin change or tenderness. Abdominal: Palpations: Abdomen is soft. There is no mass. Tenderness: There is no abdominal tenderness. Genitourinary: Labia: Right: No rash, tenderness or lesion. Left: No rash, tenderness or lesion. Urethra: No urethral swelling. Vagina: No vaginal discharge, erythema, tenderness or bleeding. Uterus: Absent. Adnexa: Right: No mass, tenderness or fullness. Left: No mass, tenderness or fullness. Lymphadenopathy: Cervical: No cervical adenopathy. Upper Body: Right upper body: No supraclavicular, axillary or pectoral adenopathy. Left upper body: No supraclavicular, axillary or pectoral adenopathy. Lower Body: No right inguinal adenopathy. No left inguinal adenopathy. Skin: Findings: No rash. Neurological: Mental Status: She is alert. ASSESSMENT/PLAN: Jonathon Pennington 69 y.o. presents for her routine PRODUCE SORTER exam today. PRODUCE SORTER /Breast exam No pap indicated She request pap every 2 yrs due to FH cervical cancer - Discussed recommendations on breast self-awareness and screening MMG scheduled at [facility] Hereditary cancer genetic testing was recommended. - Reviewed diet and exercise recommendations reviewed for bone health and DEXA has been completed last year and she will forward results to office Atrophic vaginitis We discussed vaginal atrophy, natural course, cause and treatment options. She would like to continue with vaginal estrogen therapy twice weekly usage. R/B/SE use of vaginal estrogen therapy reviewed RF x 12 months provided - RTO 12 months for routine PRODUCE SORTER exam or sooner as needed Frankie Arias CNP documented in this encounter [facility] 02-16-2024 Note HNO ID: [id number] Author: RACHAEL MCARTHUR AUD Service: ? Author Type: All Source Intelligence Technician Type: Progress Notes Filed: 02/16/2024 21:48 Note Text: [facility] [place] HEARING AID CHECK Name: Jonathon Pennington CCF#: [id number] Date of Service: 02/15/2024 Date of : 1955 Age: [age] year old DEVICE INFORMATION RIGHT: Phonak Audeo L90-RL SN: [id number] Earmold/Tubing/Real Estate Site Analyst/Dome: 1M/largeopen no retention line LEFT: Phonak Audeo L90-RL SN: [id number] Earmold/Tubing/Real Estate Site Analyst/Dome: 1M/small open no retention line MEDICAL DOCTOR MD: Life Adult Literacy Teacher SN: [id number] Replacement Adult Literacy Teacher Case Go: SN: [id number] Fitting Date: 01/27/2022 Repair Warranty Expiration Date: 04/06/2025 Loss/Damage Expiration Date: 04/06/2025 Fitting All Source Intelligence Technician: Cresencio Magallon CCC/A Wax Traps: CeruShield (disk) Retention: No Remote Support Activated: Yes Phone Connectivity: Yes Adelia Connectivity: Yes Patient came to the office to pickler helper wax traps and domes. FINANCIAL COMPONENT No charge-TIP RECOMMENDATIONS * Use of hearing device(s) during all waking hours except when activities preclude device safety. * Schedule a hearing aid check annually or sooner if concerns arise. * Return for re-evaluation as medically indicated or sooner if change is noted. Cresencio Magallon CCC-Celine Clinical and Senior Hearing Implant All Source Intelligence Technician [facility] 02-16-2024 History of Present illness Narrative [facility] [place] [place] HEARING AID CHECK Name: Jonathon Pennington CCF#: [id number] Date of Service: 02/15/2024 Date of : 1955 Age: [age] year old DEVICE INFORMATION RIGHT: Phonak Audeo L90-RL SN: [id number] Earmold/Tubing/Real Estate Site Analyst/Dome: 1M/largeopen no retention line LEFT: Phonak Audeo L90-RL SN: [id number] Earmold/Tubing/Real Estate Site Analyst/Dome: 1M/small open no retention line MEDICAL DOCTOR MD: Life Adult Literacy Teacher SN: [id number] Replacement Adult Literacy Teacher Case Go: SN: [id number] Fitting Date: 01/27/2022 Repair Warranty Expiration Date: 04/06/2025 Loss/Damage Expiration Date: 04/06/2025 Fitting All Source Intelligence Technician: Cresencio Magallon CCC/A Wax Traps: CeruShield (disk) Retention: No Remote Support Activated: Yes Phone Connectivity: Yes Adelia Connectivity: Yes Patient came to the office to pickler helper wax traps and domes. FINANCIAL COMPONENT No charge-TIP RECOMMENDATIONS * Use of hearing device(s) during all waking hours except when activities preclude device safety. * Schedule a hearing aid check annually or sooner if concerns arise. * Return for re-evaluation as medically indicated or sooner if change is noted. Cresencio Magallon CCC-Celine Clinical and Senior Hearing Implant All Source Intelligence Technician documented in this encounter [facility] 04-08-2023 History of Present illness Narrative Images from the original note were not included. Well Women Exam Patient Name: Jonathon Pennington : 1955 MR #: [id number] SUBJECTIVE: Jonathon Pennington is a 67 y.o. here for Well Women's exam today. Chief Complaint Patient presents with Annual Exam Pt here for annual exam, last pap 02/24/22 neg, mmg elinor'd 04/28/23 HPI Presents for Well Women exam S/P TRAN/BSO / for benign reasons Currently using vaginal estrogen biweekly with relief of vaginal dryness and dysparunea Denies vaginal bleeding ,discharge , pelvic pain //GI symptoms She is currently sexually active / monogamous relationship She has already completed hereditary cancer genetic testing due to FH Ovarian cancer in [facility] and was negative Recently retired and has been traveling with her Likes to walk for exercise Taking Vit D daily Under care PCP in [place] for hypothyroid and type 2 diabetes 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 Patient has had a hysterectomy. Denies a history of abnormal cervical cytology 04/26/22 normal screening MMG/[facility] Last vaginal pap normal 02/2022 Past Medical History Past Medical History: Diagnosis Date Breast mass, right 01/19/2015 Breast pain left breast Diabetes mellitus, type 2 (HCC) Family history of ovarian cancer 01/19/2015 Hypercholesteremia Hypothyroidism Past Surgical History has a past surgical history that includes Blepharoplasty (12/2014); [place] tooth extraction; Cholecystectomy; Amputation Hand (Left); Hysterectomy (1997); and Oophorectomy. Family History Her family history includes Lung cancer in her maternal grandfather; Lung cancer (age of onset: 81) in her father; Multiple sclerosis in her mother; Ovarian cancer (age of onset: 50) in her maternal grandmother. Medications She has a current medication list which includes the following prescription(s): levothyroxine, metformin, multivitamin, simvastatin, erythromycin 0.5%, and [START ON 04/09/2023] estradiol. Allergies She is allergic to sulfa (sulfonamide antibiotics) and tetanus vaccines and toxoid. Social History She reports that she has never smoked. She has never used smokeless tobacco. She reports current alcohol use. She reports that she does not use drugs. Review of Systems Review of Systems Constitutional: Negative for appetite change, chills, fatigue, fever and unexpected weight change. HENT: Negative for congestion, sinus pain and sore throat. Eyes: Negative for visual disturbance. Respiratory: Negative for cough, shortness of breath and wheezing. Cardiovascular: Negative for chest pain, palpitations and leg swelling. Gastrointestinal: Negative for abdominal pain, constipation, diarrhea, nausea and vomiting. Endocrine: Negative for cold intolerance and heat intolerance. Genitourinary: Negative for difficulty urinating, dyspareunia, dysuria, flank pain, frequency, genital sores, hematuria, menstrual problem, pelvic pain, urgency, vaginal bleeding, vaginal discharge and vaginal pain. Musculoskeletal: Negative for arthralgias and joint swelling. Skin: Negative for color change and rash. Neurological: Negative for dizziness, syncope, numbness and headaches. Hematological: Does not bruise/bleed easily. Psychiatric/Behavioral: Negative for dysphoric mood and sleep disturbance. The patient is not nervous/anxious. OBJECTIVE: Vitals: 04/08/23 0918 BP: (!) 143/76 Pulse: 77 Weight: 79.2 kg (174 lb 9.6 oz) Height: 5' 5 Body mass index is 29.05 kg/m . Physical Examination: Physical Exam Constitutional: Appearance: Normal appearance. HENT: Head: Normocephalic. Neck: Thyroid: No thyroid mass or thyromegaly. Cardiovascular: Rate and Rhythm: Normal rate and regular rhythm. Pulmonary: Effort: Pulmonary effort is normal. Breath sounds: Normal breath sounds. Chest: Chest wall: No mass. Breasts: Right: Normal. No swelling, bleeding, mass, nipple discharge, skin change or tenderness. Left: Normal. No swelling, bleeding, mass, nipple discharge, skin change or tenderness. Abdominal: Palpations: Abdomen is soft. There is no mass. Tenderness: There is no abdominal tenderness. Genitourinary: Labia: Right: No rash, tenderness or lesion. Left: No rash, tenderness or lesion. Urethra: No urethral swelling. Vagina: No vaginal discharge, erythema, tenderness or bleeding. Uterus: Absent. Adnexa: Right: No mass, tenderness or fullness. Left: No mass, tenderness or fullness. Lymphadenopathy: Cervical: No cervical adenopathy. Upper Body: Right upper body: No supraclavicular, axillary or pectoral adenopathy. Left upper body: No supraclavicular, axillary or pectoral adenopathy. Lower Body: No right inguinal adenopathy. No left inguinal adenopathy. Skin: Findings: No rash. Neurological: Mental Status: She is alert. ASSESSMENT/PLAN: Jonathon Pennington 67 y.o. presents for her routine PRODUCE SORTER exam today. Well Women Exam - No Pap indicated - Reviewed diet and exercise recommendations reviewed for bone health and DEXA advised soon - Discussed recommendations on breast self-awareness and screening MMG is schedule at [facility] Atrophic vaginitis We discussed vaginal atrophy, natural course, cause and treatment options. She would like to continue with vaginal estrogen therapy twice weekly usage. R/B/SE use of vaginal estrogen therapy reviewed RF x 12 months provided These Medications Have Changed Change Disp Refills Start End Stop estradioL (ESTRACE) 0.01 % (0.1 mg/gram) vaginal cream (Discontinued) 42.5 g 2 02/24/2022 04/08/2023 Sig: Insert 1 (one) g into the vagina twice weekly . Route: Vaginal Reason for Discontinue: Reorder (Suppress CancelRx Message to Pharmacy) Start estradioL (ESTRACE) 0.01 % (0.1 mg/gram) vaginal cream 42.5 g 2 04/09/2023 04/08/2024 Sig: Insert 1 (one) g into the vagina twice weekly Start: 04/09/23. Route: Vaginal Discontinued Medications Disp Refills Start End ergocalciferol (ERGOCALCIFEROL) 50,000 unit capsule 12/21/2014 04/08/2023 Class: Historical Med Reason for Discontinue: Patient's Request - RTO 12 months for routine PRODUCE SORTER exam or sooner as needed Frankie Arias CNP documented in this encounter [facility] 08-15-2022 History of Present illness Narrative [facility] [place] HEARING AID CHECK Name: Jonathon Pennington CC#: [id number] Date of Service: 08/15/2022 Date of : 1955 Age: [age] year old DEVICE INFORMATION RIGHT: Sean Harto L90-RL SN: [id number] Earmold/Tubing/Real Estate Site Analyst/Dome: 1M/largeopen no retention line LEFT: Sean Duponteo L90-RL SN: [id number] Earmold/Tubing/Real Estate Site Analyst/Dome: 1M/small open no retention line MEDICAL DOCTOR MD: Life Adult Literacy Teacher SN: [id number] Replacement Adult Literacy Teacher Case Go: SN: [id number] Fitting Date: 01/27/2022 Repair Warranty Expiration Date: 04/06/2025 Loss/Damage Expiration Date: 04/06/2025 Fitting All Source Intelligence Technician: Cresencio Magallon CCC/Celine Eller Traps: Kayleneield (disk) Retention: No Remote Support Activated: Yes Phone Connectivity: Yes Adelia Connectivity: Yes Received replacement Adult Literacy Teacher Case Go. Adult Literacy Teacher was charged and patient was called. Left VM that patient can pickler helper Thursday-Thursday between 8:30 am- 4:30 pm FINANCIAL COMPONENT No charge-TIP RECOMMENDATIONS * Use of hearing device(s) during all waking hours except when activities preclude device safety. * Schedule a hearing aid check annually or sooner if concerns arise. * Return for re-evaluation as medically indicated or sooner if change is noted. Cresencio Magallon CCC-Celine Clinical and Senior Hearing Implant All Source Intelligence Technician documented in this encounter [facility] 08-11-2022 History of Present illness Narrative [facility] HEARING AID CHECK Name: Jonathon Pennington CC#: [id number] Date of Service: 08/11/2022 Date of : 1955 Age: [age] year old DEVICE INFORMATION RIGHT: Sean Harto L90-RL SN: [id number] Earmold/Tubing/Real Estate Site Analyst/Dome: 1M/largeopen no retention line LEFT: Sean Harto L90-RL SN: [id number] Earmold/Tubing/Real Estate Site Analyst/Dome: 1M/small open no retention line MEDICAL DOCTOR MD: Life Adult Literacy Teacher SN: [id number] Fitting Date: 01/27/2022 Repair Warranty Expiration Date: 04/06/2025 Loss/Damage Expiration Date: 04/06/2025 Fitting All Source Intelligence Technician: Cresencio Magallon, KIKI/Celine Wax Traps: Natalia (disk) Retention: No Remote Support Activated: Yes Phone Connectivity: Yes Adelia Connectivity: Yes SUBJECTIVE ASSESSMENT Jonathon Pennington, was seen today for a hearing aid check of the above device(s). The patient reported that she has been having intermittent issues with her prescriptionist. When she plugs plugs the charging cable into her computer the device charges without an issue however when she uses the charging block in the wall it may or may not work. Spoke Tanya in customer service. Replacement prescriptionist confirmation # [phone] DEVICE CHECK Initial listening check and visual inspection revealed good function. The device(s) were cleaned and checked. The domes and wax guards were changed. Device(s) were brushed/vacuumed and devices run through the drying chamber. Listening check revealed excellent function of the device(s). Device(s) were returned to patient who reported satisfaction with sound quality. Devices were updated to the new firmware. PROGRAMMING The device(s) were programmed accordingly to address the outcome measures and patient's comments. Fitting Formula: Adaptive PhonKeep [facility] Open Digital 2.0 Acclimatization: 100% Volume Control: Yes Feedback Help Desk Technician: Completed Data Logging: N/A Hearing Aid Programs P1 AutoSense OS Patient was satisfied with the sound quality and fit of the devices today. COUNSELING Patient was advised of an issue that we had with Phonak charging blocks although her charging block is not one of the ones that were affected. She was provided a new charging block today and replacement prescriptionist was ordered from [employer]. Patient will be leaving for [place] in approximately 1 week. PLEASE CONTACT PATIENT FLETCHER WHEN THE NEW MEDICAL DOCTOR MD ARRIVES SO SHE MAY PICK IT UP QUICK POSSIBLE. FINANCIAL COMPONENT Patient was not charged for today's visit; Within first year of purchase (Treatment in progress). RECOMMENDATIONS * Use of hearing device(s) during all waking hours except when activities preclude device safety. * Schedule a hearing aid check annually or sooner if concerns arise. * Return for re-evaluation as medically indicated or sooner if change is noted. Cresencio Magallon CCC-A Clinical and Senior Hearing Implant All Source Intelligence Technician documented in this encounter [facility] 06-18-2022 History of Present illness Narrative HEARING AID MEDIA PRODUCTION OPERATOR RIGHT: Phonak Audeo L90-RL SN: [id number] Earmold/Tubing/Real Estate Site Analyst/Dome: 1M/largeopen no retention line LEFT: Phonak Audeo L90-RL SN: [id number] Earmold/Tubing/Real Estate Site Analyst/Dome: 1M/small open no retention line Fitting Date: 01/27/2022 Repair Warranty Expiration Date: 04/06/2025 Loss/Damage Expiration Date: 04/06/2025 Fitting All Source Intelligence Technician: Cresencio Magallon CCC/Celine Patient picked up repaired hearing aids and supplies. No charge, in first year of fitting, treatment in progress. Cresencio Hill Clinical All Source Intelligence Technician documented in this encounter [facility] 02-24-2022 History of Present illness Narrative Well Women Exam Patient Name: Jonathon Pennington : 1955 MR #: [id number] SUBJECTIVE: Jonathon Pennington is a 66 y.o. here for Well Women's exam today. Chief Complaint Patient presents with Well Woman [facility] transfer, last pap 02/15/20 neg TRAN, last annual 02/20/21, last mmg 03/16/21; pt c/o some pain and dryness with intercourse HPI Presents for Well Women's exam today S/P TRAN/BSO / benign reasons C/O vaginal dryness and painful intercoure over lat year Denies vaginal bleeding , ;pelvic pain //GI symptoms Risk assessment for hereditary breast and ovarian cancer screening health questionnaire reviewed: yes.FH in [facility] of ovarian cancer Based on clinical review, the patient has already completed hereditary cancer genetic testing due to FH Ovarian cancer in [facility] Under care PCP for hypothyroid and type 2 diabetes in [place] 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 Patient has had a hysterectomy. Denies a history of abnormal cervical cytology Normal pap 02/15/2020 Had screening colonoscopy in 2018 with /Dr Peace Negative colonoscopy 07/2018 Normal MMG 03/16/21 : normal Cat 1/ Under care Dr St[facility]/[place] breast specialist for cystic breasts Past Medical History Past Medical History: Diagnosis Date Breast mass, right 01/19/2015 Breast pain left breast Diabetes mellitus, type 2 (HCC) Family history of ovarian cancer 01/19/2015 Hypercholesteremia Hypothyroidism Past Surgical History has a past surgical history that includes Blepharoplasty (12/2014); [place] tooth extraction; Cholecystectomy; Amputation Hand (Left); Hysterectomy (1997); and Oophorectomy. Family History Her family history includes Lung cancer in her maternal grandfather; Lung cancer (age of onset: 81) in her father; Multiple sclerosis in her mother; Ovarian cancer (age of onset: 50) in her maternal grandmother. Medications She has a current medication list which includes the following prescription(s): ergocalciferol, erythromycin 0.5%, levothyroxine, metformin, simvastatin, and estradiol. Allergies She is allergic to sulfa (sulfonamide antibiotics) and tetanus vaccines and toxoid. Social History She reports that she has never smoked. She has never used smokeless tobacco. She reports current alcohol use. She reports that she does not use drugs. Review of Systems Review of Systems Constitutional: Negative for appetite change, chills, fatigue, fever and unexpected weight change. HENT: Negative for congestion, sinus pain and sore throat. Eyes: Negative for visual disturbance. Respiratory: Negative for cough, shortness of breath and wheezing. Cardiovascular: Negative for chest pain, palpitations and leg swelling. Gastrointestinal: Negative for abdominal pain, constipation, diarrhea, nausea and vomiting. Endocrine: Negative for cold intolerance and heat intolerance. Genitourinary: Positive for dyspareunia (and dryness). Negative for difficulty urinating, dysuria, flank pain, frequency, genital sores, hematuria, menstrual problem, pelvic pain, urgency, vaginal bleeding, vaginal discharge and vaginal pain. Musculoskeletal: Negative for arthralgias and joint swelling. Skin: Negative for color change and rash. Neurological: Negative for dizziness, syncope, numbness and headaches. Hematological: Does not bruise/bleed easily. Psychiatric/Behavioral: Negative for dysphoric mood and sleep disturbance. The patient is not nervous/anxious. OBJECTIVE: Vitals: 02/24/22 1532 BP: 117/71 Pulse: 76 Weight: 80 kg (176 lb 6.4 oz) Height: 5' 5 Body mass index is 29.35 kg/m . Physical Examination: Physical Exam Constitutional: Appearance: Normal appearance. HENT: Head: Normocephalic. Neck: Thyroid: No thyroid mass or thyromegaly. Cardiovascular: Rate and Rhythm: Normal rate and regular rhythm. Pulmonary: Effort: Pulmonary effort is normal. Breath sounds: Normal breath sounds. Chest: Chest wall: No mass. Breasts: Right: Normal. No swelling, bleeding, mass, nipple discharge, skin change or tenderness. Left: Normal. No swelling, bleeding, mass, nipple discharge, skin change or tenderness. Abdominal: Palpations: Abdomen is soft. There is no mass. Tenderness: There is no abdominal tenderness. Genitourinary: Labia: Right: No rash, tenderness or lesion. Left: No rash, tenderness or lesion. Urethra: No urethral swelling. Vagina: Erythema (atrophic changes) present. No vaginal discharge, tenderness or bleeding. Uterus: Absent. Not enlarged and not tender. Adnexa: Right: No mass, tenderness or fullness. Left: No mass, tenderness or fullness. Lymphadenopathy: Cervical: No cervical adenopathy. Upper Body: Right upper body: No supraclavicular, axillary or pectoral adenopathy. Left upper body: No supraclavicular, axillary or pectoral adenopathy. Lower Body: No right inguinal adenopathy. No left inguinal adenopathy. Skin: Findings: No rash. Neurological: Mental Status: She is alert. ASSESSMENT/PLAN: Jonathon Pennington 66 y.o. presents for her routine PRODUCE SORTER exam today. Well Women Exam - Pap smear without cotesting, - Reviewed diet and exercise recommendations reviewed for bone health - Discussed recommendations on breast self-awareness and screening MMG ordered to schedule at [facility] Atrophic vaginitis We discussed vaginal atrophy, natural course, cause and treatment options. She would like to start treatment, so will initiate vaginal estrogen therapy. We discussed twice weekly usage. R/B/SE use of vaginal estrogen therapy reviewed Discussed it takes several months to see significant changes in the atrophy. New Prescriptions estradioL (ESTRACE) 0.01 % (0.1 mg/gram) vaginal cream Insert 1 (one) g into the vagina twice weekly . - RTO 12 months for routine PRODUCE SORTER exam or sooner as needed Frankie Arias CNP documented in this encounter [facility] 02-10-2022 History of Present illness Narrative [facility] [place] HEARING AID DISPENSING Name: Jonathon Pennington [facility]#: [id number] Date of Service: 02/10/2022 Date of : 1955 Age: [age] year old RIGHT: Sean Harto L90-RL SN: [id number] Earmold/Tubing/Real Estate Site Analyst/Dome: 1M/largeopen no retention line LEFT: Phonamy Duponteo L90-RL SN: [id number] Earmold/Tubing/Real Estate Site Analyst/Dome: 1M/small open no retention line Fitting Date: 01/27/2022 Repair Warranty Expiration Date: 04/06/2025 Loss/Damage Expiration Date: 04/06/2025 Fitting All Source Intelligence Technician: Cresencio Magallon CCC/Celine Dataloggin.8 hours/day Jonathon was seen today for the dispensing of the above devices within the [id number] period. Overall Jonathon is very happy with her devices and reported that she is hearing well with them. Her only concern was itching in her ears. The devices were programmed accordingly to address the outcome measures and patient's comments. According to NAL_NL2 fitting method, the patient s hearing aid was found to meet target gain for average loud speech from 250-4000 Hz.indicating Jonathon will have increased awareness to the sounds of speech when using the hearing aid. The Hearing Aid Verification Orientation Checklist (HAVOC) was administered to verify Jonathon Pennington ability to operate the devices. The following items were assessed: RECHARGEABLLE DEVICES Removing the device from the RIGHT ear no difficulty Removing the device from the LEFT ear no difficulty Placement in/Removal from recharging erp engineer no difficulty Recognize meaning of lights no difficulty Change the dome/wax guards/slim tubing, if appropriate no difficulty Inserting device into the RIGHT ear no difficulty Inserting the device into the LEFT ear no difficulty Use with telephone (placement/program/streaming) no difficulty Use of accessories (microphones/streamers) not applicable Jonathon Pennington indicated that they were very satisfied with the devices today. Based on the above statements/comments/outcomes, it is recommended that the patient be discharged and return as needed. It is recommended that the patient have a annual Hearing Aid Check to clean/check and reprogram the devices, if needed. If change in hearing has been noted, it is recommended that the patient schedules a hearing test as well. Appointments within the first year are at no charge. Appointments following the first year are a fee for service appointment. It is recommended that a medical referral is obtain for any audiologic testing. Cresencio Magallon, [facility] Clinical and Senior Hearing Implant All Source Intelligence Technician documented in this encounter [facility] 01-28-2022 Instructions Kalee Lott APRN.RACHELL - 01/28/2022 4:35 PM EDT keflex for 7 days Tylenol/ibuprofen as needed for discomfort Pyridium as ordered Increase hydration -Follow up with PCP or return to clinic if symptoms not improving in 3 days or if you develop any new (or worsening) symptoms such as fever, chills or back pain go to ER. documented in this encounter [facility] 01-28-2022 History of Present illness Narrative Subjective The history is provided by the patient. No wool hanker was used. IGOR Pennington is a 66 year old female who presents today for CC of burning urgency and frequency for 1 day, gradually worsening Positive for Dysuria, Increase in frequency of urination, and Urgency, Negative for Sense of incomplete void, Fevers, Vomiting, Diarrhea, Abdominal pain , Back/Flank pain, Blood in urine, and Vaginal itch or discharge Chance of : No Last intercourse: n/a Any self-treatment attempted: No Number of previous UTI's in last 6 months:0 Number of previous UTI's in last 12 months: 1 Aggravating Factors: voiding Alleviating Factors include Increasing fluids and cranberry with minimal relief in symptoms. BP 122/68 Pulse 65 Temp 36.3 C (97.4 F) Resp 18 Wt 80.5 kg (177 lb 6.4 oz) SpO2 97% Social History Tobacco Use Smoking status: Never Smokeless tobacco: Never Substance Use Topics Alcohol use: Never Drug use: Never PAST MEDICAL HISTORY Diagnosis Date Diabetes (HCC) High cholesterol Hypothyroid I have confirmed and edited as necessary, the [facility] Review of Systems Constitutional: Negative for chills and fever. Gastrointestinal: Negative for abdominal pain and vomiting. Genitourinary: Positive for dysuria, frequency and urgency. Negative for flank pain and hematuria. Objective Physical Exam Vitals and nursing note reviewed. Constitutional: Appearance: Normal appearance. Abdominal: General: Bowel sounds are normal. There is no abdominal bruit. Palpations: Abdomen is not rigid. There is no mass or pulsatile mass. Tenderness: There is abdominal tenderness (mild) in the suprapubic area. There is no guarding or rebound. Negative signs include Jc's sign and McBurney's sign. Neurological: Mental Status: She is alert and oriented to person, place, and time. Psychiatric: Mood and Affect: Affect normal. ASSESSMENT/PLAN: 1. Urgency of urination - ICD9: 788.63, ICD10: R39.15 (primary diagnosis) - UA DIP, URINE (POC) - URINE CULTURE 2. Acute lower UTI - ICD9: 599.0, ICD10: N39.0 acute - UA positive for arnulfo esterase and hematuria - Send urine for culture - Begin treatment with kelfex for 7 days - Patient education for prevention given - URINE CULTURE Diagnosis and treatment plan were discussed and questions were answered to the patient's satisfaction. Pt acknowledged understanding of concepts and follow up plan. Specific signs and symptoms that would indicate the need for higher level of care were discussed in detail warranting prompt ER evaluation. Kalee Lott APRN.RACHELL documented in this encounter [facility] 01-27-2022 History of Present illness Narrative Head and Neck [place] HEARING AID FITTING Name: Jonathon Pennington [facility]#: [id number] Date of Service: 01/27/2022 Date of : 1955 Age: [age] year old RIGHT: Sean Chavez L90-RL SN: [id number] Earmold/Tubing/Real Estate Site Analyst/Dome: 1M/medium open no retention line LEFT: Sean Chavez L90-RL SN: [id number] Earmold/Tubing/Real Estate Site Analyst/Dome: 1M/medium open no retention line Fitting Date: 01/27/2022 Repair Warranty Expiration Date: 04/06/2025 Loss/Damage Expiration Date: 04/06/2025 Fitting All Source Intelligence Technician: Cresencio Magallon CCC/Celine This patient was seen today for a hearing aid fitting of the above devices. The devices were programmed to meet the patient's initial needs. Device counseling was provided covering the following points: 1. use of the rechargeable unit 2. device insertion and removal 3. changing domes/wax traps 4. connecting smart phone (iPhone) to the devices 5. demonstrating appellate conferee apps Patient counseling was provided addressing the following points: 1. use/wear time 2. realistic expectations and need to return for fine-tuning 3. communication strategies to optimize hearing aid performance The purchase agreement was completed along with the Hearing Aid Fitting Checklist. The original paperwork was given to Jonathon (copies were placed in the CANELA file). The Hearing Aid Dispensing Appointment will be scheduled for 2-3 weeks. Jonathon was taken to financial counselors to pay for the devices in full. Total cost of the devices is $5350 plus the $300 nonrefundable fitting fee. Recommendations * Return within the 30 day [id number] Period for the Hearing Aid Dispensing Appointment. * Contact your diesel power shovel operator if you have any issues prior to your next appointment to address the issue in a timely manner. Call [phone] (press #4 and ask for the Audiology Journeyman Pipe Welder) and request a call back from Cresencio Magallon CCC/A Cresencio Magallon CCC-A Clinical and Senior Hearing Implant All Source Intelligence Technician documented in this encounter [facility] 10-18-2021 Miscellaneous Notes Patient notified of results, verbalized understanding of instructions given. Alka Hilario MA Patient is positive for covid please notify and tell him to follow current cdc guidelines. 5 days of quarantine and then 5 more days of masking. Follow up if symptoms worsen. Thank you negative for flu documented in this encounter [facility] 10-17-2021 History of Present illness Narrative This note was created using [employer]. Subjective Jonathon Pennington is a 66 year old female. 66 year old female with PMH hyperlipidemia and hypothyroid and DM (metformin) presents for illness. Acute onset Thursday +post nasal drainage +sore throat +cough +headache +fatigue +tired +chills Denies N/V/D Denies skin rash or lesions. Has used Ibuprofen think I have a sinus infection The history is provided by the patient. No wool hanker was used. Sinusitis This is a new problem. The current episode started in the past 7 days. The problem is unchanged. There has been no fever. Her pain is at a severity of 5/10. The pain is mild. Associated symptoms include congestion, coughing, ear pain, headaches, sinus pressure, sneezing, a sore throat and swollen glands. Pertinent negatives include no chills, diaphoresis, hoarse voice, neck pain or shortness of breath. Past treatments include acetaminophen. The treatment provided no relief. PAST MEDICAL HISTORY Diagnosis Date Diabetes (HCC) High cholesterol Hypothyroid PAST SURGICAL HISTORY Procedure Laterality Date NONE ALLERGIES Sulfa (Sulfonamide Antibiotics) and Tetanus Toxoid MEDICATIONS metformin HCl (METFORMIN ORAL) Take by mouth. SIMVASTATIN ORAL Take by mouth. LISINOPRIL ORAL Take by mouth. Levothyroxine 50 mcg cap Take by mouth. ergocalciferol, vitamin D2, (VITAMIN D2 ORAL) Take by mouth. FA/mv,Ca,iron,min/lycopene/lut (MULTIVITAL ORAL) Take by mouth. fluticasone (FLONASE) 50 mcg/actuation nasal spray Use 2 Sprays in each nostril once daily. Rinse mouth after use. predniSONE (DELTASONE) 10 mg tablet Take 4 tabs daily for 3 days, then 2 tabs daily for 3 days, then 1 tab daily for 3 days with food. fluticasone (FLONASE) 50 mcg/actuation nasal spray Use 2 Sprays in each nostril once daily. Rinse mouth after use. amoxicillin-clavulanic acid (AUGMENTIN) 875-125 mg per tablet Take 1 tablet by mouth twice daily for 10 days. No family history on file. Social History Tobacco Use Smoking status: Never Smoker Smokeless tobacco: Never Used Substance Use Topics Alcohol use: Not on file Drug use: Not on file Review of Systems Constitutional: Positive for fatigue. Negative for chills and diaphoresis. HENT: Positive for congestion, ear pain, sinus pressure, sneezing and sore throat. Negative for hoarse voice. Eyes: Negative for pain, discharge and itching. Respiratory: Positive for cough. Negative for apnea, choking, chest tightness and shortness of breath. Cardiovascular: Negative for chest pain, palpitations and leg swelling. Gastrointestinal: Negative for abdominal pain, diarrhea, nausea and vomiting. Musculoskeletal: Negative for arthralgias, back pain and neck pain. Skin: Negative for color change, pallor, rash and wound. Allergic/Immunologic: Negative for environmental allergies, food allergies and immunocompromised state. Neurological: Positive for headaches. Negative for dizziness and facial asymmetry. Hematological: Negative for adenopathy. Does not bruise/bleed easily. Psychiatric/Behavioral: Negative for agitation and behavioral problems. Objective BP 126/78 Pulse 90 Temp 37.1 C (98.7 F) Resp 20 Wt 80.1 kg (176 lb 9.6 oz) SpO2 96% Physical Exam Vitals and nursing note reviewed. Constitutional: General: She is not in acute distress. Appearance: Normal appearance. She is normal weight. She is not ill-appearing, toxic-appearing or diaphoretic. HENT: Head: Normocephalic and atraumatic. Right Ear: Ear canal and external ear normal. Left Ear: Ear canal and external ear normal. Nose: Nose normal. No congestion or rhinorrhea. Mouth/Throat: Mouth: Mucous membranes are moist. Pharynx: No oropharyngeal exudate or posterior oropharyngeal erythema. Eyes: General: Right eye: No discharge. Left eye: No discharge. Extraocular Movements: Extraocular movements intact. Conjunctiva/sclera: Conjunctivae normal. Pupils: Pupils are equal, round, and reactive to light. Cardiovascular: Rate and Rhythm: Normal rate and regular rhythm. Pulses: Normal pulses. Heart sounds: Normal heart sounds. No murmur heard. No friction rub. Pulmonary: Effort: Pulmonary effort is normal. No respiratory distress. Breath sounds: Normal breath sounds. No stridor. No wheezing, rhonchi or rales. Chest: Chest wall: No tenderness. Abdominal: General: Abdomen is flat. There is no distension. Palpations: Abdomen is soft. There is no mass. Tenderness: There is no abdominal tenderness. There is no right CVA tenderness, left CVA tenderness, guarding or rebound. Hernia: No hernia is present. Musculoskeletal: General: No swelling, tenderness, deformity or signs of injury. Normal range of motion. Cervical back: Normal range of motion and neck supple. No rigidity. Right lower leg: No edema. Left lower leg: No edema. Lymphadenopathy: Cervical: No cervical adenopathy. Skin: General: Skin is warm and dry. Coloration: Skin is not jaundiced or pale. Findings: No bruising, erythema, lesion or rash. Neurological: General: No focal deficit present. Mental Status: She is alert and oriented to person, place, and time. Cranial Nerves: No cranial nerve deficit. Sensory: No sensory deficit. Motor: No weakness. Coordination: Coordination normal. Gait: Gait normal. Psychiatric: Mood and Affect: Mood normal. Behavior: Behavior normal. Thought Content: Thought content normal. Judgment: Judgment normal. Assessment and Plan ASSESSMENT/PLAN: 1. Acute sinusitis, recurrence not specified, unspecified location - ICD9: 461.9, ICD10: J01.90 Likely viral X 4 days RX Flonase and Prednisone - The patient should also be given OTC cough and cold meds as needed, warm salt water gargles, throat lozenges and/or OTC throat spray as needed and nasal saline gtts and suction prn for the first 5-7 days of treatment. - Supportive care with plenty of fluids, rest, and analgesia prn. - Follow up in 3-5 days if symptoms persist or worsen. 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 She reported the right hearing aid sounds weak and started within the past 2 weeks. Otoscopy revealed clear canals bilaterally with minimal cerumen. Devices were cleaned and checked: Initial listening check revealed devices were in fair working condition as the right hearing aid was weaker than the left. Microphones and receivers were vacuumed, domes/wax traps were changed, battery contacts were cleaned and devices were placed in the drying chamber for a cycle. Final listening check revealed adequate function of the devices. Patient reported notable improvement in sound quality in the right hearing aid. Mrs. Pennington's devices were re-paired to her phone as she has a new iPhone and the hearing aids were not connecting properly. She is interested in new devices and would like to investigate a premium level GABI as she is still having some difficulty in noise. Mrs. Pennington is considering a different appellate conferee to see if listening is easier. She will be applying for a fund through her workplace to assist with hearing device cost. Patient's insurance will be billed $50 for today's visit. Recommendations: * Use of hearing devices during all waking hours except when activities preclude device safety. * Schedule an audio/hearing aid check next available to discuss new amplification. * Monitor hearing sensitivity annually or sooner if a change in hearing is noted. Cresencio Hill Clinical All Source Intelligence Technician documented in this encounter [facility] Evaluation note No assessment inform ation available [facility] Work Phone: Evaluation note Diagnosis Sensorineural hearing loss, bilateral- Primary [facility] Diagnosis Acute sinusitis, recurrence not specified, unspecified location- Primary documented in this encounter [facility] note* Diagnosis Sensorineural hearing loss, bilateral- Primary documented in this encounter [facility] note* Diagnosis Urgency of urination- Primary Acute lower UTI Urinary tract infection, site not specified documented in this encounter [facility] note* Diagnosis Encounter for gynecological examination without abnormal finding- Primary Screening for malignant neoplasm of cervix Screening for malignant neoplasm of the cervix Screening mammogram, encounter for Atrophic vaginitis Postmenopausal atrophic vaginitis [facility] Diagnosis Encounter for gynecological examination without abnormal finding- Primary Genitourinary syndrome of menopause Atrophic vaginitis Postmenopausal atrophic vaginitis documented in this encounter [facility] note* Diagnosis Sensorineural hearing loss, bilateral- Primary documented in this encounter [facility] note* Diagnosis Atrophic vaginitis- Primary Postmenopausal atrophic vaginitis Encounter for gynecological examination without abnormal finding [facility]* Diagnosis Atrophic vaginitis Postmenopausal atrophic vaginitis documented in this encounter [facility] Diagnosis Visit for screening mammogra m Diagnosis Encounter for screening mamm ogram for malignant neoplasm of breast Diagnosis Breast screening, unspecified Advance Directives No Advanced Directives Records FoundDocuments on File Type Date Recorded 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 Advance Directives and Livin g Will 01/28/2020 8:07 AM Documents on File Type Date Recorded 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 Advance Directives and Livin g Will 12/25/2018 8:07 AM Reason for Referral Status Reason Specialty Diagnoses / Procedures Referred By Contact Referred To Contact Pending Review Radiology Diagnoses Breast screening, unspecified Procedures Mammography Screening Bilateral Frankie Arias CNP [address] [address] Specialty Diagnoses / Procedures Referred By Contac t Referred To Contact Radiology Diagnoses Screening mammogram, encounter for Procedures Mammography Screening Deo Bilateral Frankie Arias CNP [address] [place] [address] Referral ID Status Reason Start Date Expiration Date V isits Requested Visits Authorized [id number] Authorized 02/24/2022 02/24/2023 1 1 Family History No Family History Records Found Relationship Condition Age at Onset Recorded Date/T edison father Coronary artery disease Unknown Myocardial infarction Unknown Health Concerns Infection Onset Date Last Indicated Resolved Time COVID-19 Rule-Out 10/17/2021 10/17/2021 Infection Onset Date Last Indicated Resolved Time COVID-19 Rule-Out 10/17/2021 10/17/2021 10/18/2021 5:10 AM EDT COVID-19 Confirmed 10/17/2021 10/17/2021 Summary Purpose Additional Source Comments Reason for Visit (unrecogniz ed section and content) Status Reason Specialty Diagnoses / Procedures Referred By Contact Referred To Contact Pending Review Radiology Diagnoses Breast screening, unspecified Procedures Mammography Screening Bilateral Frankie Arias, CHIROPRACTIC NEUROLOGIST [address] [facility] [address] [place] [id number] Reason Comments Nasal Congestion ST, head congestion, cough x4 days Reason Comments Results Reason Comments Urinary Problem Urgency, burning x 1 day. Reason Comments [facility] transfer , last pap 02/15/20 neg TRAN, last annual 02/20/21, last mmg 03/16/21; pt c/o some pain and dryness with intercourse Reason Comments Annual Exam Pt here for annual e xam, last pap 02/24/22 neg, mmg elinor'd 04/28/23 Reason Comments Annual Exam Last annual 04/08/23, pap 02/24/22 neg, mmg elinor'd 06/07/24, Hx TRAN/BSO Reason Comments Medication Refill Goals (unrecognized section and content) Goals may be documented in a n alternate sectionGoals may be documented in an alternate section Source Comments (unrecognize d section and content) In the event this informatio n is protected by the Federal Confidentiality of Alcohol and Drug Abuse Patient Records regulations: The Federal rules restrict any use of the information to criminally investigate or prosecute any alcohol or drug abuse patient.[facility] event this information is protected by the Federal Confidentiality of Alcohol and Drug Abuse Patient Records regulations: The Federal rules restrict any use of the information to criminally investigate or prosecute any alcohol or drug abuse patient.[facility] the event this information is protected by the Federal Confidentiality of Alcohol and Drug Abuse Patient Records regulations: The Federal rules restrict any use of the information to criminally investigate or prosecute any alcohol or drug abuse patient.[facility] the event this information is protected by the Federal Confidentiality of Alcohol and Drug Abuse Patient Records regulations: The Federal rules restrict any use of the information to criminally investigate or prosecute any alcohol or drug abuse patient.[facility] the event this information is protected by the Federal Confidentiality of Alcohol and Drug Abuse Patient Records regulations: The Federal rules restrict any use of the information to criminally investigate or prosecute any alcohol or drug abuse patient.[facility] the event this information is protected by the Federal Confidentiality of Alcohol and Drug Abuse Patient Records regulations: The Federal rules restrict any use of the information to criminally investigate or prosecute any alcohol or drug abuse patient.[facility] the event this information is protected by the Federal Confidentiality of Alcohol and Drug Abuse Patient Records regulations: The Federal rules restrict any use of the information to criminally investigate or prosecute any alcohol or drug abuse patient.[facility] the event this information is protected by the Federal Confidentiality of Alcohol and Drug Abuse Patient Records regulations: The Federal rules restrict any use of the information to criminally investigate or prosecute any alcohol or drug abuse patient.[facility] the event this information is protected by the Federal Confidentiality of Alcohol and Drug Abuse Patient Records regulations: The Federal rules restrict any use of the information to criminally investigate or prosecute any alcohol or drug abuse patient.[facility] the event this information is protected by the Federal Confidentiality of Alcohol and Drug Abuse Patient Records regulations: The Federal rules restrict any use of the information to criminally investigate or prosecute any alcohol or drug abuse patient.[facility] Care Teams (unrecognized sec tion and content) Vp Customer Service Relationship Specialty Start Date End Date Haydee Workman [address] [place] [address] PCP - General Family Medicine 01/28/22 Vp Customer Service Relationship Specialty Start Date End Date Haydee Workman [address] [address] PCP - General Family Medicine 01/28/22 Vp Customer Service Relationship Specialty Start Date End Date Frankie Arias, CHIROPRACTIC NEUROLOGIST PCP - General Obstetrics/Gynecology 03/14/21 Vp Customer Service Relationship Specialty Start Date End Date Haydee Workman MD [address] [place], [place] [address] PCP - General Family Medicine 01/28/22 Vp Customer Service Relationship Specialty Start Date End Date Haydee Workman MD [address] [place], [place] [id number] PCP - General Family Medicine 01/28/22 Team Status: Active Member Role Status Dates Dr. Alfonso Valle MD Family Provider Active Dr. Haydee Workman MD Primary Care Provider Active Team Status: Inactive Member Role Status Dates Dr. Haydee Workman MD Primary Care Prov ider, Attending Provider, Referring Provider Active Vp Customer Service Relationship Specialty Start Date End Date Frankie Arias CNP [address] [place] [id number] PCP - General Obstetrics/Gynecology 03/14/21 Vp Customer Service Relationship Specialty Start Date End Date Haydee Workman MD [address] [place] [address] PCP - General Family Medicine 01/28/22 Vp Customer Service Relationship Specialty Start Date End Date Frankie Arias CNP [address] [place] [id number] PCP - General Obstetrics/Gynecology 03/14/21 Vp Customer Service Relationship Specialty Start Date End Date Frankie Arias CNP [address] [place] [id number] PCP - General Obstetrics/Gynecology 03/14/21 INFORMATION SOURCE (unrecogn ized section and content) DATE CREATED AUTHOR 04/23/2024 [facility] DATE CREATED AUTHOR AUTHOR'S ORGANIZ ATION 06/13/2024 [facility] DATE CREATED AUTHOR AUTHOR'S ORGANIZ ATION 07/23/2024 [facility] DATE CREATED AUTHOR AUTHOR'S ORGANIZ ATION 10/31/[address] [facility] FOR RECORDS PERTAINING TO PATIENTS WHO ARE OR HAVE BEEN ENROLLED IN A CHEMICAL DEPENDENCY/SUBSTANCEABUSE PROGRAM, SOME INFORMATION MAY BE OMITTED. This clinical summary was aggregated from multiple sources. Caution should be exercised in using it in the provision of clinical care. This summary normalizes information from multiple sources, and as a consequence, information in this document may materially change the coding, format and clinical context of patient data. In addition, data may be omitted in some cases. CLINICAL DECISIONS SHOULD BE BASED ON THE PRIMARY CLINICAL RECORDS. [facility]. provides no warranty or guarantee of the accuracy or completeness of information in this document.
[2024-11-10 08:09] LABS: Hematocrit 40.0 % (37-47); Hemoglobin 13.5 g/dL (12.0-15.0); Immature Granulocytes Count 0.020 X10^3/uL (0.0-0.0); Mean Corp Hgb Conc 33.8 g/dL (32-36); Mean Corpuscular Volume 92.4 fL (81-99); Mean Platelet Vol. 10.0 fl (6.2-12.0); NRBC Flagged by Analyzer 0 % (0-5); Platelet Count 284 K/mm3 (150-450); RBC Distribution Width CV 12.0 % (11.6-14.6); RBC Distribution Width SD 41.0 fl (35.1-43.9); Red Blood Count 4.33 M/mm3 (4.2-5.4); White Blood Count 6.6 K/mm3 (4.4-11.0)
[2024-11-10 08:46] LABS: Creatinine, Urine (random) 259.00 mg/dL (28.00-217.00); Microalbumin,Random Urine 30.8 mg/L (<20 mg/L)
[2024-11-10 09:01] LABS: AST(SGOT) 21 U/L (<=31); Alanine Aminotransfer ALT/SGPT 16 U/L (<=34); Albumin, Serum 4.3 g/dL (3.4-4.8); Alkaline Phosphatase 88 U/L (35-104); Anion Gap 13 (5-15); BUN 16 mg/dL (4-19); BUN/Creat Ratio 19.9 RATIO (10-20); Calcium,Total 9.4 mg/dL (7.6-11.0); Carbon Dioxide 23.7 mmol/L (21.0-32.0); Chloride 103 mmol/L (98-108); Cholesterol 182 mg/dL (<=200); Globulin 2.5 g/dL (2.2-4.2); Glucose 135 mg/dL (70-99); Low Density Lipoprotein Calc. 98 mg/dL; Potassium 4.2 mmol/L (3.3-5.1); Triglycerides 214 mg/dL; Very Low Density Lipoprotein 43 mg/dL (5-40); Vitamin D,25 Hydroxy 59.9 ng/mL (30-100); cholesterol:hdl ratio screen 4.45
== END | disposition home or self-care (01) ==
LOC: LAB 07:35
PROVIDERS: PCP Family Medicine; Referring Provider Family Medicine; Visit Provider Family Medicine
DX: E11.9 Type 2 diabetes mellitus without complications (principal); E03.9 Hypothyroidism, unspecified; E55.9 Vitamin D deficiency, unspecified
CPT/HCPCS: 36415; 80053; 80061; 82043; 82306; 82570; 83036; 84443; 85025